=== PATIENT | female | born 1955 | race Caucasian/White ===

== ENCOUNTER 2019-12-04 12:46 | Outpatient (CLI) | payer MEDICARE, SELFPAY ==
--- NOTE | 2019-12-04 12:57 | MM_ITS ---
WS: [id number] BILATERAL DIGITAL SCREENING MAMMOGRAPHY WITH CAD CLINICAL INFORMATION: SCREENING HISTORY: Screening mammogram. No current complaints. COMPARISON: December 12, 2017 TECHNIQUE: Bilateral CC and MLO views. FINDINGS: The breasts are composed of heterogeneous fibroglandular density tissue, which can limit the detectio n of small underlying mass lesions. Lucent centered calcification right breast. No suspicious mass, a symmetry, calcifications, or architectural distortion. No evidence of malignancy. MM/[place] [id number] IMPRESSION: BI-RADS: 2-Benign FOLLOW UP: 1 Year Follow-up Recommend return to annual screening mammography.
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
== END 2019-12-04 12:47 | disposition home or self-care (01) ==
LOC: RADSHAW 12:54
PROVIDERS: Family Provider Family Medicine; PCP Family Medicine; Visit Provider Family Medicine
DX: Z12.31 Encounter for screening mammogram for malignant neoplasm of breast (principal); N95.8 Other specified menopausal and perimenopausal disorders; M85.80 Other specified disorders of bone density and structure, unspecified site
CPT/HCPCS: 77067; 77080

== ENCOUNTER → 2020-04-13 09:37 | Outpatient (BNVA) | payer MEDICARE, SELFPAY | PROVIDERS: Family Provider Family Medicine; PCP Family Medicine; Visit Provider Internal Medicine Rheumatology | DX: M05.9 Rheumatoid arthritis with rheumatoid factor, unspecified (principal); Z79.899 Other long term (current) drug therapy; M20.41 Other hammer toe(s) (acquired), right foot; M20.42 Other hammer toe(s) (acquired), left foot; F17.210 Nicotine dependence, cigarettes, uncomplicated; L84 Corns and callosities | CPT/HCPCS: 36415; 80076; 82565; 85025; 85651; 86140; 99214 ==

== ENCOUNTER → 2021-01-11 14:55 | Outpatient (BNVA) | payer MEDICARE, SELFPAY | PROVIDERS: Family Provider Family Medicine; PCP Family Medicine; Visit Provider Internal Medicine Rheumatology | DX: M06.041 Rheumatoid arthritis without rheumatoid factor, right hand (principal); M06.042 Rheumatoid arthritis without rheumatoid factor, left hand; M20.41 Other hammer toe(s) (acquired), right foot; M20.42 Other hammer toe(s) (acquired), left foot; Z79.899 Other long term (current) drug therapy; F17.210 Nicotine dependence, cigarettes, uncomplicated | CPT/HCPCS: 99214 ==

== ENCOUNTER 2021-09-14 13:34 | Outpatient (CLI) | payer MEDICARE, SELFPAY ==
--- NOTE | 2021-09-14 13:47 | CT_ITS ---
WS: [id number] LDCT LUNG CANCER SCREENING HISTORY: NICOTINE DEPENDENCE,CIGARETTES TECHNIQUE: Axial imaging performed from the apices to 1 cm below the costophrenic angles. Coronal and sagittal reformats are submitted with axial MIP series. All CT scans at [facility] use at least one of these dose optimization techniques: automated exposure control; mA and/or kV adjustment per patient size (includes targeted exams where dose is matched to clinical indication); or iterativ e reconstruction. DLP: 56.17 mGy.cm DIvol: 1.58 mGy COMPARISON: 02/12/2013 Diagnostic quality: Satisfactory Lung Nodules: Stable linear nodule and thickening along the RIGHT minor fissure unchanged since 2012. No additional pulmonary nodule or endobronchial lesions. Lungs: Mild hyperexpansion of the lungs. Heart: Heart is normal size. Mild pericardial thickening. Other findings: Moderate atherosclerosis aorta with ectasia. Normal size pulmonary artery. Cholelithi asis. CT/CT lung screening [id number] IMPRESSION: LUNG-RADS: 1-Negative FOLLOW UP: 12 Month: Continue annual screening with LDCT OTHER FINDINGS (S MODIFIER): None.
== END 2021-09-14 13:35 | disposition home or self-care (01) ==
LOC: CT 13:37
PROVIDERS: PCP Family Medicine; Visit Provider Family Medicine
DX: Z12.2 Encounter for screening for malignant neoplasm of respiratory organs (principal); F17.210 Nicotine dependence, cigarettes, uncomplicated
CPT/HCPCS: 71271

== ENCOUNTER 2021-11-22 17:56 | Emergency (ER) | payer MEDICARE, SELFPAY ==
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
[2021-11-22 18:38] VITALS: BP 165/83; PULSE 80; RESP 18; TEMP 36.8; O2SAT 92; BMI 27.8
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
== END 2021-11-22 19:29 | disposition home or self-care (01) ==
PROVIDERS: Emergency Provider Emergency Medicine; PCP Family Medicine
DX: S13.4XXA Sprain of ligaments of cervical spine, initial encounter (principal); S00.93XA Contusion of unspecified part of head, initial encounter; V89.2XXA Person injured in unspecified motor-vehicle accident, traffic, initial encounter; Y92.410 Unspecified street and highway as the place of occurrence of the external cause; E11.9 Type 2 diabetes mellitus without complications; F17.200 Nicotine dependence, unspecified, uncomplicated; Z79.52 Long term (current) use of systemic steroids; Z79.84 Long term (current) use of oral hypoglycemic drugs; Z79.4 Long term (current) use of insulin
CPT/HCPCS: 70450; 72125; 72128; 72131; 99282

== ENCOUNTER → 2022-05-29 14:50 | Outpatient (BNVA) | payer MEDICARE, SELFPAY | PROVIDERS: PCP Family Medicine; Visit Provider Internal Medicine Rheumatology | DX: M06.041 Rheumatoid arthritis without rheumatoid factor, right hand (principal); M06.042 Rheumatoid arthritis without rheumatoid factor, left hand; Z79.899 Other long term (current) drug therapy; L84 Corns and callosities; M20.40 Other hammer toe(s) (acquired), unspecified foot; F17.200 Nicotine dependence, unspecified, uncomplicated; Z71.89 Other specified counseling | CPT/HCPCS: 36415; 80076; 82565; 85025; 86140; 99214 ==

== ENCOUNTER → 2022-08-27 13:49 | Outpatient (BNVA) | payer MEDICARE, SELFPAY | PROVIDERS: PCP Family Medicine; Visit Provider Internal Medicine Rheumatology | DX: M06.041 Rheumatoid arthritis without rheumatoid factor, right hand (principal); M06.042 Rheumatoid arthritis without rheumatoid factor, left hand; Z79.899 Other long term (current) drug therapy; Z71.89 Other specified counseling; M20.40 Other hammer toe(s) (acquired), unspecified foot; F17.200 Nicotine dependence, unspecified, uncomplicated | CPT/HCPCS: 36415; 80076; 82565; 85025; 86140; 99214 ==

== ENCOUNTER → 2023-02-19 13:06 | Outpatient (BNVA) | payer MEDICARE, SELFPAY | PROVIDERS: PCP Family Medicine; Visit Provider Internal Medicine Rheumatology | DX: Z79.899 Other long term (current) drug therapy (principal); M06.041 Rheumatoid arthritis without rheumatoid factor, right hand; M06.042 Rheumatoid arthritis without rheumatoid factor, left hand; Z71.89 Other specified counseling | CPT/HCPCS: 99214 ==

== ENCOUNTER 2023-02-21 11:39 | Outpatient (CLI) | payer MEDICARE, SELFPAY ==
--- NOTE | 2023-02-21 11:49 | MM_ITS ---
WS: [id number] BILATERAL SCREENING DIGITAL TOMOSYNTHESIS MAMMOGRAM WITH CAD HISTORY: SCREEN COMPARISON: 12/04/2019, 12/12/2017 Bilateral CC and MLO views with tomosynthesis and synthetic mammography submitted. Computer aided det ection analyzed. Breast composition: There are scattered areas of fibroglandular density. No suspicious masses, microc alcifications or architectural distortion. Benign calcifications RIGHT breast. MM/[place] [id number] IMPRESSION: BI-RADS: 2-Benign FOLLOW UP: 1 Year Follow-up
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
== END 2023-02-21 11:40 | disposition home or self-care (01) ==
LOC: RAD 11:43
PROVIDERS: PCP Family Medicine; Visit Provider Family Medicine
DX: Z12.31 Encounter for screening mammogram for malignant neoplasm of breast (principal); Z78.0 Asymptomatic menopausal state
CPT/HCPCS: 77063; 77067; 77080

== ENCOUNTER 2023-03-13 05:44 | Emergency (ER) | payer MEDICARE, SELFPAY ==
[2023-03-13] VITALS (8 sets, daily range): BP systolic 154–196; BP diastolic 55–85; PULSE 70–91; RESP 16–19; TEMP 37; O2SAT 86–93; BMI 25.8
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
[2023-03-13 05:56] LABS: Basophils # 0.1 10^3/uL (0.0-0.1); Basophils % 0.9 %; Eosinophils # 0.1 10^3/uL (0.0-0.8); Eosinophils % 0.9 %; Hematocrit 45.4 % (37.0-47.0); Lymphocytes # 3.5 10^3/uL (0.8-4.8); Lymphocytes % 30.2 %; Mean Corpuscular Hemoglobin 31.3 pg (28.0-34.0); Mean Corpuscular Volume 94.6 fl (81-99); Mean Platelet Volume 10.2 fL (7.4-10.4); Monocytes # 0.5 10^3/uL (0.2-0.9); Monocytes % 4.2 %; Neutrophils # 7.37 10^3/uL (1.8-7.7); Neutrophils % 63.3 %; Nucleated Red Blood Cells % 0 %; Platelet Count 370 10^3/cmm (130-400); Red Cell Distribution Width 13.2 % (12.1-15.1); White Blood Count 11.6 10^3/uL (4.0-10.0)
--- NOTE | 2023-03-13 06:00 | XRR_ITS ---
PROCEDURE INFORMATION: Exam: XR Chest Exam date and time: 03/13/2023 6:07 AM Age: 67 years old Clinical indication: Dyspnea/cough TECHNIQUE: Imaging protocol: Radiologic exam of the chest. Views: 1 view. COMPARISON: CT CHEST 09/14/2021 2:05 PM FINDINGS: Lungs: No focal peripheral lung consolidation, air bronchogram formation, or silhouette sign. Pleural spaces: No pleural effusion or pneumothorax. Heart/Mediastinum: The cardiac silhouette is not enlarged. The mediastinal contours are normal. Bones/joints: No acute osseous abnormality. XR/XR chest 1V portable [id number] IMPRESSION: No sign of pneumonia.
--- NOTE | 2023-03-13 06:05 | ECG_ITS ---
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 Measurements Intervals [place] Rate: 72 P: 44 NV: 192 QRS: 44 QRSD: 96 T: 68 QT: 421 QTc: 462 Interpretive Statements SINUS RHYTHM MINIMAL ST DEPRESSION [0.025+ mV ST DEPRESSION] No previous ECG available for comparison Electronically Signed On 03-13-2023 20:59:53 CDT by Zuri Minaya M.D. [id number]
[2023-03-13 06:13] LABS: Glucose Point of Care 193 mg/dL (70-110)
[2023-03-13 06:15] LABS: Alanine Aminotransferase 33 U/L (0-33); Albumin Level 4.7 g/dL (3.5-5.2); Alkaline Phosphatase 115 U/L (35-105); Anion Gap 17.1 (5-19); Aspartate Amino Transferase 19 U/L (0-32); Blood Urea Nitrogen 12 mg/dL (8-23); Calcium 9.5 mg/dL (8.5-10.5); Carbon Dioxide 26 mmol/L (22-29); Chloride 104 mmol/L (98-107); Globulin 3.1 g/dL (1.3-4.6); Glomerular Filtration Rate 99.7 mL/min (90-130); Glucose 172 mg/dL (65-115); Lipase 25 U/L (13-60); Osmolality Calculated 300 mOsm/kg (285-295); Potassium 4.1 mmol/L (3.5-5.1); Sodium 143 mmol/L (136-145); Total Bilirubin 0.3 mg/dL (0.15-1.2); Total Protein 7.8 g/dL (6.6-8.7)
[2023-03-13] MEDS: labetalol 5 mg/mL SDV 20mL 10 MG IVP (06:25)
[2023-03-13] MEDS: promethazine 25 mg/mL SDV 1 mL IM (06:25)
[2023-03-13 06:26] LABS: Urine Appearance Cloudy (CLEAR); Urine Color Yellow (Yellow)
[2023-03-13 06:29] LABS: Protein Urine Trace (Negative); Specific Gravity, Urine 1.015 (1.005-1.030); pH Urine 8 (5-7)
[2023-03-13 06:30] LABS: Add Urine Culture? Yes; Add Urine Microscopic? YES; Bacteria Urine 3+ /hpf; Bilirubin Urine Neg (Negative); Blood Urine Trace (Negative); Glucose Urine UA 4+ (Normal); Ketones Urine Negative (Negative); Leukocyte Esterase Urine Negative (Negative); Mucus Urine 1+ /hpf; Nitrate Urine Negative (Negative); RBC Urine 0-4 /hpf (0-2); Urobilinogen Urine Neg (Negative); WBC Urine 0-4 /hpf (0-5)
--- NOTE | 2023-03-13 06:30 | CTR_ITS ---
PROCEDURE INFORMATION: Exam: CTA Chest With Contrast Exam date and time: 03/13/2023 6:46 AM Age: 67 years old Clinical indication: Fever and shortness of breath. TECHNIQUE: Imaging protocol: Computed tomographic angiography of the chest with contrast. 3D rendering (Not supervised by radiologist): MIP and/or 3D reconstructed images were created by the technologist. Radiation optimization: All CT scans at this facility use at least one of these dose optimization techniques: automated exposure control; mA and/or kV adjustment per patient size (includes targeted exams where dose is matched to clinical indication); or iterative reconstruction. Contrast material: OMNI 350; Contrast volume: 66 ml; Contrast route: INTRAVENOUS (IV); REPORTING DATA: Count of CT and Cardiac NM exams in prior 12 months: This patient has received 0 known CTs and 0 known cardiac nuclear medicine studies in the 12 months prior to the current study. COMPARISON: 1. CT CHEST 09/14/2021 2:05 PM 2. XR CHEST 03/13/2023 6:07 AM RADIATION DOSE METRICS: Total DLP (mGy-cm): 397.559 FINDINGS: Limitations: The study is technically limited by breathing motion artifact. Pulmonary arteries: No sign of acute pulmonary embolism. Aorta: No thoracic aortic aneurysm or dissection when allowing for motion artifact. Lungs: Bilateral dependent atelectasis. Fibrosis with traction bronchiectasis in the medial right lower lobe adjacent to thoracic spine osteophytes. Pleural spaces: No pleural effusion or pneumothorax. Heart: The heart is not enlarged. Trace pericardial effusion. Coronary arteries: Calcified coronary artery atherosclerotic plaque visualized. Lymph nodes: No pathologically enlarged lymph nodes. Gallbladder and bile ducts: There is cholelithiasis. Bones/joints: There are multilevel bridging osteophytes in the spine. Soft tissues: No acute soft tissue abnormality. CT/CT angio chest PE protcl [id number] IMPRESSION: No sign of acute pulmonary embolism.
[2023-03-13 06:41] LABS: NT Pro B Type Natriuretic Pept 36 pg/mL (0-125)
[2023-03-13] MEDS: iohexol 350 mg/mL 500 mL Btl (per mL) IV (06:59)
--- NOTE | 2023-03-13 07:22 | CT_ITS ---
WS: [id number] CT HEAD TECHNIQUE: Noncontrast CT of the head obtained from the skullbase to the vertex. CLINICAL INFORMATION: headache COMPARISON: CT November 22, 2021 DLP: 1088.[address] scans at [facility] use at least one of these dose optimization techniques: automated e xposure control; mA and/or kV adjustment per patient size (includes targeted exams where dose is matc hed to clinical indication); or iterative reconstruction. FINDINGS: Intracranial contrast from recent PE study. No evidence of intracranial hemorrhage or mass effect. Ventricular system and basal cisterns are cabrera nt. Mild small vessel changes with mild parenchymal volume loss. No extra-axial fluid collections. No evidence of mass or mass effect. Chronic lacunar infarct LEFT caudate. Vascular calcification. Air-fluid levels in the paranasal sinuses compatible with sinusitis. Partial opacification the ethmoi d air cells. Air-fluid levels in the maxillary sinuses. Mastoid air cells well aerated. CT/CT head wo con* [id number] IMPRESSION: 1. No evidence of intracranial hemorrhage or mass effect. 2. Paranasal sinusitis with air-fluid levels. 3. No acute intracranial findings.
[2023-03-13] MEDS: hyDRALAzine 20 mg/mL INJ 1 mL IVP (07:49)
[2023-03-13] MEDS: acetaminophen 500 mg Tablet 1000 MG PO (09:34)
== END 2023-03-13 11:18 | disposition home or self-care (01) ==
PROVIDERS: Emergency Provider Family Medicine; PCP Family Medicine
DX: J44.9 Chronic obstructive pulmonary disease, unspecified (principal); R09.02 Hypoxemia; I10 Essential (primary) hypertension; Z79.84 Long term (current) use of oral hypoglycemic drugs; Z79.4 Long term (current) use of insulin; E11.9 Type 2 diabetes mellitus without complications
CPT/HCPCS: 36416; 70450; 71045; 71275; 80053; 81001; 82962; 83690; 83880; 85025; 87077; 87086; 87186; 93005; 96372; 96374; 96375; 99285; J0360; J2550; J3490; Q9967

== ENCOUNTER 2023-04-19 19:40 | Emergency (ER) | payer MEDICARE, SELFPAY ==
[2023-04-19 19:47] VITALS: BP 147/77; PULSE 60; RESP 15; TEMP 36.8; O2SAT 95
[2023-04-19 20:32] VITALS: BP 175/73; RESP 16; O2SAT 93
--- NOTE | 2023-04-19 20:39 | XRR_ITS ---
PROCEDURE INFORMATION: Exam: XR Left Foot Exam date and time: 04/19/2023 9:03 PM Age: 68 years old Clinical indication: Injury or trauma; Fall; Other: Pain; Injury details: PT states HX L foot 5th metatarsal FX; Additional info: Pain post fall TECHNIQUE: Imaging protocol: Radiologic exam of the left foot. Views: 3 or more views. COMPARISON: No relevant prior studies available. FINDINGS: Bones/joints: Normal. Soft tissues: Normal. XR/XR foot LT min 3V* [id number] IMPRESSION: No acute findings.
--- NOTE | 2023-04-19 21:30 | ED_ITS ---
HPI - Extremity Problem General: Chief complaint: Extremity Injury, Lower Stated complaint: left foot injury Time Seen by Provider: 04/19/23 20:27 History of Present Illness: 68 years old female presents emergency room with left foot pain since 3:30 PM after sustaining a fall while at home. Patient described the pain as sharp throbbing sensation with severity of 7 out of 10 especially weightbearing and movement. Pain is relieved with rest. Patient [place] any head injury no loss of consciousness no neck pain nausea or vomiting. No chest pain or abdominal pain. Denies any numbness or tingling to the lower extremities. Review of Systems General: Reports: 10 or more systems reviewed and unremarkable except in HPI and below Musc: Reports: extremity pain; Denies: deformity PFSH ED PFSH: Medical History Chronic steroid use Diabetes mellitus Foot callus Hammertoes of both feet High risk medication use Immunization counseling Seronegative rheumatoid arthritis of both hands Seropositive rheumatoid arthritis Surgical History No pertinent past surgical history Family History Other Arthritis Cancer Heart disease Stroke Social History Smoking and tobacco status: never smoked Alcohol intake: never Physical Exam Const: COMMON NORMALS: no acute distress HENMT: COMMON NORMALS: normocephalic and external ears normal HEAD & SCALP: normocephalic EXTERNAL EAR: Yes external ears normal Neck/C-Spine: COMMON NORMALS: full ROM Resp: COMMON NORMALS: normal respiratory effort Extremity: LEFT LOWER EXTREMITY: Yes foot & digits Left foot and digits: Yes inspection (No visible deformity open wound), Yes palpation, Yes neurovascular exam (No abnormalities) and Yes tendon exam OTHER: Pain upon palpation on the lateral aspect of the foot Course Vital Signs: Vital signs: Vital Signs Temperature 98.2 F 04/19/23 19:47 Pulse Rate 60 04/19/23 19:47 Respiratory Rate 16 04/19/23 20:32 Blood Pressure 175/73 04/19/23 20:32 Pulse Oximetry 93 04/19/23 20:32 Oxygen Delivery Me thod Room Air 04/19/23 20:32 MDM - Extremity (Nontraumatic) Medical Decision Making Discussed the x-ray findings with the patient. Patient with put in a splint/wal jarret boot for sprain Differential Diagnosis Likely gout (Fracture, sprain, strain, dislocation) Lab Data Radiology Impressions Foot X-Ray 04/19/23 20:39 IMPRESSION: No acute findings. Discharge Plan Discharge Patient Disposition: Home Clinical Impression: Foot sprain, Fall Condition: Stable Prescriptions: New Percocet 2.5-325 mg tablet 1 tab PO Q8H PRN (Reason: pain) Qty: 7 0RF No Action fluoxetine [Prozac] 40 mg capsule 40 mg PO DAILY glipizide 10 mg tablet 10 mg PO DAILY atorvastatin [Lipitor] 80 mg tablet 80 mg PO DAILY lorazepam 0.5 mg tablet 0.5 mg PO DAILY PRN lisinopril 40 mg tablet 40 mg PO DAILY Janumet XR 100-1,000 mg tablet, ER multiphase 24 hr 1 tab PO DAILY Jardiance 10 mg tablet 10 mg PO DAILY ezetimibe [Zetia] 10 mg tablet 10 mg PO DAILY pantoprazole 40 mg tablet,delayed release (DR/EC) 40 mg PO DAILY Qty: 30 3RF insulin degludec SUBCUT Humira Pen 40 mg/0.8 mL pen injector kit 40 mg SUBCUT Q14D Qty: 2 3RF Rx Instructions: 340b methotrexate sodium 2.5 mg tablet See Rx Instructions PO Q7D Qty: 40 3RF Hold Instructions: Doctor's Order Rx Instructions: Split dose...4 tabs in am and 4 tabs in pm on same day once a week. PO every 7 days; diclofenac sodium 1 % gel 4 g topical QID Qty: 100 2RF Rx Instructions: apply to affected area as needed prednisone 5 mg tablet 5 mg PO DAILY Qty: 60 2RF folic acid 1 mg tablet 1 mg PO DAILY Qty: 90 1RF methocarbamol 750 mg tablet 750 mg PO Q6H PRN (Reason: spasms) Qty: 20 0RF Naprosyn 500 mg tablet 500 mg PO BID PRN (Reason: pain) Qty: 20 0RF amlodipine 5 mg tablet 5 mg PO DAILY Qty: 30 0RF Toprol XL 25 mg tablet extended release 24 hr 12.5 mg PO DAILY Qty: 15 0RF Discharge Orders: Discharge ED (Routine); Ordered 04/19/23 Ordered By: Sloane Benjamin Referrals: Arnoldo Avalos MD [Primary Care Provider] - Sloane Benjamin MD [Emergency Provider] - Patient Instructions: Opioid Safety, Pain Management Coding Level of Care Code ED Client Experience Specialist for Chg Geraldo
== END 2023-04-19 23:00 | disposition home or self-care (01) ==
PROVIDERS: Emergency Provider Family Medicine; PCP Family Medicine
DX: S93.602A Unspecified sprain of left foot, initial encounter (principal); Z79.84 Long term (current) use of oral hypoglycemic drugs; Z79.4 Long term (current) use of insulin; E11.9 Type 2 diabetes mellitus without complications; W19.XXXA Unspecified fall, initial encounter
CPT/HCPCS: 73630; 99283

== ENCOUNTER → 2023-07-10 14:57 | Outpatient (BNVA) | payer MEDICARE, SELFPAY | PROVIDERS: PCP Family Medicine; Visit Provider Internal Medicine Rheumatology | DX: M06.041 Rheumatoid arthritis without rheumatoid factor, right hand (principal); M06.042 Rheumatoid arthritis without rheumatoid factor, left hand; Z79.899 Other long term (current) drug therapy; Z71.89 Other specified counseling | CPT/HCPCS: 36415; 80076; 82565; 85025; 86140; 99214 ==

== ENCOUNTER → 2023-10-16 13:45 | Outpatient (BNVA) | payer MEDICARE, SELFPAY | PROVIDERS: PCP Family Medicine; Visit Provider Internal Medicine Rheumatology | DX: Z79.899 Other long term (current) drug therapy (principal); M06.041 Rheumatoid arthritis without rheumatoid factor, right hand; M06.042 Rheumatoid arthritis without rheumatoid factor, left hand; Z71.89 Other specified counseling | CPT/HCPCS: 99214 ==

== ENCOUNTER 2024-02-08 21:33 | Emergency (ER) | payer MEDICARE, SELFPAY ==
[2024-02-08 21:40] VITALS: BP 178/77; PULSE 90; RESP 18; TEMP 36.4; O2SAT 98
--- NOTE | 2024-02-08 22:23 | ED_ITS ---
HPI - Abdominal Pain 2 General: Chief Complaint: Abdominal Pain Stated Complaint: right abdomen pain Time Seen by Provider: 02/08/24 22:22 History of Present Illness: 68-year-old female comes in today with c omplaints of right flank pain radiating to the right abdomen. Patient reports pain started about 11:00 this morning. Patient appears in mild to moderate pain. Patient appears nontoxic. Review of Systems 2 General: Reports: 10 or more systems reviewed and unremarkable except in HPI and below GI: Reports: abdominal pain PFSH ED 2 PFSH: Medical History Chronic steroid use Seronegative rheumatoid arthritis of both hands Hammertoes of both feet Foot callus Diabetes mellitus High risk medication use Immunization counseling Seropositive rheumatoid arthritis Surgical History No pertinent past surgical history Family History Other Arthritis Cancer Heart disease Stroke Social History Smoking and tobacco/nicotine status: never used tobacco/nicotine Alcohol intake: never Physical Exam 2 Const: COMMON NORMALS: alert HENMT: COMMON NORMALS: normocephalic HEAD & SCALP: normocephalic Neck/C-Spine: COMMON NORMALS: full ROM Resp: COMMON NORMALS: normal respiratory effort and clear to auscultation bilaterally AUSCULTATION: clear to auscultation bilaterally Cardio: COMMON NORMALS: regular rate and regular rhythm RATE: regular rate RHYTHM: regular rhythm GI: COMMON NORMALS: Soft to palpation PALPATION: Yes Soft to palpation : BLADDER/KIDNEY EXAM: Yes CVA tenderness on the right Back/Pelvis: COMMON NORMALS: thoracic and lumbar spine normal to inspection GENERAL BACK: Yes CVA tenderness Extremity: COMMON NORMALS: normal to inspection Neuro: SENSORIUM/ORIENTATION: Yes alert Skin: COMMON NORMALS: turgor normal GENERAL SKIN EXAM: turgor normal Course 2 Vital Signs: Vital signs: Vital Signs Temperature 97.6 F 02/08/24 21:40 Pulse Rate 63 02/08/24 23:41 Respiratory Rate 16 02/08/24 23:41 Blood Pressure 141/81 02/08/24 23:41 Pulse Oximetry 94 02/08/24 23:41 Oxygen Delivery Me thod Room Air 02/08/24 23:41 MDM - Abdominal Pain Medical Decision Making Patient comes in today for complaints of right flank pain radiating to the right abdomen. On exam abdomen soft with tenderness in the right upper quadrant. Patient also has positive CVA tenderness. Vital signs are normal except for elevated blood pressure. Differential diagnosis includes pyelonephritis, renal calculi, gallbladder disease, pancreatitis. White blood cell count is 11.6. CMP was unremarkable. Urinalysis had positive nitrates and increased white blood cells on high frequency microscope. CT of the abdomen pelvis noted gallstones but no signs of obstruction. Remainder of exam was unremarkable. Believe the patient might have some mild pyelonephritis we will go ahead and treat with ceftriaxone and recommend cephalexin for home therapy. Patient was offered medication for pain but refused. Discussed gallstones and no signs of obstruction at this time but if patient's pain was to come back or she started having some jaundice she needed to come back in for further evaluation. Patient reported understanding of care plan need for follow-up or return to the ER. Lab Data 02/08/24 23:58 02/08/24 23:58 Labs/Radiology: Radiology Impressions Abdomen/Pelvis CT 02/08/24 23:11 IMPRESSION: 1. No acute disease. 2. No evidence of urolithiasis. 3. Cholelithiasis. Contracted gallbladder. No definitive secondary evidence of acute cholecystitis. Consider right upper quadrant ultrasound in the appropriate clinical setting. 4. Other nonemergent findings above. Laboratory Results WBC 11.67 10^3/uL (3.29-11.43) H 02/08/24 23:58 Corrected WBC Cancelled 02/08/24 23:35 RBC 4.15 10^6/uL (3.85-5.65) 02/08/24 23:58 Hgb 13.20 g/dL (11.27-16.99) 02/08/24 23:58 Hct 39.1 % (36-47) 02/08/24 23:58 MCV 94.2 fl (85-98) 02/08/24 23:58 MCH 31.8 pg (27-33) 02/08/24 23:58 MCHC 33.8 g/dL (30-55) 02/08/24 23:58 RDW 14.9 % (12.1-15.1) 02/08/24 23:58 Plt Count 290 10^3/cmm (157-399) 02/08/24 23:58 MPV 9.6 fL (7.4-10.4) 02/08/24 23:58 Gran % Cancelled 02/08/24 23:35 Neut % (Auto) 58.1 % 02/08/24 23:58 Lymph % (Auto) 34.7 % 02/08/24 23:58 [place] % (Auto) 4.5 % 02/08/24 23:58 Eos % (Auto) 1.4 % 02/08/24 23:58 Baso % (Auto) 1.0 % 02/08/24 23:58 Neut # (Auto) 6.78 10^3/uL (1.8-7.7) 02/08/24 23:58 Lymph # (Auto) 4.1 10^3/uL (0.8-4.8) 02/08/24 23:58 [place] # (Auto) 0.5 10^3/uL (0.2-0.9) 02/08/24 23:58 Eos # (Auto) 0.2 10^3/uL (0.0-0.8) 02/08/24 23:58 Baso # (Auto) 0.1 10^3/uL (0.0-0.1) 02/08/24 23:58 Absolute Gran (auto) Cancelled 02/08/24 23:35 Nucleated RBC % (auto) 0 % 02/08/24 23:58 Nucleated RBCs # 0.0 /100WBC 02/08/24 23:58 Sodium 143 mmol/L (136-145) 02/08/24 23:58 Potassium 3.6 mmol/L (3.5-5.1) 02/08/24 23:58 Chloride 110 mmol/L (98-107) H 02/08/24 23:58 Carbon Dioxide 23 mmol/L (22-29) 02/08/24 23:58 Anion Gap 13.6 (5-19) 02/08/24 23:58 BUN 14 mg/dL (8-23) 02/08/24 23:58 Creatinine 0.6 mg/dL (0.5-0.9) 02/08/24 23:58 GFR Calculation 99.4 mL/min (90-130) 02/08/24 23:58 Glucose 135 mg/dL (65-115) H 02/08/24 23:58 Calculated Osmolality 299 mOsm/kg (285-295) H 02/08/24 23:58 Calcium 9.0 mg/dL (8.5-10.5) 02/08/24 23:58 Total Bilirubin 0.2 mg/dL (0.15-1.2) 02/08/24 23:58 AST 12 U/L (0-32) 02/08/24 23:58 ALT 16 U/L (0-33) 02/08/24 23:58 Alkaline Phosphatase 105 U/L (35-105) 02/08/24 23:58 Total Protein 6.4 g/dL (6.6-8.7) L 02/08/24 23:58 Albumin 3.9 g/dL (3.5-5.2) 02/08/24 23:58 Globulin 2.5 g/dL (1.3-4.6) 02/08/24 23:58 Lipase 27 U/L (13-60) 02/08/24 23:58 Urine Color Yellow (Yellow) 02/08/24 22:00 Urine Appearance Cloudy (CLEAR) A 02/08/24 22:00 Urine pH 5 (5-7) 02/08/24 22:00 Ur Specific [place] 1.020 (1.005-1.030) 02/08/24 22:00 Urine Protein Neg (Negative) 02/08/24 22:00 Urine Glucose (UA) 4+ (Normal) H 02/08/24 22:00 Urine Ketones 1+ (Negative) H 02/08/24 22:00 Urine Blood Trace (Negative) H 02/08/24 22:00 Urine Nitrate Positive (Negative) H 02/08/24 22:00 Urine Bilirubin Neg (Negative) 02/08/24 22:00 Urine Urobilinogen Neg mg/dL (Negative) 02/08/24 22:00 Ur Leukocyte Esterase Negative (Negative) 02/08/24 22:00 Urine RBC 0-4 /hpf (0-2) H 02/08/24 22:00 Urine WBC 5-10 /hpf (0-5) H 02/08/24 22:00 Ur Squamous Epith Cells 5-10 /hpf (0-5) H 02/08/24 22:00 Amorphous Sediment Not Reportable 02/08/24 22:00 Urine Bacteria 3+ /hpf (NONE) H 02/08/24 22:00 All radiology interpretation(s) finalized by discharge Discharge Plan Discharge Patient Disposition: Home Clinical Impression: Acute pyelonephritis Cholelithiasis Qualifiers: Cholelithiasis location: gallbladder Cholecystitis presence: without cholecystitis Biliary obstruction: with biliary obstruction Qualified Code(s): K 80.21 - Calculus of gallbladder without cholecystitis with obstruction Condition: Stable Prescriptions: New cephalexin 500 mg capsule 500 mg PO BID 7 Days Qty: 14 0RF No Action fluoxetine [Prozac] 40 mg capsule 40 mg PO DAILY glipizide 10 mg tablet 10 mg PO DAILY atorvastatin [Lipitor] 80 mg tablet 80 mg PO DAILY lorazepam 0.5 mg tablet 0.5 mg PO DAILY PRN lisinopril 40 mg tablet 40 mg PO DAILY Janumet XR 100-1,000 mg tablet, ER multiphase 24 hr 1 tab PO DAILY Jardiance 10 mg tablet 10 mg PO DAILY ezetimibe [Zetia] 10 mg tablet 10 mg PO DAILY pantoprazole 40 mg tablet,delayed release (DR/EC) 40 mg PO DAILY Qty: 30 3RF insulin degludec SUBCUT diclofenac sodium 1 % gel 4 g topical QID Qty: 100 2RF Rx Instructions: apply to affected area as needed Humira Pen 40 mg/0.8 mL pen injector kit 40 mg SUBCUT Q14D Qty: 2 3RF Rx Instructions: 340b folic acid 1 mg tablet 1 mg PO DAILY Qty: 90 1RF methotrexate sodium 2.5 mg tablet See Rx Instructions PO Q7D Qty: 40 3RF Hold Instructions: Doctor's Order Rx Instructions: Split dose...4 tabs in am and 4 tabs in pm on same day once a week. PO every 7 days; prednisone 5 mg tablet 5 mg PO DAILY Qty: 60 2RF amlodipine 5 mg tablet 5 mg PO DAILY Qty: 30 0RF Toprol XL 25 mg tablet extended release 24 hr 12.5 mg PO DAILY Qty: 15 0RF Discharge Orders: Discharge ED (Routine); Ordered 02/09/24 Ordered By: Kenrick Marroquin Referrals: Avalos,Arnoldo Sidney, MD [Primary Care Provider] - Discharge Diet: Usual diet Discharge Activity: Increase activity as tolerated Patient Instructions: Kidney Infection (ED) Activity Restrictions/Additional Instructions: Take antibiotics as directed. Drink plenty of water and fluids. Continue with routine medications as directed. Follow-up with primary care in 2 to 3 days for recheck. Return to ED for worsening symptoms such as inability to hold fluids down, fever greater than 100.4, uncontrolled pain. Coding Level of Care Code ED Health Technician Hearing for Gloria Chow
[2024-02-08 23:01] LABS: Add Urine Microscopic? YES; Bacteria Urine 3+ /hpf; Bilirubin Urine Neg (Negative); Blood Urine Trace (Negative); Glucose Urine UA 4+ (Normal); Ketones Urine 1+ (Negative); Leukocyte Esterase Urine Negative (Negative); Nitrate Urine Positive (Negative); Protein Urine Neg (Negative); RBC Urine 0-4 /hpf (0-2); Urine Appearance Cloudy (CLEAR); Urine Color Yellow (Yellow); Urobilinogen Urine Neg (Negative); pH Urine 5 (5-7)
[2024-02-08 23:02] LABS: Add Urine Culture? Yes
--- NOTE | 2024-02-08 23:11 | CTR_ITS ---
PROCEDURE INFORMATION: Exam: CT Abdomen And Pelvis Without Contrast Exam date and time: 02/08/2024 11:18 PM Age: 68 years old Clinical indication: Abdominal pain; Right; Prior surgery; Surgery date: 6+ months; Surgery type: Appendectomy. Oophorectomy; Patient HX: C/O RT flank pain; Additional info: Right flank pain TECHNIQUE: Imaging protocol: Computed tomography of the abdomen and pelvis without contrast. Radiation optimization: All CT scans at this facility use at least one of these dose optimization techniques: automated exposure control; mA and/or kV adjustment per patient size (includes targeted exams where dose is matched to clinical indication); or iterative reconstruction. COMPARISON: 1. CT angio chest PE protcl [id number] 03/13/2023 6:[address] L-spine 11/22/2021 RADIATION DOSE METRICS: Total DLP (mGy-cm): 535.85 FINDINGS: Lungs: Mild dependent changes in the posterior lower lobes. Heart: Heart size is within normal limits. There is no pericardial effusion or pericardial thickening. Liver: The liver is normal. No hepatic masses are identified. Gallbladder and bile ducts: Gallstones are identified within a contracted gallbladder. No adjacent inflammatory change. Pancreas: The pancreas is atrophic without obvious abnormality. Spleen: The spleen is normal. Adrenal glands: The adrenal glands are normal. Kidneys and ureters: No renal calcifications are identified. There is no hydronephrosis. Stomach and bowel: Mild colonic diverticulosis without diverticulitis. Moderate retained stool, particularly in the right colon and cecum. There is no large or small bowel obstruction. There is no evidence of bowel wall thickening. Appendix: A normal appendix is not identified. There is no secondary evidence of acute appendicitis. Intraperitoneal space: No inflammatory changes are identified. There is no free fluid or fluid collection seen. There is no pneumoperitoneum. Vasculature: Atherosclerotic calcifications are present. No aneurysm is identified. Lymph nodes: There are no enlarged retroperitoneal or mesenteric lymph nodes. Urinary bladder: The bladder is unremarkable. Reproductive: The uterus is absent. Bones/joints: New height loss enlarged Schmorl's node in superior endplate of L3 when compared to 2021. No acute osseous abnormalities are seen. Soft tissues: Tiny periumbilical hernia containing only fat. The soft tissues are otherwise within normal limits. CT/CT kidney stone [id number] IMPRESSION: 1. No acute disease. 2. No evidence of urolithiasis. 3. Cholelithiasis. Contracted gallbladder. No definitive secondary evidence of acute cholecystitis. Consider right upper quadrant ultrasound in the appropriate clinical setting. 4. Other nonemergent findings above.
[2024-02-08] MEDS: ondansetron 2 mg/ML SDV 2 mL 4 MG IVP (23:36)
[2024-02-08] MEDS: fentaNYL 50 mcg/mL INJ 2mL IVP (23:39)
[2024-02-08] MEDS: ketorolac 30 mg/mL INJ 15 MG IVP (23:39)
[2024-02-08 23:41] VITALS: BP 141/81; PULSE 63; RESP 16; O2SAT 94
[2024-02-09 00:02] LABS: Basophils # 0.1 10^3/uL (0.0-0.1); Eosinophils # 0.2 10^3/uL (0.0-0.8); Eosinophils % 1.4 %; Hematocrit 39.1 % (36-47); Lymphocytes # 4.1 10^3/uL (0.8-4.8); Lymphocytes % 34.7 %; Mean Corpuscular HGB Conc 33.8 g/dL (30-55); Mean Corpuscular Hemoglobin 31.8 pg (27-33); Mean Corpuscular Volume 94.2 fl (85-98); Mean Platelet Volume 9.6 fL (7.4-10.4); Monocytes # 0.5 10^3/uL (0.2-0.9); Monocytes % 4.5 %; Neutrophils # 6.78 10^3/uL (1.8-7.7); Neutrophils % 58.1 %; Nucleated Red Blood Cells % 0 %; Platelet Count 290 10^3/cmm (157-399); Red Blood Count 4.15 10^6/uL (3.85-5.65); Red Cell Distribution Width 14.9 % (12.1-15.1); White Blood Count 11.67 10^3/uL (3.29-11.43)
[2024-02-09 00:22] LABS: Alanine Aminotransferase 16 U/L (0-33); Albumin Level 3.9 g/dL (3.5-5.2); Alkaline Phosphatase 105 U/L (35-105); Anion Gap 13.6 (5-19); Aspartate Amino Transferase 12 U/L (0-32); Blood Urea Nitrogen 14 mg/dL (8-23); Carbon Dioxide 23 mmol/L (22-29); Chloride 110 mmol/L (98-107); Creatinine Clr Calc Pharmacy 71.7732; Globulin 2.5 g/dL (1.3-4.6); Glomerular Filtration Rate 99.4 mL/min (90-130); Glucose 135 mg/dL (65-115); Lipase 27 U/L (13-60); Osmolality Calculated 299 mOsm/kg (285-295); Potassium 3.6 mmol/L (3.5-5.1); Sodium 143 mmol/L (136-145); Total Bilirubin 0.2 mg/dL (0.15-1.2); Total Protein 6.4 g/dL (6.6-8.7)
[2024-02-09] MEDS: cefTRIAXone 1,000 MG in sodium chloride 0.9% (plus) 50 ML 100 MG IV (01:01)
[2024-02-09] MEDS: sodium chloride 0.9% 500 ML 999 ML IV (01:01)
[2024-02-09 01:45] VITALS: BP 129/79; PULSE 63; RESP 16; O2SAT 93
== END 2024-02-09 01:43 | disposition home or self-care (01) ==
PROVIDERS: Emergency Provider Nurse Practitioner Family; PCP Family Medicine
DX: N10 Acute pyelonephritis (principal); K80.21 Calculus of gallbladder without cholecystitis with obstruction; Z79.4 Long term (current) use of insulin; Z79.890 Hormone replacement therapy; E11.9 Type 2 diabetes mellitus without complications
CPT/HCPCS: 36415; 74176; 80053; 81001; 83690; 85025; 87077; 87086; 87186; 96365; 96375; 99285; J0696; J1885; J2405; J3010; J7040

== ENCOUNTER 2024-08-30 10:03 | Inpatient (IN) | payer MEDICARE, SELFPAY ==
[2024-08-30 10:18] VITALS: BP 109/66; PULSE 85; RESP 18; TEMP 37.1; O2SAT 88; BMI 24.3
--- NOTE | 2024-08-30 10:59 | ED_ITS ---
HPI - Weakness 2 General: Chief complaint: Weakness Stated complaint: fatigue, not drinking or eating vomitting Time Seen by Provider: 08/30/24 10:27 History of Present Illness: Patient presents to the ER with complaints of weakness fatigue and inability to eat or drink anything for about the last 3 days. Patient has had nausea vomiting diarrhea. Patient says her balance is worsened. Patient does have a history of COPD but does not wear oxygen. Upon arrival her O2 sat was 88% on room air. Patient denies any abdominal pain. Patient's family says she only has eaten in about 4 days has been about a glass of milk, couple pieces of toast, and half a bottle of Gatorade. Review of Systems 2 General: Reports: 10 or more systems reviewed and unremarkable except in HPI and below PFSH ED 2 PFSH: Medical History Chronic steroid use Seronegative rheumatoid arthritis of both hands Hammertoes of both feet Foot callus Diabetes mellitus High risk medication use Immunization counseling Seropositive rheumatoid arthritis Surgical History No pertinent past surgical history Family History Other Arthritis Cancer Heart disease Stroke Social History Smoking and tobacco/nicotine status: never used tobacco/nicotine Alcohol intake: never Physical Exam 2 Const: COMMON NORMALS: no acute distress, average body habitus, patient oriented x3, no limitations, healthy appearing, alert and well nourished HENMT: COMMON NORMALS: normocephalic, atraumatic, hearing grossly normal bilaterally, external ears normal, Normal external nose present and moist oral mucous membranes HEAD & SCALP: normocephalic and atraumatic NOSE: Normal external nose present EXTERNAL EAR: Yes external ears normal Neck/C-Spine: COMMON NORMALS: full ROM, no lymphadenopathy, supple, no meningeal signs, no JVD and Thyroid normal THYROID: Thyroid normal Chest: COMMONS NORMALS: normal inspection of the chest and normal palpation of entire chest wall Resp: COMMON NORMALS: normal respiratory effort, No retractions, No use of accessory muscles and clear to auscultation bilaterally AUSCULTATION: clear to auscultation bilaterally Cardio: COMMON NORMALS: no JVD, regular rate, regular rhythm, S1 normal heart sound present, S2 normal heart sound present, No gallops present (Cardio), No clicks present (Cardio), No murmurs present (Cardio) and No rub (Cardio) R ATE: regular rate RHYTHM: regular rhythm HEART SOUNDS: S1 normal heart sound present and S2 normal heart sound present GI: COMMON NORMALS: Normal to inspection, nondistended, normoactive bowel sounds present, Soft to palpation, non-tender, No hepatosplenomegaly present and no masses PALPATION: Yes Soft to palpation and Yes No hepatosplenomegaly present Neuro: COMMON NORMALS: patient oriented x3 SENSORIUM/ORIENTATION: Yes alert MENINGEAL SIGNS: Yes no meningeal signs Course 2 Vital Signs: Vital signs: Vital Signs Temperature 100.2 F H 08/30/24 15:54 Pulse Rate 89 08/30/24 15:54 Respiratory Rate 17 08/30/24 15:54 Blood Pressure 129/65 08/30/24 15:54 Pulse Oximetry 93 08/30/24 15:54 Oxygen Delivery Me thod Nasal Cannula 08/30/24 15:54 MDM - Weakness Medical Decision Making Lab work showed white count of 38.5, CPK of approximately 919, chest x-ray showed multifocal pneumonia, patient was given 1 L bolus normal saline, 4 mg of Zofran, 3.375 g of Zosyn, blood cultures was obtained, patient will be discussed with Dr. Onofre, discussed case with Dr. Onofre we will get troponins and place patient on medical floor Medical Records I reviewed the patient's medical records. Lab Data I reviewed the patient's lab results. 08/30/24 11:12 08/30/24 10:49 Radiology Impressions Chest X-Ray 08/30/24 11:23 IMPRESSION: Imaging findings concerning for multifocal pneumonia. Laboratory Results WBC 38.57 10^3/uL (3.29-11.43) H* 08/30/24 11:12 Corrected WBC Cancelled 08/30/24 10:49 RBC 3.47 10^6/uL (3.85-5.65) L 08/30/24 11:12 Hgb 11.10 g/dL (11.27-16.99) L 08/30/24 11:12 Hct 32.8 % (36-47) L 08/30/24 11:12 MCV 94.5 fl (85-98) 08/30/24 11:12 MCH 32.0 pg (27-33) 08/30/24 11:12 MCHC 33.8 g/dL (30-55) 08/30/24 11:12 RDW 14.6 % (12.1-15.1) 08/30/24 11:12 Plt Count 238 10^3/cmm (157-399) 08/30/24 11:12 MPV 9.9 fL (7.4-10.4) 08/30/24 11:12 Gran % Cancelled 08/30/24 10:49 Neut % (Auto) 84.0 % 08/30/24 11:12 Lymph % (Auto) 6.9 % 08/30/24 11:12 [place] % (Auto) 5.2 % 08/30/24 11:12 Eos % (Auto) 0.0 % 08/30/24 11:12 Baso % (Auto) 0.3 % 08/30/24 11:12 Neut # (Auto) 32.41 10^3/uL (1.8-7.7) H 08/30/24 11:12 Lymph # (Auto) 2.7 10^3/uL (0.8-4.8) 08/30/24 11:12 [place] # (Auto) 2.0 10^3/uL (0.2-0.9) H 08/30/24 11:12 Eos # (Auto) 0.0 10^3/uL (0.0-0.8) 08/30/24 11:12 Baso # (Auto) 0.1 10^3/uL (0.0-0.1) 08/30/24 11:12 Absolute Gran (auto) Cancelled 08/30/24 10:49 Nucleated RBC % (auto) 0 % 08/30/24 11:12 Nucleated RBCs # 0.0 /100WBC 08/30/24 11:12 Sodium 131 mmol/L (136-145) L 08/30/24 10:49 Potassium 3.4 mmol/L (3.5-5.1) L 08/30/24 10:49 Chloride 95 mmol/L (98-107) L 08/30/24 10:49 Carbon Dioxide 24 mmol/L (22-29) 08/30/24 10:49 Anion Gap 15.4 (5-19) 08/30/24 10:49 BUN 12 mg/dL (8-23) 08/30/24 10:49 Creatinine 0.6 mg/dL (0.5-0.9) 08/30/24 10:49 GFR Calculation 99.1 mL/min (90-130) 08/30/24 10:49 Glucose 287 mg/dL (65-115) H 08/30/24 10:49 Calculated Osmolality 282 mOsm/kg (285-295) L 08/30/24 10:49 Lactic Acid 1.5 mmol/L (0.5-2.2) 08/30/24 10:49 Calcium 8.7 mg/dL (8.5-10.5) 08/30/24 10:49 Magnesium 1.7 mg/dL (1.7-2.3) 08/30/24 10:49 Total Bilirubin 1.0 mg/dL (0.15-1.2) 08/30/24 10:49 AST 28 U/L (0-32) 08/30/24 10:49 ALT 17 U/L (0-33) 08/30/24 10:49 Alkaline Phosphatase 138 U/L (35-105) H 08/30/24 10:49 Creatine Kinase 919 U/L (26-192) H* 08/30/24 10:49 Total Protein 6.8 g/dL (6.6-8.7) 08/30/24 10:49 Albumin 3.7 g/dL (3.5-5.2) 08/30/24 10:49 Globulin 3.1 g/dL (1.3-4.6) 08/30/24 10:49 Lipase 10 U/L (13-60) L 08/30/24 10:49 Procalcitonin 2.78 ng/mL (0-0.5) H 08/30/24 10:49 Urine Color [place] (Yellow) A 08/30/24 12:51 Urine Appearance Cloudy (CLEAR) A 08/30/24 12:51 Urine pH 5.5 (5-7) 08/30/24 12:51 Ur Specific [place] 1.027 (1.005-1.030) 08/30/24 12:51 Urine Protein 2+ (Negative) A 08/30/24 12:51 Urine Glucose (UA) 1+ (Normal) H 08/30/24 12:51 Urine Ketones Trace (Negative) 08/30/24 12:51 Urine Blood 2+ (Negative) A 08/30/24 12:51 Urine Nitrate Negative (Negative) 08/30/24 12:51 Urine Bilirubin 1+ (Negative) H 08/30/24 12:51 Urine Urobilinogen 1.0 mg/dL (Negative) 08/30/24 12:51 Ur Leukocyte Esterase Trace (Negative) A 08/30/24 12:51 Urine RBC 0-4 /hpf (0-2) H 08/30/24 12:51 Urine WBC 0-4 /hpf (0-5) H 08/30/24 12:51 Ur Squamous Epith Cells 10-15 /hpf (0-5) H 08/30/24 12:51 Amorphous Sediment 2+ /hpf 08/30/24 12:51 Urine Bacteria 1+ /hpf (NONE) H 08/30/24 12:51 Coronavirus (PCR) Negative (Negative) 08/30/24 12:20 Influenza A (PCR) Negative (Negative) 08/30/24 12:20 Influenza Type B (PCR) Negative (Negative) 08/30/24 12:20 RSV (PCR) Negative (Negative) 08/30/24 12:20 All radiology interpretation(s) finalized by discharge Discharge Plan Discharge Patient Disposition: Admitted As Inpatient Admit Provider: Israel Onofre Clinical Impression: Multifocal pneumonia, Generalized weakness Rhabdomyolysis Qualifiers: Rhabdomyolysis type: non-traumatic Qualified Code(s): M62.82 - Rhabdomyolysis Condition: Stable Coding Level of Care Code ED Morgue Keeper for Chg Fwd Related Data Home Medications Medication Instructions Recorded Confirmed atorvastatin 80 mg tablet (Lipitor) 80 mg PO DAILY 04/12/20 10/16/23 empagliflozin 10 mg tablet 10 mg PO DAILY 04/12/20 10/16/23 (Jardiance) ezetimibe 10 mg tablet (Zetia) 10 mg PO DAILY 04/12/20 10/16/23 fluoxetine 40 mg capsule (Prozac) 40 mg PO DAILY 04/12/20 10/16/23 glipizide 10 mg tablet 10 mg PO DAILY 04/12/20 10/16/23 lisinopril 40 mg tablet 40 mg PO DAILY 04/12/20 10/16/23 lorazepam 0.5 mg tablet 0.5 mg PO DAILY PRN 04/12/20 10/16/23 sitagliptin phos 100 mg-metformin 1 tab PO DAILY 04/12/20 10/16/23 ER 1,000 mg tablet,extend rel 24h mp (Janumet XR) insulin degludec [Tresiba SUBCUT 04/13/20 10/16/23 FlexTouch U-100] Previous Rx's Medication Instructions Recorded pantoprazole 40 mg tablet,delayed 40 mg PO DAILY #30 tabs 01/11/21 release prednisone 5 mg tablet 5 mg PO DAILY #60 tabs 08/14/22 diclofenac sodium 1 % topical gel 4 g topical QID #100 grams 02/19/23 amlodipine 5 mg tablet 5 mg PO DAILY #30 tabs 03/13/23 metoprolol succinate 25 mg 12.5 mg (1/2 x 25 mg) PO DAILY #15 03/13/23 tablet,extended release 24 hr tabs (Toprol XL) adalimumab 40 mg/0.8 mL 40 mg (0.8 mL) SUBCUT Q14D #2 ea 10/16/23 subcutaneous pen kit (Humira Pen) folic acid 1 mg tablet 1 mg PO DAILY #90 tabs 10/16/23 methotrexate sodium 2.5 mg tablet See Rx Instructions PO Q7D #40 tabs 10/16/23 Allergies Allergy/AdvReac Type Severity Reaction Status Date / Time aspirin Allergy ADR-Nausea Verified 02/08/24 21:44 codeine Allergy Unknown Verified 02/08/24 21:44 penicillin G AdvReac Intermediate ADR-Headach Unverified 08/30/24 13:55 e
[2024-08-30] MEDS: ondansetron 2 mg/ML SDV 2 mL 4 MG IVP (11:04)
[2024-08-30] MEDS: sodium chloride 0.9% 1,000 ML 999 ML IV (11:10)
[2024-08-30 11:11] LABS: Alanine Aminotransferase 17 U/L (0-33); Albumin Level 3.7 g/dL (3.5-5.2); Alkaline Phosphatase 138 U/L (35-105); Anion Gap 15.4 (5-19); Aspartate Amino Transferase 28 U/L (0-32); Blood Urea Nitrogen 12 mg/dL (8-23); Calcium 8.7 mg/dL (8.5-10.5); Carbon Dioxide 24 mmol/L (22-29); Chloride 95 mmol/L (98-107); Creatinine Clr Calc Pharmacy 70.5864; Globulin 3.1 g/dL (1.3-4.6); Glomerular Filtration Rate 99.1 mL/min (90-130); Glucose 287 mg/dL (65-115); Lipase 10 U/L (13-60); Magnesium 1.7 mg/dL (1.7-2.3); Osmolality Calculated 282 mOsm/kg (285-295); Potassium 3.4 mmol/L (3.5-5.1); Sodium 131 mmol/L (136-145); Total Protein 6.8 g/dL (6.6-8.7)
[2024-08-30 11:19] LABS: Basophils # 0.1 10^3/uL (0.0-0.1); Basophils % 0.3 %; Hematocrit 32.8 % (36-47); Lymphocytes # 2.7 10^3/uL (0.8-4.8); Lymphocytes % 6.9 %; Mean Corpuscular HGB Conc 33.8 g/dL (30-55); Mean Corpuscular Volume 94.5 fl (85-98); Mean Platelet Volume 9.9 fL (7.4-10.4); Monocytes % 5.2 %; Neutrophils # 32.41 10^3/uL (1.8-7.7); Nucleated Red Blood Cells % 0 %; Platelet Count 238 10^3/cmm (157-399); Red Blood Count 3.47 10^6/uL (3.85-5.65); Red Cell Distribution Width 14.6 % (12.1-15.1)
[2024-08-30 11:21] LABS: White Blood Count 38.57 10^3/uL (3.29-11.43)
--- NOTE | 2024-08-30 11:23 | XRR_ITS ---
PROCEDURE INFORMATION: Exam: XR Chest Exam date and time: 08/30/2024 11:30 AM Age: 69 years old Clinical indication: Other: Fatigue TECHNIQUE: Imaging protocol: Radiologic exam of the chest. Views: 1 view. COMPARISON: CT angio chest PE protcl [id number] 03/13/2023 6:46 AM FINDINGS: Lungs: There are patchy airspace opacities in the lower lungs, [id number], concerning for multifocal pneumonia. Pleural spaces: Unremarkable. No pleural effusion. No pneumothorax. Heart/Mediastinum: Stable cardiomediastinal silhouette. Bones/joints: Degenerative changes of the spine seen. XR/XR chest 1V portable [id number] IMPRESSION: Imaging findings concerning for multifocal pneumonia.
[2024-08-30 12:03] LABS: Lactic Sepsis W/Reflex 1.5 mmol/L (0.5-2.2)
[2024-08-30 12:25] LABS: Procalcitonin 2.78 ng/mL (0-0.5)
[2024-08-30 12:27] LABS: Creatine Phosphokinase 919 U/L (26-192)
[2024-08-30 12:32] VITALS: BP 143/86; PULSE 77; O2SAT 98
[2024-08-30] MEDS: piperacillin-tazobactam 3.375 GM in sodium chloride 0.9% (plus) 50 ML IV (13:12)
[2024-08-30 13:18] LABS: Covid PCR NEGATIVE (Negative); Influenza A NEGATIVE (Negative); Influenza B NEGATIVE (Negative); Respiratory Syncytial Virus Ce NEGATIVE (Negative)
--- NOTE | 2024-08-30 13:22 | ECG_ITS ---
[facility] Test Date: 2024-08-30 Pat Name: Palma Gonzalez Department: Room: Gender: Female [employer]: : 1955 Requested By: Delta Covington Order Number: [id number] MD: Zuri Minaya M.D. Measurements Intervals [place] Rate: 79 P: 4 AL: 176 QRS: -16 QRSD: 93 T: 48 QT: 388 QTc: 447 Interpretive Statements SINUS RHYTHM SEPTAL MYOCARDIAL INFARCTION , OF INDETERMINATE AGE [40+ ms Q WAVE IN V1/V2] Compared to ECG 03/13/2023 06:38:04 Myocardial infarct finding now present ST (T wave) deviation no longer present Electronically Signed On 09-01-2024 00:48:50 CDT by Zuri Minaya M.D. [email or web address]
[2024-08-30 13:46] LABS: Bilirubin Urine 1+ (Negative); Blood Urine 2+ (Negative); Glucose Urine UA 1+ (Normal); Ketones Urine Trace (Negative); Leukocyte Esterase Urine Trace (Negative); Nitrate Urine Negative (Negative); Protein Urine 2+ (Negative); Specific Gravity, Urine 1.027 (1.005-1.030); Urine Appearance Cloudy (CLEAR); pH Urine 5.5 (5-7)
[2024-08-30 13:50] LABS: UA Manual Slide Review YES; Urine Color Orange (Yellow)
[2024-08-30 13:59] LABS: Troponin(5th) Baseline 26 ng/L (0-10)
[2024-08-30 14:01] LABS: Add Urine Culture? No; Add Urine Microscopic? YES; Amorphous Sediment Urine 2+ /hpf; Bacteria Urine 1+ /hpf; RBC Urine 0-4 /hpf (0-2); WBC Urine 0-4 /hpf (0-5)
--- NOTE | 2024-08-30 14:03 | P.HP_ITS ---
Providers/Chief Complaint 2 Primary Care Provider: Arnoldo Avalos MD Chief Complaint: fatigue, not drinking or eating vomitting History of Present Illness Pleasant 69-year-old lady with history of rheumatoid arthritis on chronic steroid, diabetes, HLD, HTN, has not been feeling well starting at the later part of this week, including having malaise, body aches, headache, nausea, vomiting, productive cough with purulent appearing sputum with small amount of blood in it, has been too weak to try to get out from her bed. In ER she is afebrile, with leukocytosis 38.57, predominantly neutrophilic 32.41. Hyponatremia 131, potassium 3.4. With CK elevated 919. Procalcitonin 2.78. Chest x-ray with imaging findings concerning for multifocal pneumonia. Review of Systems 2 Const: Reports: chills, body aches, change in appetite, fatigue and malaise; Denies: fever(s) ENMT: Denies: throat pain, oral sores or ear or mastoid pain Card: Denies: chest pain, edema, pre-syncope or dyspnea on exertion Resp: Reports: dyspnea, productive cough and change in phlegm color GI: Denies: abdominal pain, nausea, vomiting, diarrhea, constipation, hematochezia or melena : Denies: flank pain, urinary frequency or hematuria Musc: Denies: back pain, joint swelling or joint redness Skin/Breast: Denies: rash or new lesions Neuro: Reports: headache(s) Medications/Allergies Home Medications Medication Instructions Recorded Confirmed Last Taken Type atorvastatin 80 mg tablet (Lipitor) 80 mg PO DAILY 04/12/20 10/16/23 Unknown History empagliflozin 10 mg tablet 10 mg PO DAILY 04/12/20 10/16/23 Unknown History (Jardiance) ezetimibe 10 mg tablet (Zetia) 10 mg PO DAILY 04/12/20 10/16/23 Unknown History fluoxetine 40 mg capsule (Prozac) 40 mg PO DAILY 04/12/20 10/16/23 Unknown History glipizide 10 mg tablet 10 mg PO DAILY 04/12/20 10/16/23 Unknown History lisinopril 40 mg tablet 40 mg PO DAILY 04/12/20 10/16/23 Unknown History lorazepam 0.5 mg tablet 0.5 mg PO DAILY PRN 04/12/20 10/16/23 Unknown History sitagliptin phos 100 mg-metformin 1 tab PO DAILY 04/12/20 10/16/23 Unknown History ER 1,000 mg tablet,extend rel 24h mp (Janumet XR) insulin degludec [Tresiba SUBCUT 04/13/20 10/16/23 Unknown History FlexTouch U-100] pantoprazole 40 mg tablet,delayed 40 mg PO DAILY #30 tabs 01/11/21 10/16/23 Unknown Rx release prednisone 5 mg tablet 5 mg PO DAILY #60 tabs 08/14/22 10/16/23 Unknown Rx diclofenac sodium 1 % topical gel 4 g topical QID #100 grams 02/19/23 10/16/23 Unknown Rx amlodipine 5 mg tablet 5 mg PO DAILY #30 tabs 03/13/23 10/16/23 Unknown Rx metoprolol succinate 25 mg 12.5 mg (1/2 x 25 mg) PO DAILY #15 03/13/23 10/16/23 Unknown Rx tablet,extended release 24 hr tabs (Toprol XL) adalimumab 40 mg/0.8 mL 40 mg (0.8 mL) SUBCUT Q14D #2 ea 10/16/23 10/16/23 Unknown Rx subcutaneous pen kit (Humira Pen) folic acid 1 mg tablet 1 mg PO DAILY #90 tabs 10/16/23 10/16/23 Unknown Rx methotrexate sodium 2.5 mg tablet See Rx Instructions PO Q7D #40 tabs 10/16/23 10/16/23 Unknown Rx Allergies Allergy/AdvReac Type Severity Reaction Status Date / Time aspirin Allergy ADR-Nausea Verified 02/08/24 21:44 codeine Allergy Unknown Verified 02/08/24 21:44 penicillin G AdvReac Intermediate ADR-Headach Unverified 08/30/24 13:55 e PFSH Acute 2 PFSH: Medical History Chronic steroid use Seronegative rheumatoid arthritis of both hands Hammertoes of both feet Foot callus Diabetes mellitus High risk medication use Immunization counseling Seropositive rheumatoid arthritis Surgical History No pertinent past surgical history Family History Other Arthritis Cancer Heart disease Stroke Social History Smoking and tobacco/nicotine status: never used tobacco/nicotine Alcohol intake: never Vitals/I&O/Wt Last Vital Signs Temp 98.8 F 08/30/24 10:18 Pulse 77 08/30/24 12:32 Resp 18 08/30/24 10:18 BP 143/86 08/30/24 12:32 Pulse Ox 98 08/30/24 12:32 O2 Del Method Room Air 08/30/24 10:18 08/29/24 08/30/24 08/30/24 22:59 06:59 14:59 Intake Total 1000 / 1000 Balance 1000 / 1000 Weight last 48 hrs Weight 72.575 kg Physical Exam 2 Narrative: Accompanied by family Const: COMMON NORMALS: patient oriented x3 and alert GENERAL APPEARANCE: c ooperative ORIENTATION/CONSCIOUSNESS: Yes awake HENMT: COMMON NORMALS: oropharynx normal Neck/C-Spine: COMMON NORMALS: no JVD Resp: OTHER: Coarse Cardio: COMMON NORMALS: no JVD, regular rhythm, S1 normal heart sound present, S2 normal heart sound present and No murmurs present (Cardio) RHYTHM: regular rhythm HEART SOUNDS: S1 normal heart sound present and S2 normal heart sound present GI: COMMON NORMALS: Normal to inspection, nondistended, normoactive bowel sounds present, Soft to palpation and non-tender PALPATION: Yes Soft to palpation Extremity: COMMON NORMALS: no joint enlargement and no pedal edema Neuro: COMMON NORMALS: patient oriented x3 and moves all extremities S ENSORIUM/ORIENTATION: Yes alert Skin: COMMON NORMALS: no rashes or lesions noted GENERAL SKIN EXAM: no rashes or lesions noted Data 08/30/24 11:12 08/30/24 10:49 Micro: Microbiology 08/30/24 12:09 Blood Culture - Preliminary Blood SPECIMEN COLLECTED 08/30/24 12:05 Blood Culture - Preliminary Blood SPECIMEN COLLECTED A&P Assessment and plan (1) Community acquired pneumonia: Immunocompromised lady with rheumatoid arthritis on chronic steroid with rapid decline in health over the last several days with generalized weakness, has been too weak to get out of bed, with severe leukocytosis 38.57, predominant neutrophilic 32.41, with hyponatremia 131, rhabdomyolysis 919, procalcitonin elevated at 2.78. Multifocal pneumonia on chest x-ray. Likely not mounting adequate immune response. Concern for risk of progression to life-threatening sepsis, septic shock. Lactic acid reviewed 1.5. Reviewed vitals, CBC, CMP, magnesium, CK, lipase, procalcitonin, UA, respiratory viral panel, chest x-ray, ED provider note, discussed with ED provider. Viral panel is negative. First dose antibiotic ordered in ER, Zosyyasmin, although she does report headache with past penicillin use, for now we will continue with Levaquin. Obtain sputum cultures, urine bacterial antigens, urine Legionella antigen, MRSA PCR. Monitor oxygenation. With chronic steroid use at risk of adrenal insufficiency, will increase steroid at current time continue prednisone at 10 mg daily. (2) Gastroenteritis: With nausea vomiting and diarrhea. Will check C. difficile. Reviewed COVID-19, influenza, RSV PCR, negative. Bowel rest for now with clear liquid diet as tolerating. Antiemetic as needed. Protonix. (3) Dehydration: Received fluid bolus, continue IV fluid infusion with LR due to ongoing gastroenteritis, nausea vomiting, diarrhea, dehydration with rhabdomyolysis. Monitor for risk of fluid overload. Reassess status, chemistry, CK. (4) Rhabdomyolysis: Reviewed CK, 919, with dehydration, on high-dose statin 80 mg. Hold statin for now. Fluid resuscitation, IV LR, monitor volume status. Recheck CK Additionally assess troponin, EKG series for any ischemia. Troponin with minimal elevation, EKG on my interpretation with sinus rhythm, possible Q waves in V1, V2, pending official read. Qualifiers: Rhabdomyolysis type: non-traumatic Qualified Code(s): M62.82 - Rhabdomyolysis (5) Multifocal pneumonia: In the setting of immunocompromise. As above. (6) Generalized weakness: Generally weak secondary to pneumonia, dehydration, rhabdomyolysis, with physical deconditioning, has not gotten out of bed in several days. Additional treatment of underlying etiologies as above. PT assessment. Case management consultation. (7) Seropositive rheumatoid arthritis: On chronic prednisone. Increase prednisone dose to 10 mg for now. Monitor for risk of adrenal insufficiency. (8) Diabetes mellitus: So far without oral intake. Insulin sliding scale, monitor POC glucose. (9) Chronic steroid use: Increase prednisone dose to 10 mg for now while in acute illness. Resume usual dose with convalescence. Plan Hemoptysis: Per history obtained from her family thick purulent appearing sputum with some blood in there. Monitor for any worsening of hemoptysis. Discontinue Lovenox VTE prophylaxis in case of any worsening. Attestations 2 Medical Necessity Statement*: Admission of over 2 midnights anticipated for assessment and management of multifocal pneumonia, gastroenteritis in a lady with dehydration, rhabdomyolysis, with underlying immunocompromise with rheumatoid arthritis on chronic steroid and diabetes. Diagnoses Community acquired pneumonia J18.9 Gastroenteritis K52.9 Dehydration E86.0 Rhabdomyolysis M62.82 Rhabdomyolysis type: non-traumatic Multifocal pneumonia J18.9 Generalized weakness R53.1 Seropositive rheumatoid arthritis M05.9 Diabetes mellitus E11.9 Chronic steroid use
[2024-08-30 14:34] VITALS: PULSE 71; O2SAT 98
[2024-08-30 14:41] VITALS: BP 143/87; PULSE 72; O2SAT 98
--- NOTE | 2024-08-30 15:22 | ECG_ITS ---
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 Measurements Intervals [place] Rate: 77 P: 7 [place]: 179 QRS: 10 QRSD: 109 T: 49 QT: 397 QTc: 449 Interpretive Statements SINUS RHYTHM Compared to ECG 08/30/2024 13:27:19 Myocardial infarct finding no longer present Electronically Signed On 09-01-2024 01:06:40 CDT by Zuri Minaya M.D. [id number]
[2024-08-30 15:39] LABS: Troponin 5 2HR 28.68 ng/L (0-10); Troponin 5 2HR Delta 2.68 ABS# (0-10)
[2024-08-30 15:54] VITALS: BP 129/65; PULSE 89; RESP 17; TEMP 37.9; O2SAT 93
[2024-08-30] MEDS: lidocaine 1% 5 ML in potassium chloride premix 100 ML 52.5 ML IV (16:00)
[2024-08-30] MEDS: pantoprazole 40 mg SDV IVP (16:06)
[2024-08-30] MEDS: nicotine 21 mg Patch 1 PATCH TRANSDERMA (16:06)
[2024-08-30] MEDS: predniSONE 10 mg Tablet PO (16:06)
[2024-08-30] MEDS: enoxaparin 40 mg/0.4 mL Syringe SUBCUT (16:06)
[2024-08-30 16:55] LABS: Glucose Point of Care 265 mg/dL (70-110)
[2024-08-30] MEDS: lactated ringers 1,000 ML 100 ML IV (16:57)
[2024-08-30] MEDS: levofloxacin-dextrose 5 % 750 MG/150 ML PREMIX 100 MG IV (16:57)
[2024-08-30] MEDS: insulin lispro 100 unit/1 mL SUBCUT ×2 (17:04→21:59)
--- NOTE | 2024-08-30 19:22 | ECG_ITS ---
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 Measurements Intervals [place] Rate: 59 P: 3 [place]: 177 QRS: 9 QRSD: 97 T: 49 QT: 450 QTc: 447 Interpretive Statements SINUS BRADYCARDIA SEPTAL MYOCARDIAL INFARCTION , OF INDETERMINATE AGE [40+ ms Q WAVE IN V1/V2] Compared to ECG 08/30/2024 16:07:52 Myocardial infarct finding now present Sinus rhythm no longer present Electronically Signed On 09-01-2024 01:06:44 CDT by Zuri Minaya M.D. [id number]
[2024-08-30 19:39] LABS: Troponin 5 6HR 29.17 ng/L (0-10); Troponin 5 6HR Delta 3.17 ng/L (0-12)
[2024-08-30 19:58] VITALS: BP 134/67; PULSE 70; RESP 18; TEMP 36.8; O2SAT 90
[2024-08-30 20:42] LABS: MRSA PCR OZH (swab) NOT DETECTED (Not Detecte)
[2024-08-30 20:48] LABS: Glucose Point of Care 146 mg/dL (70-110)
[2024-08-31] VITALS (10 sets, daily range): BP systolic 103–152; BP diastolic 51–80; PULSE 53–86; RESP 16–20; TEMP 36.4–36.7; O2SAT 90–92
[2024-08-31] MEDS: lactated ringers 1,000 ML 100 ML IV ×2 (03:37→12:14)
[2024-08-31 06:02] LABS: Basophils # 0.1 10^3/uL (0.0-0.1); Basophils % 0.2 %; Eosinophils % 0.1 %; Hematocrit 30.7 % (36-47); Lymphocytes % 10.7 %; Mean Corpuscular HGB Conc 33.6 g/dL (30-55); Mean Corpuscular Hemoglobin 32.4 pg (27-33); Mean Corpuscular Volume 96.5 fl (85-98); Mean Platelet Volume 10.4 fL (7.4-10.4); Monocytes # 1.3 10^3/uL (0.2-0.9); Monocytes % 4.6 %; Neutrophils # 23.42 10^3/uL (1.8-7.7); Neutrophils % 83.4 %; Nucleated Red Blood Cells % 0 %; Platelet Count 235 10^3/cmm (157-399); Red Blood Count 3.18 10^6/uL (3.85-5.65); Red Cell Distribution Width 14.5 % (12.1-15.1)
[2024-08-31 06:16] LABS: Alanine Aminotransferase 16 U/L (0-33); Albumin Level 2.9 g/dL (3.5-5.2); Alkaline Phosphatase 117 U/L (35-105); Blood Urea Nitrogen 11 mg/dL (8-23); Calcium 8.3 mg/dL (8.5-10.5); Carbon Dioxide 26 mmol/L (22-29); Chloride 102 mmol/L (98-107); Creatinine Clr Calc Pharmacy 72.0881; Globulin 2.8 g/dL (1.3-4.6); Glomerular Filtration Rate 122.3 mL/min (90-130); Glucose 168 mg/dL (65-115); Magnesium 1.9 mg/dL (1.7-2.3); Osmolality Calculated 285 mOsm/kg (285-295); Sodium 136 mmol/L (136-145); Total Bilirubin 0.5 mg/dL (0.15-1.2); Total Protein 5.7 g/dL (6.6-8.7)
[2024-08-31 06:23] LABS: Glucose Point of Care 213 mg/dL (70-110)
[2024-08-31 06:32] LABS: Creatine Phosphokinase 987 U/L (26-192)
[2024-08-31 06:34] LABS: Anion Gap 11.7 (5-19); Aspartate Amino Transferase 28 U/L (0-32); Potassium 3.7 mmol/L (3.5-5.1)
--- NOTE | 2024-08-31 08:20 | PC.PHAR ---
patient stated she isnt on nearly 1/2 of the list that we had, the fill dates on it were a couple years old so that may be true. main ones that were taken off was jardiance she said that glipizide took its place and no janumet either, removed tresiba. florencia is current but patient states she isnt in pain so hasnt been filling it... I did call [facility] and confirm fill dates on everything
[2024-08-31] MEDS: predniSONE 10 mg Tablet PO (09:17)
[2024-08-31] MEDS: pantoprazole 40 mg SDV IVP (09:18)
[2024-08-31] MEDS: insulin lispro 100 unit/1 mL SUBCUT ×4 (09:20→20:56)
[2024-08-31] MEDS: insulin glargine 100 units/1 mL 5 UNIT SUBCUT (09:21)
[2024-08-31 11:19] LABS: Glucose Point of Care 194 mg/dL (70-110)
--- NOTE | 2024-08-31 12:51 | CTR_ITS ---
PROCEDURE INFORMATION: Exam: CTA Chest With Contrast Exam date and time: 08/31/2024 6:42 PM Age: 69 years old Clinical indication: Shortness of breath; Additional info: Assess for pe TECHNIQUE: Imaging protocol: Computed tomographic angiography of the chest with contrast. Exam focused on the arteries. 3D rendering (Not supervised by radiologist): MIP and/or 3D reconstructed images were created by the technologist. Radiation optimization: All CT scans at this facility use at least one of these dose optimization techniques: automated exposure control; mA and/or kV adjustment per patient size (includes targeted exams where dose is matched to clinical indication); or iterative reconstruction. Contrast material: OMNI 350; Contrast volume: 80 ml; Contrast route: INTRAVENOUS (IV); COMPARISON: CT angio chest PE protcl [id number] 03/13/2023 6:46 AM RADIATION DOSE METRICS: Total DLP (mGy-cm): 379.05 FINDINGS: Pulmonary arteries: Normal. No pulmonary emboli. Aorta: Unremarkable. No aortic aneurysm. No aortic dissection. Lungs: There is an area of dense consolidation involving the right middle lobe. In addition, patchy infiltrates involve both lower lobes. There is prominent bronchial wall thickening and mucous plugging involving both lung bases. Pleural spaces: Tiny pleural effusions are noted bilaterally. Heart: Unremarkable. No cardiomegaly. No pericardial effusion. Lymph nodes: Unremarkable. No enlarged lymph nodes. Bones/joints: Unremarkable. No acute fracture. Soft tissues: Unremarkable. CT/CT angio chest PE protcl [id number] IMPRESSION: Bilateral pneumonia
[2024-08-31] MEDS: piperacillin-tazobactam 3.375 GM in sodium chloride 0.9% (plus) 50 ML IV ×2 (13:43→20:57)
--- NOTE | 2024-08-31 14:26 | P.PN_ITS ---
Subjective 2 Subjective: H&P reviewed. Leukocytosis trending down, however continues to be at 28,000. Patient reports that her symptoms started with URI type symptoms 1 week ago. She thought she had sinusitis if she was taking [id number] antiallergy medications at home. Symptoms continued to progress with development of productive cough over the next week. She lives on the same property as her son there is a daycare onsite. She has occasional contact with preschool-aged children. She has been on Humira previously, has not taken it since May since she did not feel she needed it anymore. Joints have not flared in quite some time. Noted to be bradycardic today with heart rate ranging in the 50s. This appears to be new compared to previously. She is currently on methotrexate 2.5 mg p.o. daily. States she has not taken any steroids in several months, previously has only used steroids with acute flares. Medications: Reviewed: Yes Vitals/I&O/Wt Last Vital Signs Temp 97.7 F 08/31/24 11:38 Pulse 56 L 08/31/24 11:38 Resp 18 08/31/24 11:38 BP 146/80 08/31/24 11:38 Pulse Ox 91 08/31/24 11:38 O2 Del Method Room Air 08/31/24 11:38 08/30/24 08/31/24 08/31/24 22:59 06:59 14:59 Intake Total 375 / 1425 1480 / 2905 1101.667 / 1101.667 Output Total 900 / 900 500 / 500 Balance -525 / 525 1479 601.667 / 601.667 Weight last 48 hrs Weight 76.158 kg Weight 72.575 kg Physical Exam 2 Narrative: General: No acute distress, AO x3, mildly tachypneic in conversation HEENT: PERRLA, pupils bilaterally equal and reactive, pallors not present Chest: Normal vesicular breath sounds, no added sounds, equal good air entry bilaterally CVS: S1-S2 regular, no murmurs, no tachycardia, no gallops, no rubs Abdomen: Soft, nontender, no organomegaly, bowel sounds present Neuro: No focal deficits, no facial deformity, AO x3, power 5/5 in all limbs Data 08/31/24 04:51 08/31/24 04:51 Micro: Microbiology 08/30/24 12:09 Blood Culture - Preliminary Blood NEGATIVE TO DATE 08/30/24 12:05 Blood Culture - Preliminary Blood NEGATIVE TO DATE 08/30/24 19:02 Legionella Urinary Antigen - Final Urine,Voided Bacterial Antigens - Final A&P Assessment and plan (1) Community acquired pneumonia: Immunocompromised lady with rheumatoid arthritis on chronic steroid with rapid decline in health over the last several days with generalized weakness, has been too weak to get out of bed, with severe leukocytosis 38.57, predominant neutrophilic 32.41, with hyponatremia 131, rhabdomyolysis 919, procalcitonin elevated at 2.78. Multifocal pneumonia on chest x-ray. Likely not mounting adequate immune response. Concern for risk of progression to life-threatening sepsis, septic shock. Lactic acid reviewed 1.5. Reviewed vitals, CBC, CMP, magnesium, CK, lipase, procalcitonin, UA, respiratory viral panel, chest x-ray, ED provider note, discussed with ED provider. Viral panel is negative. First dose antibiotic ordered in ER, Melinda, although she does report headache with past penicillin use, for now we will continue with Levaquin. Obtain sputum cultures, urine bacterial antigens, urine Legionella antigen, MRSA PCR. Monitor oxygenation. With chronic steroid use at risk of adrenal insufficiency, will increase steroid at current time continue prednisone at 10 mg daily. (2) Gastroenteritis: With nausea vomiting and diarrhea. Will check C. difficile. Reviewed COVID-19, influenza, RSV PCR, negative. Bowel rest for now with clear liquid diet as tolerating. Antiemetic as needed. Protonix. (3) Dehydration: Received fluid bolus, continue IV fluid infusion with LR due to ongoing gastroenteritis, nausea vomiting, diarrhea, dehydration with rhabdomyolysis. Monitor for risk of fluid overload. Reassess status, chemistry, CK. (4) Rhabdomyolysis: Reviewed CK, 919, with dehydration, on high-dose statin 80 mg. Hold statin for now. Fluid resuscitation, IV LR, monitor volume status. Recheck CK Additionally assess troponin, EKG series for any ischemia. Troponin with minimal elevation, EKG on my interpretation with sinus rhythm, possible Q waves in V1, V2, pending official read. Qualifiers: Rhabdomyolysis type: non-traumatic Qualified Code(s): M62.82 - Rhabdomyolysis (5) Multifocal pneumonia: In the setting of immunocompromise. As above. (6) Generalized weakness: Generally weak secondary to pneumonia, dehydration, rhabdomyolysis, with physical deconditioning, has not gotten out of bed in several days. Additional treatment of underlying etiologies as above. PT assessment. Case management consultation. (7) Seropositive rheumatoid arthritis: On chronic prednisone. Increase prednisone dose to 10 mg for now. Monitor for risk of adrenal insufficiency. (8) Diabetes mellitus: So far without oral intake. Insulin sliding scale, monitor POC glucose. (9) Chronic steroid use: Increase prednisone dose to 10 mg for now while in acute illness. Resume usual dose with convalescence. Plan Hemoptysis: Per history obtained from her family thick purulent appearing sputum with some blood in there. Monitor for any worsening of hemoptysis. Discontinue Lovenox VTE prophylaxis in case of any worsening. Plan for today August 31, 2024. CBC count is improving from 38,000-28,000 today. Urine bacterial and Legionella antigens are negative. Diarrhea is currently resolved. Given that patient had some blood-streaked sputum, new hypoxia, mildly elevated troponins, would want to exclude PE as a possible cause of her symptoms. Chest x-ray is showing bilateral infiltrates. CT would help better characterize these infiltrates. CTA of the chest has been ordered to evaluate for PE. Troponin series 26--> 28-->29 , Delta not significant at 2 hours and 6 hrs. CK continues to be elevated at 987. Patient is immunocompromised by way of being on Humira. Immunocompromising effect can last up to 6 months or more. Given that patient is immunocompromised by virtue of being on Humira and methotrexate would need to include evaluation for opportunistic pneumonia as a cause of her symptoms especially given bilateral presentation. Her last QuantiFERON screen dates back to 2019 at which time it was negative. Will add sputum AFB culture and MTB PCR x 3 on induce sputum, pneumocystis PCR on induce sputum, serum beta glucan, serum galactomannan, serum cryptococcal antigen, sputum culture is already sent and currently being evaluated. Additionally will add serology for Coccidioides, urine histoplasma antigen. Start piperacillin/tazobactam to keep beta-lactam coverage, levofloxacin to continue for atypical coverage, changed from IV to oral if patient able to tolerate oral intake today. Isolation precautions while undergoing TB rule out. Attestations 2 Medical Necessity Statement*: Immunocompromised patient presenting with bilateral pneumonia, needs further evaluation for community-acquired versus opportunistic pneumonia. Continued need for IV antibiotics, IV fluids for rhabdomyolysis. Coding Level of Care Code Acute Code for [facility] Diagnoses Community acquired pneumonia J18.9 Gastroenteritis K52.9 Dehydration E86.0 Rhabdomyolysis M62.82 Rhabdomyolysis type: non-traumatic Multifocal pneumonia J18.9 Generalized weakness R53.1 Seropositive rheumatoid arthritis M05.9 Diabetes mellitus E11.9 Chronic steroid use
[2024-08-31] MEDS: nicotine 21 mg Patch 1 PATCH TRANSDERMA (15:22)
[2024-08-31] MEDS: enoxaparin 40 mg/0.4 mL Syringe SUBCUT (15:22)
[2024-08-31] MEDS: sodium chloride 3.5% neb 4 mL Neb INHALATION ×2 (15:41→20:43)
[2024-08-31 15:57] LABS: Glucose Point of Care 281 mg/dL (70-110)
[2024-08-31] MEDS: iohexol 350 mg/mL 500 mL Btl (per mL) IV (19:05)
[2024-08-31] MEDS: albuterol 2.5 mg/3 mL Neb INHALATION (20:43)
[2024-08-31 21:07] LABS: Glucose Point of Care 232 mg/dL (70-110)
[2024-09-01] VITALS (11 sets, daily range): BP systolic 135–180; BP diastolic 58–82; PULSE 50–80; RESP 16–20; TEMP 36.4–36.9; O2SAT 79–94
[2024-09-01] MEDS: piperacillin-tazobactam 3.375 GM in sodium chloride 0.9% (plus) 50 ML IV ×2 (04:23→12:17)
[2024-09-01 06:29] LABS: Glucose Point of Care 168 mg/dL (70-110)
[2024-09-01 06:30] LABS: Basophils # 0.1 10^3/uL (0.0-0.1); Basophils % 0.5 %; Eosinophils # 0.1 10^3/uL (0.0-0.8); Eosinophils % 0.5 %; Hematocrit 31.6 % (36-47); Lymphocytes # 4.1 10^3/uL (0.8-4.8); Lymphocytes % 33.8 %; Mean Corpuscular HGB Conc 33.5 g/dL (30-55); Mean Corpuscular Hemoglobin 32.3 pg (27-33); Mean Corpuscular Volume 96.3 fl (85-98); Mean Platelet Volume 10.4 fL (7.4-10.4); Monocytes # 0.7 10^3/uL (0.2-0.9); Monocytes % 5.8 %; Neutrophils # 6.94 10^3/uL (1.8-7.7); Neutrophils % 57.6 %; Nucleated Red Blood Cells % 0 %; Platelet Count 280 10^3/cmm (157-399); Red Blood Count 3.28 10^6/uL (3.85-5.65); Red Cell Distribution Width 14.5 % (12.1-15.1); White Blood Count 12.05 10^3/uL (3.29-11.43)
[2024-09-01 06:57] LABS: Alanine Aminotransferase 21 U/L (0-33); Albumin Level 3.2 g/dL (3.5-5.2); Alkaline Phosphatase 101 U/L (35-105); Anion Gap 13.5 (5-19); Aspartate Amino Transferase 36 U/L (0-32); Blood Urea Nitrogen 12 mg/dL (8-23); Calcium 8.2 mg/dL (8.5-10.5); Carbon Dioxide 26 mmol/L (22-29); Chloride 105 mmol/L (98-107); Creatinine Clr Calc Pharmacy 72.6203; Globulin 2.3 g/dL (1.3-4.6); Glomerular Filtration Rate 122.3 mL/min (90-130); Glucose 166 mg/dL (65-115); Osmolality Calculated 296 mOsm/kg (285-295); Potassium 3.5 mmol/L (3.5-5.1); Sodium 141 mmol/L (136-145); Total Bilirubin 0.2 mg/dL (0.15-1.2); Total Protein 5.5 g/dL (6.6-8.7)
[2024-09-01 07:08] LABS: Slide Review Slide Review Perform
[2024-09-01] MEDS: insulin glargine 100 units/1 mL 5 UNIT SUBCUT (08:45)
[2024-09-01] MEDS: lisinopril 20 mg Tablet 40 MG PO (08:46)
[2024-09-01] MEDS: pantoprazole 40 mg SDV IVP (08:46)
[2024-09-01] MEDS: levoFLOXacin 750 mg Tablet PO (08:46)
[2024-09-01] MEDS: predniSONE 10 mg Tablet PO (08:46)
[2024-09-01] MEDS: insulin lispro 100 unit/1 mL SUBCUT ×2 (08:47→12:16)
[2024-09-01 11:23] LABS: Glucose Point of Care 258 mg/dL (70-110)
--- NOTE | 2024-09-01 12:08 | ECG_ITS ---
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 Measurements Intervals [place] Rate: 64 P: 29 [place]: 189 QRS: -11 QRSD: 100 T: 28 QT: 408 QTc: 423 Interpretive Statements SINUS RHYTHM Compared to ECG 08/30/2024 22:06:36 Sinus bradycardia no longer present Electronically Signed On 09-01-2024 16:50:42 CDT by Con Jenkins M.D. [id number]
[2024-09-01] MEDS: hyDRALAzine 20 mg/mL INJ 1 mL 5 MG IVP ×2 (12:51→14:45)
[2024-09-01 13:32] LABS: Creatine Phosphokinase 789 U/L (26-192)
[2024-09-01] MEDS: nicotine 21 mg Patch 1 PATCH TRANSDERMA (14:10)
[2024-09-01] MEDS: enoxaparin 40 mg/0.4 mL Syringe SUBCUT (14:10)
--- NOTE | 2024-09-01 14:59 | P.DS_ITS ---
Discharge Providers Date of Admission: 08/30/24 13:23 Date of Discharge: September 01, 2024 Attending Provider at Admission: Israel Onofre Attending Provider at Discharge: Bella Mcclelland MD Primary Care Provider: Arnoldo Avalos MD Diagnoses at Discharge Discharge Diagnosis (1) Community acquired pneumonia: Status: Acute (2) Gastroenteritis: Status: Acute (3) Dehydration: Status: Acute (4) Rhabdomyolysis: Status: Acute Qualifiers: Rhabdomyolysis type: non-traumatic Qualified Code(s): M62.82 - Rhabdomyolysis (5) Multifocal pneumonia: Status: Acute (6) Generalized weakness: Status: Acute (7) Seropositive rheumatoid arthritis: Status: Acute (8) Diabetes mellitus: Status: Acute (9) Chronic steroid use: Status: Acute Reason for Visit Reason for Visit: fatigue, not drinking or eating vomitting Hospital Course Hospital Course 69-year-old lady who was admitted to the hospital with 1 week of initial symptoms of runny nose cough and sinus congestion which later progressed to cough and expectoration. Patient had subjective fever with chills. She developed multiple episodes of vomiting to the point of not being able to tolerate any p.o. intake and had multiple episodes of diarrhea. She presented to the emergency room with the symptoms. She was found to have bilateral pneumonia on her chest x-ray. Of note patient has a history of rheumatoid arthritis for which she was on Humira until May of this year. Patient is also on methotrexate at her baseline. Given her immunocompromise and bilateral pneumonia with need for supplemental oxygen upon admission she was admitted to the hospital. Her white blood cell count was at 38,000. She had evidence of rhabdomyolysis with CPK ~900, likely from dehydration. She started treatment with IV piperacillin/tazobactam and levofloxacin in the hospital. With this treatment she became afebrile. She is saturating 92% on room air today. WBC count has improved from 38,000-12,000 today. CTA of the chest was done to evaluate for PE given mildly elevated troponins in the 20s range but flat without significant delta. It was negative for PE. Redemonstrated was a bilateral pneumonia. Given that patient is immunocompr omised with a history of being on Humira, opportunistic pneumonia evaluation was being performed. Patient did well with the treatment provided and is being discharged today in a stable/improved condition with recommendations to complete oral Augmentin and levofloxacin for 7-day course as outpatient. Currently pending tests include sputum Gram stain and culture, MTB PCR, AFB culture, urine histoplasma antigen, serum Coccidioides serology, pneumocystis PCR, serum Fungitell and Aspergillus galactomannan. Since patient is otherwise clinically improved, favor community-acquired bacterial pneumonia to be the most likely cause. Will follow-up pending tests post patient discharge and call her with any abnormal results. Blood culture thus far negative to date. Incidentally noted to have sinus bradycardia with heart rate ranging between 53 to 66 bpm. No complaints of dizziness chest pain or dyspnea. EKG shows sinus bradycardia This documentation was created by [employer] dentofacial orthopedics dentist software. Every effort was made to ensure accuracy of dentofacial orthopedics dentist. Any obvious errors or omissions should be clarified with the author of the document. Physical Exam Narrative: General: No acute distress, AO x3 HEENT: PERRLA, pupils bilaterally equal and reactive, pallors not present Chest: Normal vesicular breath sounds, no added sounds, equal good air entry bilaterally CVS: S1-S2 regular, no murmurs, no tachycardia, no gallops, no rubs Abdomen: Soft, nontender, no organomegaly, bowel sounds present Neuro: No focal deficits, no facial deformity, AO x3, power 5/5 in all limbs Discharge Data Studies Completed and Pending Completed Studies During Hospitalization Category Date Time Status CTA PE [CT angio chest PE protcl [id number]] Routine Cat Scan 08/31/24 12:51 Completed XR chest 1V portable [id number] Stat Exams 08/30/24 11:23 Completed Pending at discharge Category Date Time Status AFB [Mycobacteria, Culture w/Fluor] Q8H Lab 08/31/24 12:51 Uncollected AFB [Mycobacteria, Culture w/Fluor] Q8H Lab 08/31/24 20:55 Received AFB [Mycobacteria, Culture w/Fluor] Q8H Lab 09/01/24 04:51 Uncollected Blood Culture Stat Lab 08/30/24 12:09 Results C.Diff PCR (Lab) Routine Lab 08/30/24 15:08 Uncollected Coccidioides AB CF Serum AM LABS Lab 09/01/24 05:18 Received Fungitell Glucan Assay (Blood) AM LABS Lab 09/01/24 05:18 Received GALACTOMANAN [Aspergillus AG,EIA,Serum] AM LABS Lab 09/01/24 05:18 Received Histoplasma Antibody Immunodif DAILY Lab 09/01/24 10:00 Received Histoplasma Quantitative AG Routine Lab 08/31/24 14:40 Received MTB Complex Rifampin PCR Q8H Lab 08/31/24 20:55 Received MTB Complex Rifampin PCR Q8H Lab 09/01/24 04:51 Ordered Pneumocystis jiroveci Qual PCR Routine Lab 08/31/24 20:55 Received Sputum Culture and Gram Stain Routine Lab 08/31/24 16:00 Results Radiology Impressions Chest X-Ray 08/30/24 11:23 IMPRESSION: Imaging findings concerning for multifocal pneumonia. Chest CTA 08/31/24 12:51 IMPRESSION: Bilateral pneumonia Laboratory Results WBC 12.05 10^3/uL (3.29-11.43) H 09/01/24 05:18 Corrected WBC Cancelled 08/30/24 10:49 RBC 3.28 10^6/uL (3.85-5.65) L 09/01/24 05:18 Hgb 10.60 g/dL (11.27-16.99) L 09/01/24 05:18 Hct 31.6 % (36-47) L 09/01/24 05:18 MCV 96.3 fl (85-98) 09/01/24 05:18 MCH 32.3 pg (27-33) 09/01/24 05:18 MCHC 33.5 g/dL (30-55) 09/01/24 05:18 RDW 14.5 % (12.1-15.1) 09/01/24 05:18 Plt Count 280 10^3/cmm (157-399) 09/01/24 05:18 MPV 10.4 fL (7.4-10.4) 09/01/24 05:18 Gran % Cancelled 08/30/24 10:49 Neut % (Auto) 57.6 % 09/01/24 05:18 Lymph % (Auto) 33.8 % 09/01/24 05:18 [place] % (Auto) 5.8 % 09/01/24 05:18 Eos % (Auto) 0.5 % 09/01/24 05:18 Baso % (Auto) 0.5 % 09/01/24 05:18 Neut # (Auto) 6.94 10^3/uL (1.8-7.7) 09/01/24 05:18 Lymph # (Auto) 4.1 10^3/uL (0.8-4.8) 09/01/24 05:18 [place] # (Auto) 0.7 10^3/uL (0.2-0.9) 09/01/24 05:18 Eos # (Auto) 0.1 10^3/uL (0.0-0.8) 09/01/24 05:18 Baso # (Auto) 0.1 10^3/uL (0.0-0.1) 09/01/24 05:18 Absolute Gran (auto) Cancelled 08/30/24 10:49 Nucleated RBC % (auto) 0 % 09/01/24 05:18 Nucleated RBCs # 0.0 /100WBC 09/01/24 05:18 Sodium 141 mmol/L (136-145) 09/01/24 05:18 Potassium 3.5 mmol/L (3.5-5.1) 09/01/24 05:18 Chloride 105 mmol/L (98-107) 09/01/24 05:18 Carbon Dioxide 26 mmol/L (22-29) 09/01/24 05:18 Anion Gap 13.5 (5-19) 09/01/24 05:18 BUN 12 mg/dL (8-23) 09/01/24 05:18 Creatinine 0.5 mg/dL (0.5-0.9) 09/01/24 05:18 GFR Calculation 122.3 mL/min (90-130) 09/01/24 05:18 Glucose 166 mg/dL (65-115) H 09/01/24 05:18 POC Glucose 258 mg/dL (70-110) H 09/01/24 11:17 Calculated Osmolality 296 mOsm/kg (285-295) H 09/01/24 05:18 Lactic Acid 1.5 mmol/L (0.5-2.2) 08/30/24 10:49 Calcium 8.2 mg/dL (8.5-10.5) L 09/01/24 05:18 Magnesium 1.9 mg/dL (1.7-2.3) 08/31/24 04:51 Total Bilirubin 0.2 mg/dL (0.15-1.2) 09/01/24 05:18 AST 36 U/L (0-32) H 09/01/24 05:18 ALT 21 U/L (0-33) 09/01/24 05:18 Alkaline Phosphatase 101 U/L (35-105) 09/01/24 05:18 Creatine Kinase 789 U/L (26-192) H* 09/01/24 05:18 Troponin T Baseline 26 ng/L (0-10) H 08/30/24 13:32 Troponin T 120 Minute 28.68 ng/L (0-10) H 08/30/24 15:11 Delta Troponin T 2.68 ABS# (0-10) 08/30/24 15:11 Troponin T Hi Sens 6Hr 29.17 ng/L (0-10) H 08/30/24 19:01 Troponin T Hi Sens 6Hr Delta 3.17 ng/L (0-12) 08/30/24 19:01 Total Protein 5.5 g/dL (6.6-8.7) L 09/01/24 05:18 Albumin 3.2 g/dL (3.5-5.2) L 09/01/24 05:18 Globulin 2.3 g/dL (1.3-4.6) 09/01/24 05:18 Lipase 10 U/L (13-60) L 08/30/24 10:49 Procalcitonin 2.78 ng/mL (0-0.5) H 08/30/24 10:49 Urine Color [place] (Yellow) A 08/30/24 12:51 Urine Appearance Cloudy (CLEAR) A 08/30/24 12:51 Urine pH 5.5 (5-7) 08/30/24 12:51 Ur Specific [place] 1.027 (1.005-1.030) 08/30/24 12:51 Urine Protein 2+ (Negative) A 08/30/24 12:51 Urine Glucose (UA) 1+ (Normal) H 08/30/24 12:51 Urine Ketones Trace (Negative) 08/30/24 12:51 Urine Blood 2+ (Negative) A 08/30/24 12:51 Urine Nitrate Negative (Negative) 08/30/24 12:51 Urine Bilirubin 1+ (Negative) H 08/30/24 12:51 Urine Urobilinogen 1.0 mg/dL (Negative) 08/30/24 12:51 Ur Leukocyte Esterase Trace (Negative) A 08/30/24 12:51 Urine RBC 0-4 /hpf (0-2) H 08/30/24 12:51 Urine WBC 0-4 /hpf (0-5) H 08/30/24 12:51 Ur Squamous Epith Cells 10-15 /hpf (0-5) H 08/30/24 12:51 Amorphous Sediment 2+ /hpf 08/30/24 12:51 Urine Bacteria 1+ /hpf (NONE) H 08/30/24 12:51 Nasal MRSA (PCR) Not detected (Not Detecte) 08/30/24 18:41 Coronavirus (PCR) Negative (Negative) 08/30/24 12:20 Influenza A (PCR) Negative (Negative) 08/30/24 12:20 Influenza Type B (PCR) Negative (Negative) 08/30/24 12:20 RSV (PCR) Negative (Negative) 08/30/24 12:20 Vitals Last Vital Signs Temp 97.8 F 09/01/24 12:01 Pulse 66 09/01/24 14:09 Resp 19 H 09/01/24 12:01 BP 167/69 09/01/24 14:09 Pulse Ox 92 09/01/24 12:31 O2 Del Method Room Air 09/01/24 12:31 Discharge Plan Discharge Patient Disposition: Home Condition: Stable Prescriptions: New amoxicillin-pot clavulanate 875-125 mg tablet 1 tab PO BID 7 Days Qty: 14 0RF levofloxacin 750 mg Tablet 750 mg PO DAILY 7 Days Qty: 7 0RF Continued glipizide 10 mg tablet 10 mg PO DAILY atorvastatin [Lipitor] 80 mg tablet 80 mg PO DAILY lorazepam 0.5 mg tablet 0.5 mg PO DAILY PRN (Reason: severe anxiety) pantoprazole 40 mg tablet,delayed release (DR/EC) 40 mg PO DAILY Qty: 30 3RF methotrexate sodium 2.5 mg tablet See Rx Instructions PO Q7D Qty: 40 3RF Hold Instructions: Doctor's Order Rx Instructions: Split dose...4 tabs in am and 4 tabs in pm on same day once a week. PO every 7 days; lisinopril 40 mg tablet 40 mg PO DAILY insulin glargine [Basaglar KwikPen U-100 Insulin] 100 unit/mL (3 mL) insulin pen 15 unit SUBCUT DAILY Discontinued Humira Pen 40 mg/0.8 mL pen injector kit 40 mg SUBCUT Q14D Qty: 2 3RF Rx Instructions: 340b Discharge Orders: Discharge Order (Routine); Ordered 09/01/24 Ordered By: Bella Mcclelland Referrals: Arnoldo Avalos MD [Primary Care Provider] - 09/08/24 9:15 am Discharge Diet: Usual diet Discharge Activity: Resume usual activity Patient Instructions: Opioid Safety Plan of Treatment: please take your Antibiotics as precribed. Please follow up with your PCP in one week, drink plenty of fluids over the next week Discharge Attestations Time Spent in Discharge Care*: greater than 30 min Quality Metrics Clinical Quality Measures [ No reported AMI, CVA or VTE this stay] Coding Level of Care Code Acute Code for g Fwd Diagnoses Community acquired pneumonia J18.9 Gastroenteritis K52.9 Dehydration E86.0 Rhabdomyolysis M62.82 Rhabdomyolysis type: non-traumatic Multifocal pneumonia J18.9 Generalized weakness R53.1 Seropositive rheumatoid arthritis M05.9 Diabetes mellitus E11.9 Chronic steroid use
[2024-09-01 15:56] LABS: Glucose Point of Care 519 mg/dL (70-110)
[2024-09-01 15:56] LABS: Glucose Point of Care 337 mg/dL (70-110)
[2024-09-04 18:05] LABS: Coccidioides AB CF Serum <1:2
[2024-09-05 01:14] LABS: Fungitell 1-3-B Glucan Assay <31 pg/ml; Interpretation Negative (Negative)
== END 2024-09-01 17:05 | disposition home or self-care (01) | DRG 194 ==
LOC: ER 13:42 → MEDSURG 14:22
PROVIDERS: Emergency Medicine; Admitting Provider Internal Medicine; Emergency Provider Emergency Medicine; PCP Family Medicine; Visit Provider Student in an Organized Health Care Education/Training Program
DX: J15.9 Unspecified bacterial pneumonia (principal); J44.0 Chronic obstructive pulmonary disease with (acute) lower respiratory infection; R04.2 Hemoptysis; M62.82 Rhabdomyolysis; K52.9 Noninfective gastroenteritis and colitis, unspecified; E86.0 Dehydration; R53.1 Weakness; M05.9 Rheumatoid arthritis with rheumatoid factor, unspecified; R00.1 Bradycardia, unspecified; Z79.84 Long term (current) use of oral hypoglycemic drugs; Z79.631 Long term (current) use of antimetabolite agent; Z79.4 Long term (current) use of insulin; I10 Essential (primary) hypertension; E78.5 Hyperlipidemia, unspecified; E11.9 Type 2 diabetes mellitus without complications; Z11.52 Encounter for screening for COVID-19; F17.200 Nicotine dependence, unspecified, uncomplicated; E87.6 Hypokalemia
CPT/HCPCS: 0241U; 36415; 36416; 71045; 71275; 80053; 81001; 82550; 82962; 83605; 83690; 83735; 84145; 84484; 85025; 86403; 86635; 86698; 87015; 87040; 87070; 87116; 87205; 87206; 87305; 87385; 87449; 87798; 87801; 93005; 94640; 94664; 96365; 96366; 96367; 96372; 96375; 97161; 99285; J0360; J1650; J1815; J1956; J2405; J2470; J2543; J3480; J7030; J7120; J7512; J7613

== ENCOUNTER 2024-12-05 12:08 | Emergency (ER) | payer MEDICARE, OTHER, SELFPAY ==
[2024-12-05] VITALS (16 sets, daily range): BP systolic 153–215; BP diastolic 65–109; PULSE 60–80; RESP 15–25; TEMP 36.6; O2SAT 85–93; BMI 24.0
--- NOTE | 2024-12-05 13:14 | XRR_ITS ---
PROCEDURE INFORMATION: Exam: XR Chest Exam date and time: 12/05/2024 6:22 PM Age: 69 years old Clinical indication: C/O general weakness TECHNIQUE: Imaging protocol: Radiologic exam of the chest. Views: 1 view. COMPARISON: CT angio chest PE protcl [id number] 08/31/2024 6:42 PM FINDINGS: Lungs: Unremarkable. No consolidation. Pleural spaces: Unremarkable. No pleural effusion. No pneumothorax. Heart/Mediastinum: Unremarkable. No cardiomegaly. Bones/joints: Unremarkable. XR/XR chest 1V portable [id number] IMPRESSION: No acute findings.
[2024-12-05 14:00] LABS: Basophils % 0.5 %; Eosinophils % 0.2 %; Hematocrit 40.3 % (36-47); Lymphocytes % 46.3 %; Mean Corpuscular HGB Conc 34.5 g/dL (30-55); Mean Corpuscular Hemoglobin 30.8 pg (27-33); Mean Corpuscular Volume 89.4 fl (85-98); Mean Platelet Volume 10.7 fL (7.4-10.4); Monocytes # 0.4 10^3/uL (0.2-0.9); Monocytes % 6.1 %; Neutrophils # 2.98 10^3/uL (1.8-7.7); Neutrophils % 46.6 %; Nucleated Red Blood Cells % 0 %; Platelet Count 260 10^3/cmm (157-399); Red Blood Count 4.51 10^6/uL (3.85-5.65); Red Cell Distribution Width 12.1 % (12.1-15.1); White Blood Count 6.39 10^3/uL (3.29-11.43)
[2024-12-05 14:24] LABS: Lactic Sepsis W/Reflex 2.2 mmol/L (0.5-2.2)
[2024-12-05 14:25] LABS: Troponin(5th) Baseline 20 ng/L (0-10)
[2024-12-05 14:27] LABS: Covid PCR NEGATIVE (Negative); Influenza A NEGATIVE (Negative); Influenza B NEGATIVE (Negative); Respiratory Syncytial Virus Ce NEGATIVE (Negative)
[2024-12-05 14:30] LABS: Alanine Aminotransferase 18 U/L (0-33); Albumin Level 4.1 g/dL (3.5-5.2); Alkaline Phosphatase 107 U/L (35-105); Anion Gap 16.5 (5-19); Aspartate Amino Transferase 13 U/L (0-32); Blood Urea Nitrogen 13 mg/dL (8-23); Calcium 10.3 mg/dL (8.5-10.5); Carbon Dioxide 26 mmol/L (22-29); Chloride 96 mmol/L (98-107); Creatinine Clr Calc Pharmacy 70.2063; Globulin 2.8 g/dL (1.3-4.6); Glomerular Filtration Rate 122.3 mL/min (90-130); Glucose 423 mg/dL (65-115); NT Pro B Type Natriuretic Pept 306 pg/mL (0-125); Osmolality Calculated 298 mOsm/kg (285-295); Potassium 3.5 mmol/L (3.5-5.1); Sodium 135 mmol/L (136-145); Total Bilirubin 0.4 mg/dL (0.15-1.2); Total Protein 6.9 g/dL (6.6-8.7)
[2024-12-05 15:43] LABS: Reflex Lactate Order REFLEX LACTIC ORDERD
--- NOTE | 2024-12-05 16:40 | ECG_ITS ---
[facility] Date: 2024-12-05 Pat Name: Palma Gonzalez Department: Room: Gender: Female Change Manager: : 1955 Requested By: Marcie Hernadnez Order Number: [id number] Reading MD: Measurements Intervals [place] Rate: 77 P: 12 NM: 172 QRS: -57 QRSD: 92 T: 69 QT: 405 QTc: 459 Interpretive Statements SINUS RHYTHM PATTERN CONSISTENT WITH PULMONARY DISEASE LEFT ANTERIOR FASCICULAR BLOCK [QRS AXIS <= -45, QR IN I, RS IN II] MODERATE ST DEPRESSION [0.05+ mV ST DEPRESSION] [email or web address]
[2024-12-05 17:40] LABS: Bilirubin Urine Negative (Negative); Blood Urine Negative (Negative); Glucose Urine UA 3+ (Normal); Ketones Urine Negative (Negative); Leukocyte Esterase Urine Negative (Negative); Nitrate Urine Negative (Negative); Protein Urine 1+ (Negative); Urine Appearance Clear (CLEAR); Urine Color Yellow (Yellow); Urobilinogen Urine 0.2 mg/dL (Negative)
[2024-12-05 17:45] LABS: Bacteria Urine None Seen /hpf; Hyaline Casts Urine 0-4 /lpf; RBC Urine 0-2 /hpf (0-2); Squamous Epithelial Cell Urine 0-5 /hpf (0-5); WBC Urine 0-5 /hpf (0-5)
[2024-12-05 17:48] LABS: Specific Gravity, Urine 1.034 (1.005-1.030)
--- NOTE | 2024-12-05 18:23 | PC.NURSE ---
Pt placed on 2L NC due to O2 saturations maintaining 87-88% on room air
--- NOTE | 2024-12-05 18:27 | W.ED.WEAKNES ---
Documented by User: [email or web address] Tanner 12/05/24 23:24 HPI - Weakness General: Chief complaint: Weakness Stated complaint: weakness/dizziness Time Seen by Provider: 12/05/24 18:19 History of Present Illness: Patient is a 69-year-old female with a history of rheumatoid arthritis, diabetes, hyperlipidemia, hypertension and GERD who presents to the emergency department with complaints of fatigue, malaise, shortness of breath. Patient reports diagnosed with influenza A 9 days ago. She has been at home with diarrhea and has done little other than laying in bed. She has not been eating and drinking very well and now she is unable to find a position of comfort in bed. She feels panic as if she cannot breathe. She is in no acute distress while here in the emergency department. At triage her oxygen saturation was around 8587 and we increased it to 90 with 2 L of oxygen. Associated symptoms: Reports chills; Denies chest pain, confusion, dysuria, easy bruising, fever(s), headache(s), nausea or vomiting Review of Systems General: Reports: 10 or more systems reviewed and unremarkable except in HPI and below Const: Reports: chills, body aches, change in appetite, fatigue and change in sleep pattern; Denies: fever(s), change in weight or malaise Eyes: Denies: change in vision, eye discomfort, eye discharge or eye redness ENMT: Denies: throat pain, enlarged tonsils, odynophagia, hoarseness, ear or mastoid pain, ear discharge, change in hearing, tinnitus, nasal discharge, nasal congestion, post nasal drip or sinus pain Card: Reports: lightheadedness, dyspnea on exertion and orthopnea; Denies: chest pain, palpitations, irregular heart rhythm, edema or leg pain with exertion Resp: Reports: dyspnea and non-productive cough; Denies: productive cough, wheezing, stridor or chest congestion GI: Reports: diarrhea; Denies: abdominal pain, nausea, vomiting, dysphagia, constipation, bloating, GI cramping or hematochezia : Denies: flank pain, difficulty voiding, dysuria, urinary frequency, urinary urgency, urinary hesitancy, oliguria or hematuria Musc: Denies: neck pain, back pain, extremity pain, joint pain, joint swelling, joint redness, joint warmth or muscle weakness Skin/Breast: Denies: rash, pruritus, erythema, photosensitivity or new lesions Neuro: Denies: headache(s), numbness in extremities, weakness in extremities, sensory changes, lack of coordination, difficulty walking, frequent falls, dizziness, confusion, Slurred speech present, difficulty communicating thoughts, seizure-like activity or involuntary movements Endo: Denies: polyuria, polydipsia or tired all the time [place]/Lymph: Denies: easy bruising or easy bleeding PFSH ED PFSH: Medical History Chronic steroid use Seronegative rheumatoid arthritis of both hands Hammertoes of both feet Foot callus Diabetes mellitus High risk medication use Immunization counseling Seropositive rheumatoid arthritis Surgical History No pertinent past surgical history Family History Other Arthritis Cancer Heart disease Stroke Social History Smoking and tobacco/nicotine status: never used tobacco/nicotine Alcohol intake: never Physical Exam Const: COMMON NORMALS: no acute distress, patient oriented x3 and alert GENERAL APPEARANCE: cooperative ORIENTATION/CONSCIOUSNESS: Yes awake, Yes oriented to person, Yes oriented to place and Yes oriented to time HENMT: COMMON NORMALS: normocephalic and atraumatic HEAD & SCALP: normocephalic and atraumatic FACE & SINUS: normal facial exam MOUTH: Normal oral and palatal mucosa present THROAT: posterior oropharynx normal Eye: COMMON NORMALS: Equal, round and reactive pupils present, EOMs intact bilaterally, conjunctivae normal and no scleral icterus GENERAL EYE: appearance normal, both eyes and all related structures ALIGNMENT: Yes alignment normal PERIORBITAL: periorbital findings normal CONJUNCTIVA: Yes conjunctivae normal PUPIL: Yes Equal, round and reactive pupils present Neck/C-Spine: COMMON NORMALS: full ROM GENERAL: Yes normal visual inspection Lymph: LYMPHATIC: no lymphadenopathy noted Chest: COMMONS NORMALS: normal inspection of the chest Breast/axilla inspection: Yes no chest deformity, asymmetry, normal contours, no nodules, masses, tenderness Resp: COMMON NORMALS: normal respiratory effort, No retractions, No use of accessory muscles and clear to auscultation bilaterally EFFORT & INSPECTION: Yes able to speak in complete sentences and Yes symmetric chest movement AUSCULTATION: clear to auscultation bilaterally Cardio: COMMON NORMALS: regular rate, regular rhythm and Peripheral pulses 2+ throughout RATE: regular rate RHYTHM: regular rhythm PERIPHERAL PULSES: Peripheral pulses 2+ throughout GI: COMMON NORMALS: Normal to inspection, nondistended, normoactive bowel sounds present, Soft to palpation, non-tender and No hepatosplenomegaly present INSPECTION: Yes normal to inspection AUSCULTATION: Yes normoactive bowel sounds PALPATION: Yes Soft to palpation and Yes No hepatosplenomegaly present RECTAL EXAM: deferred Extremity: COMMON NORMALS: normal to inspection GENERAL: Yes normal exam except as noted Neuro: COMMON NORMALS: patient oriented x3 SENSORIUM/ORIENTATION: Yes alert, Yes oriented to person, Yes oriented to place and Yes oriented to time CRANIAL NERVES: Yes CN normal except as noted Psych: COMMON NORMALS: mental status grossly normal, Normal thought process present, cooperative, activity/motor behavior normal, denies homicidal ideation and denies suicidal ideation THOUGHT PROCESS: Normal thought process present Skin: COMMON NORMALS: no rashes or lesions noted, no wounds and turgor normal GENERAL SKIN EXAM: no rashes or lesions noted and turgor normal Course Vital Signs: Vital signs: Vital Signs Temperature 97.9 F 12/05/24 12:58 Pulse Rate 61 12/05/24 23:30 Respiratory Rate 23 H 12/05/24 23:30 Blood Pressure 153/65 12/05/24 23:30 Pulse Oximetry 90 12/05/24 23:30 Oxygen Delivery Me thod Room Air 12/05/24 12:58 Oxygen Flow Rate 4 12/05/24 22:19 MDM - Weakness Medical Decision Making Patient evaluated in the emergency department today with complaints of fatigue, malaise, chills, diarrhea and recent influenza A infection. Patient arrived in the emergency department with reports of increased shortness of breath and inability to lie flat. Feels like she has no energy. She underwent a laboratory evaluation that included a CBC, CMP, troponin series, BNP, procalcitonin, lactic acid. Laboratory evaluation revealed no leukocytosis or anemias. No thrombocytopenia. Electrolytes within normal limits with the exception of her glucose that was 423. She was given 10 units of insulin and it decreased her sugar to be 380 range. She underwent another bolus of insulin which brought her glucose down to 281. Her urinalysis was unremarkable. Troponin series?20 initially with an increase of +0.3 and a 6-hour delta of 5. She had a BNP of 300. She had a negative COVID influenza and RSV test. She underwent an EKG which revealed a supraventricular rhythm, normal sinus rhythm with a rate of 62 beats a minute. No ectopy, ST elevation or abnormal T wave inversion. Her chest x-ray revealed no acute findings. Concern for possible pulmonary embolism she underwent a CTA chest. There was no evidence of PEs but she does have mild diffuse bronchitis without consolidation, mild emphysema, persistent mediastinal lymphadenopathy and a stable aneurysm. She has new dilation of the main pulmonary artery which suggest pulmonary arterial hypertension. Since her arrival patient had been on oxygen, 2 L. Initially her oxygen saturation was 85 on room air. She increased to 91 on 2 L. I consulted respiratory therapy to do a home oxygen evaluation. Upon standing patient became more hypoxic despite increased oxygen delivery. She failed to make it more than 25 feet before becoming too short of breath. I reviewed the case with Dr. Fernandes who agrees admission is necessary. Dr. Browning consulted for admission. Lab Data 12/05/24 13:50 12/05/24 13:50 Radiology Impressions Chest X-Ray 12/05/24 13:14 IMPRESSION: No acute findings. Chest CTA 12/05/24 18:43 IMPRESSION: 1. No evidence of pulmonary embolism. 2. Mild diffuse bronchitis. No focal consolidation.. 3. Dilation of the main pulmonary artery, which suggests pulmonary arterial hypertension. 4. Stable aneurysmal dilation of the ascending aorta measuring up to 4.0 cm, unchanged from the prior study. 5. Moderate coronary artery disease. 6. Mild centrilobular emphysema. 7. Persistent mediastinal lymphadenopathy, mildly decreased compared to the prior study. 8. 1.1 cm left thyroid lobe nodule. COMMENTS: 1. Consistent with the [employer]'s Incidental Findings Committee white paper ([employer] Sarab[employer]it [employer]iol 2015): In patients aged 35 years and older with an incidental thyroid nodule equal to or greater than 1.[address], MRI or extrathyroidal US, further evaluation with dedicated thyroid US is recommended for patients with normal life expectancy and without comorbidities. For smaller nodules without suspicious features, no further evaluation or follow up is recommended. 2. The presence of pulmonary emphysema on CT is an independent risk factor for lung cancer. In the absence of a history or active diagnosis of lung cancer, it is recommended that this patient with emphysema be evaluated for enrollment in a low dose CT lung cancer screening program. Laboratory Results WBC 6.39 10^3/uL (3.29-11.43) 12/05/24 13:50 RBC 4.51 10^6/uL (3.85-5.65) 12/05/24 13:50 Hgb 13.90 g/dL (11.27-16.99) 12/05/24 13:50 Hct 40.3 % (36-47) 12/05/24 13:50 MCV 89.4 fl (85-98) 12/05/24 13:50 MCH 30.8 pg (27-33) 12/05/24 13:50 MCHC 34.5 g/dL (30-55) 12/05/24 13:50 RDW 12.1 % (12.1-15.1) 12/05/24 13:50 Plt Count 260 10^3/cmm (157-399) 12/05/24 13:50 MPV 10.7 fL (7.4-10.4) H 12/05/24 13:50 Neut % (Auto) 46.6 % 12/05/24 13:50 Lymph % (Auto) 46.3 % 12/05/24 13:50 [place] % (Auto) 6.1 % 12/05/24 13:50 Eos % (Auto) 0.2 % 12/05/24 13:50 Baso % (Auto) 0.5 % 12/05/24 13:50 Neut # (Auto) 2.98 10^3/uL (1.8-7.7) 12/05/24 13:50 Lymph # (Auto) 3.0 10^3/uL (0.8-4.8) 12/05/24 13:50 [place] # (Auto) 0.4 10^3/uL (0.2-0.9) 12/05/24 13:50 Eos # (Auto) 0.0 10^3/uL (0.0-0.8) 12/05/24 13:50 Baso # (Auto) 0.0 10^3/uL (0.0-0.1) 12/05/24 13:50 Nucleated RBC % (auto) 0 % 12/05/24 13:50 Nucleated RBCs # 0.0 /100WBC 12/05/24 13:50 Sodium 135 mmol/L (136-145) L 12/05/24 13:50 Potassium 3.5 mmol/L (3.5-5.1) 12/05/24 13:50 Chloride 96 mmol/L (98-107) L 12/05/24 13:50 Carbon Dioxide 26 mmol/L (22-29) 12/05/24 13:50 Anion Gap 16.5 (5-19) 12/05/24 13:50 BUN 13 mg/dL (8-23) 12/05/24 13:50 Creatinine 0.5 mg/dL (0.5-0.9) 12/05/24 13:50 GFR Calculation 122.3 mL/min (90-130) 12/05/24 13:50 Glucose 423 mg/dL (65-115) H 12/05/24 13:50 POC Glucose 343 mg/dL (70-110) H 12/05/24 23:11 Calculated Osmolality 298 mOsm/kg (285-295) H 12/05/24 13:50 Lactic Acid 2.2 mmol/L (0.5-2.2) 12/05/24 13:50 Lactic Acid (Sepsis) 2.2 mmol/L (0.5-2.2) 12/05/24 17:56 Calcium 10.3 mg/dL (8.5-10.5) 12/05/24 13:50 Total Bilirubin 0.4 mg/dL (0.15-1.2) 12/05/24 13:50 AST 13 U/L (0-32) 12/05/24 13:50 ALT 18 U/L (0-33) 12/05/24 13:50 Alkaline Phosphatase 107 U/L (35-105) H 12/05/24 13:50 Troponin T Baseline 20 ng/L (0-10) H 12/05/24 13:50 Troponin T 120 Minute 20.30 ng/L (0-10) H 12/05/24 17:56 Delta Troponin T 0.30 ABS# (0-10) 12/05/24 17:56 Troponin T Hi Sens 6Hr 24.69 ng/L (0-10) H 12/05/24 22:05 Troponin T Hi Sens 6Hr Delta 4.69 ng/L (0-12) 12/05/24 22:05 C-Reactive Protein 3.0 mg/L (0.0-4.9) 12/05/24 13:50 NT-Pro-B Natriuret Pep 306 pg/mL (0-125) H 12/05/24 13:50 Total Protein 6.9 g/dL (6.6-8.7) 12/05/24 13:50 Albumin 4.1 g/dL (3.5-5.2) 12/05/24 13:50 Globulin 2.8 g/dL (1.3-4.6) 12/05/24 13:50 Procalcitonin 0.04 ng/mL (0-0.5) 12/05/24 13:50 Urine Color Yellow (Yellow) 12/05/24 17:26 Urine Appearance Clear (CLEAR) 12/05/24 17:26 Urine pH 6.0 (5-7) 12/05/24 17:26 Ur Specific [place] 1.034 (1.005-1.030) H 12/05/24 17:26 Urine Protein 1+ (Negative) A 12/05/24 17:26 Urine Glucose (UA) 3+ (Normal) H 12/05/24 17:26 Urine Ketones Negative (Negative) 12/05/24 17:26 Urine Blood Negative (Negative) 12/05/24 17:26 Urine Nitrate Negative (Negative) 12/05/24 17:26 Urine Bilirubin Negative (Negative) 12/05/24 17:26 Urine Urobilinogen 0.2 mg/dL (Negative) 12/05/24 17:26 Ur Leukocyte Esterase Negative (Negative) 12/05/24 17:26 Urine RBC 0-2 /hpf (0-2) 12/05/24 17:26 Urine WBC 0-5 /hpf (0-5) 12/05/24 17:26 Ur Squamous Epith Cells 0-5 /hpf (0-5) 12/05/24 17:26 Amorphous Sediment Not Reportable 12/05/24 17:26 Urine Bacteria None seen /hpf (NONE) 12/05/24 17:26 Hyaline Casts 0-4 /lpf H 12/05/24 17:26 Coronavirus (PCR) Negative (Negative) 12/05/24 13:00 Influenza A (PCR) Negative (Negative) 12/05/24 13:00 Influenza Type B (PCR) Negative (Negative) 12/05/24 13:00 RSV (PCR) Negative (Negative) 12/05/24 13:00 All radiology interpretation(s) finalized by discharge Discharge Plan Discharge Patient Disposition: Xfer Short-Term Hosp Clinical Impression: Pulmonary hypertension, Acute exacerbation of chronic obstructive pulmonary disease, Hypoxia, Hyperglycemia, Elevated troponin Condition: Stable Prescriptions: New doxycycline hyclate 100 mg tablet,delayed release (DR/EC) 100 mg PO BID 5 Days Qty: 10 0RF No Action glipizide 10 mg tablet 10 mg PO DAILY atorvastatin [Lipitor] 80 mg tablet 80 mg PO DAILY lorazepam 0.5 mg tablet 0.5 mg PO DAILY PRN (Reason: severe anxiety) pantoprazole 40 mg tablet,delayed release (DR/EC) 40 mg PO DAILY Qty: 30 3RF methotrexate sodium 2.5 mg tablet See Rx Instructions PO Q7D Qty: 40 3RF Hold Instructions: Doctor's Order Rx Instructions: Split dose...4 tabs in am and 4 tabs in pm on same day once a week. PO every 7 days; lisinopril 40 mg tablet 40 mg PO DAILY insulin glargine [Basaglar KwikPen U-100 Insulin] 100 unit/mL (3 mL) insulin pen 15 unit SUBCUT DAILY Discharge Orders: Discharge ED (Routine); Ordered 12/05/24 Ordered By: Sarah Flanagan McTyara Referrals: Arnoldo Avalos MD [Primary Care Provider] - Discharge Diet: Advance as tolerated Discharge Activity: Resume usual activity Patient Instructions: COPD - Emphysema, Chronic Bronchitis (DC), Pulmonary Arterial Hypertension (ED), How Your Lungs Work (ED), Dyspnea Scale and Exercise (ED), High Troponin Levels (ED) Coding Level of Care Code 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 Related Data Home Medications Medication Instructions Recorded Confirmed atorvastatin 80 mg tablet (Lipitor) 80 mg PO DAILY 04/12/20 08/31/24 glipizide 10 mg tablet 10 mg PO DAILY 04/12/20 08/31/24 lorazepam 0.5 mg tablet 0.5 mg PO DAILY PRN severe anxiety 04/12/20 08/31/24 insulin glargine 100 unit/mL (3 15 unit SUBCUT DAILY 08/31/24 08/31/24 mL) subcutaneous pen (Basaglar KwikPen U-100 Insulin) lisinopril 40 mg tablet 40 mg PO DAILY 08/31/24 08/31/24 Previous Rx's Medication Instructions Recorded pantoprazole 40 mg tablet,delayed 40 mg PO DAILY #30 tabs 01/11/21 release methotrexate sodium 2.5 mg tablet See Rx Instructions PO Q7D #40 tabs 10/16/23 doxycycline hyclate 100 mg 100 mg PO BID 5 days #10 tabs 12/05/24 tablet,delayed release Allergies Allergy/AdvReac Type Severity Reaction Status Date / Time aspirin Allergy ADR-Nausea Verified 02/08/24 21:44 codeine Allergy Unknown Verified 02/08/24 21:44 penicillin G AdvReac Intermediate ALGY-Rash Verified 09/01/24 12:35 Documented by User: Lucas Fernandes DO 12/06/24 00:22 HPI - Weakness General: Chief complaint: Weakness Stated complaint: weakness/dizziness Time Seen by Provider: 12/05/24 18:19 PFSH ED PFSH: Medical History Chronic steroid use Seronegative rheumatoid arthritis of both hands Hammertoes of both feet Foot callus Diabetes mellitus High risk medication use Immunization counseling Seropositive rheumatoid arthritis Surgical History No pertinent past surgical history Family History Other Arthritis Cancer Heart disease Stroke Social History Smoking and tobacco/nicotine status: never used tobacco/nicotine Alcohol intake: never Course Vital Signs: Vital signs: Vital Signs Temperature 97.9 F 12/05/24 12:58 Pulse Rate 61 12/05/24 23:30 Respiratory Rate 23 H 12/05/24 23:30 Blood Pressure 153/65 12/05/24 23:30 Pulse Oximetry 90 12/05/24 23:30 Oxygen Delivery Me thod Room Air 12/05/24 12:58 Oxygen Flow Rate 4 12/05/24 22:19 MDM - Weakness Medical Decision Making Patient evaluated in the emergency department today with complaints of fatigue, malaise, chills, diarrhea and recent influenza A infection. Patient arrived in the emergency department with reports of increased shortness of breath and inability to lie flat. Feels like she has no energy. She underwent a laboratory evaluation that included a CBC, CMP, troponin series, BNP, procalcitonin, lactic acid. Laboratory evaluation revealed no leukocytosis or anemias. No thrombocytopenia. Electrolytes within normal limits with the exception of her glucose that was 423. She was given 10 units of insulin and it decreased her sugar to be 380 range. She underwent another bolus of insulin which brought her glucose down to 281. Her urinalysis was unremarkable. Troponin series?20 initially with an increase of +0.3 and a 6-hour delta of 5. She had a BNP of 300. She had a negative COVID influenza and RSV test. She underwent an EKG which revealed a supraventricular rhythm, normal sinus rhythm with a rate of 62 beats a minute. No ectopy, ST elevation or abnormal T wave inversion. Her chest x-ray revealed no acute findings. Concern for possible pulmonary embolism she underwent a CTA chest. There was no evidence of PEs but she does have mild diffuse bronchitis without consolidation, mild emphysema, persistent mediastinal lymphadenopathy and a stable aneurysm. She has new dilation of the main pulmonary artery which suggest pulmonary arterial hypertension. Since her arrival patient had been on oxygen, 2 L. Initially her oxygen saturation was 85 on room air. She increased to 91 on 2 L. I consulted respiratory therapy to do a home oxygen evaluation. Upon standing patient became more hypoxic despite increased oxygen delivery. She failed to make it more than 25 feet before becoming too short of breath. I reviewed the case with Dr. Fernandes who agrees admission is necessary. Dr. Browning consulted for admission. This patient was originally seen by DANYELLE Mares.? I agree with her history, evaluation, and treatment. I agree with above. However, we have no bed availability at this facility currently. We have multiple holds in the emergency department. We have contacted [facility] in [facility] for help regarding this patient. They are willing to take in transfer. She is stable for transfer. Lab Data 12/05/24 13:50 12/05/24 13:50 Radiology Impressions Chest X-Ray 12/05/24 13:14 IMPRESSION: No acute findings. Chest CTA 12/05/24 18:43 IMPRESSION: 1. No evidence of pulmonary embolism. 2. Mild diffuse bronchitis. No focal consolidation.. 3. Dilation of the main pulmonary artery, which suggests pulmonary arterial hypertension. 4. Stable aneurysmal dilation of the ascending aorta measuring up to 4.0 cm, unchanged from the prior study. 5. Moderate coronary artery disease. 6. Mild centrilobular emphysema. 7. Persistent mediastinal lymphadenopathy, mildly decreased compared to the prior study. 8. 1.1 cm left thyroid lobe nodule. COMMENTS: 1. Consistent with the [employer] [employer]'s Incidental Findings Committee white paper ([employer]ab[employer]it [employer]iol 2015): In patients aged 35 years and older with an incidental thyroid nodule equal to or greater than 1.[address], MRI or extrathyroidal US, further evaluation with dedicated thyroid US is recommended for patients with normal life expectancy and without comorbidities. For smaller nodules without suspicious features, no further evaluation or follow up is recommended. 2. The presence of pulmonary emphysema on CT is an independent risk factor for lung cancer. In the absence of a history or active diagnosis of lung cancer, it is recommended that this patient with emphysema be evaluated for enrollment in a low dose CT lung cancer screening program. Laboratory Results WBC 6.39 10^3/uL (3.29-11.43) 12/05/24 13:50 RBC 4.51 10^6/uL (3.85-5.65) 12/05/24 13:50 Hgb 13.90 g/dL (11.27-16.99) 12/05/24 13:50 Hct 40.3 % (36-47) 12/05/24 13:50 MCV 89.4 fl (85-98) 12/05/24 13:50 MCH 30.8 pg (27-33) 12/05/24 13:50 MCHC 34.5 g/dL (30-55) 12/05/24 13:50 RDW 12.1 % (12.1-15.1) 12/05/24 13:50 Plt Count 260 10^3/cmm (157-399) 12/05/24 13:50 MPV 10.7 fL (7.4-10.4) H 12/05/24 13:50 Neut % (Auto) 46.6 % 12/05/24 13:50 Lymph % (Auto) 46.3 % 12/05/24 13:50 [place] % (Auto) 6.1 % 12/05/24 13:50 Eos % (Auto) 0.2 % 12/05/24 13:50 Baso % (Auto) 0.5 % 12/05/24 13:50 Neut # (Auto) 2.98 10^3/uL (1.8-7.7) 12/05/24 13:50 Lymph # (Auto) 3.0 10^3/uL (0.8-4.8) 12/05/24 13:50 [place] # (Auto) 0.4 10^3/uL (0.2-0.9) 12/05/24 13:50 Eos # (Auto) 0.0 10^3/uL (0.0-0.8) 12/05/24 13:50 Baso # (Auto) 0.0 10^3/uL (0.0-0.1) 12/05/24 13:50 Nucleated RBC % (auto) 0 % 12/05/24 13:50 Nucleated RBCs # 0.0 /100WBC 12/05/24 13:50 Sodium 135 mmol/L (136-145) L 12/05/24 13:50 Potassium 3.5 mmol/L (3.5-5.1) 12/05/24 13:50 Chloride 96 mmol/L (98-107) L 12/05/24 13:50 Carbon Dioxide 26 mmol/L (22-29) 12/05/24 13:50 Anion Gap 16.5 (5-19) 12/05/24 13:50 BUN 13 mg/dL (8-23) 12/05/24 13:50 Creatinine 0.5 mg/dL (0.5-0.9) 12/05/24 13:50 GFR Calculation 122.3 mL/min (90-130) 12/05/24 13:50 Glucose 423 mg/dL (65-115) H 12/05/24 13:50 POC Glucose 343 mg/dL (70-110) H 12/05/24 23:11 Calculated Osmolality 298 mOsm/kg (285-295) H 12/05/24 13:50 Lactic Acid 2.2 mmol/L (0.5-2.2) 12/05/24 13:50 Lactic Acid (Sepsis) 2.2 mmol/L (0.5-2.2) 12/05/24 17:56 Calcium 10.3 mg/dL (8.5-10.5) 12/05/24 13:50 Total Bilirubin 0.4 mg/dL (0.15-1.2) 12/05/24 13:50 AST 13 U/L (0-32) 12/05/24 13:50 ALT 18 U/L (0-33) 12/05/24 13:50 Alkaline Phosphatase 107 U/L (35-105) H 12/05/24 13:50 Troponin T Baseline 20 ng/L (0-10) H 12/05/24 13:50 Troponin T 120 Minute 20.30 ng/L (0-10) H 12/05/24 17:56 Delta Troponin T 0.30 ABS# (0-10) 12/05/24 17:56 Troponin T Hi Sens 6Hr 24.69 ng/L (0-10) H 12/05/24 22:05 Troponin T Hi Sens 6Hr Delta 4.69 ng/L (0-12) 12/05/24 22:05 C-Reactive Protein 3.0 mg/L (0.0-4.9) 12/05/24 13:50 NT-Pro-B Natriuret Pep 306 pg/mL (0-125) H 12/05/24 13:50 Total Protein 6.9 g/dL (6.6-8.7) 12/05/24 13:50 Albumin 4.1 g/dL (3.5-5.2) 12/05/24 13:50 Globulin 2.8 g/dL (1.3-4.6) 12/05/24 13:50 Procalcitonin 0.04 ng/mL (0-0.5) 12/05/24 13:50 Urine Color Yellow (Yellow) 12/05/24 17:26 Urine Appearance Clear (CLEAR) 12/05/24 17:26 Urine pH 6.0 (5-7) 12/05/24 17:26 Ur Specific [place] 1.034 (1.005-1.030) H 12/05/24 17:26 Urine Protein 1+ (Negative) A 12/05/24 17:26 Urine Glucose (UA) 3+ (Normal) H 12/05/24 17:26 Urine Ketones Negative (Negative) 12/05/24 17:26 Urine Blood Negative (Negative) 12/05/24 17:26 Urine Nitrate Negative (Negative) 12/05/24 17:26 Urine Bilirubin Negative (Negative) 12/05/24 17:26 Urine Urobilinogen 0.2 mg/dL (Negative) 12/05/24 17:26 Ur Leukocyte Esterase Negative (Negative) 12/05/24 17:26 Urine RBC 0-2 /hpf (0-2) 12/05/24 17:26 Urine WBC 0-5 /hpf (0-5) 12/05/24 17:26 Ur Squamous Epith Cells 0-5 /hpf (0-5) 12/05/24 17:26 Amorphous Sediment Not Reportable 12/05/24 17:26 Urine Bacteria None seen /hpf (NONE) 12/05/24 17:26 Hyaline Casts 0-4 /lpf H 12/05/24 17:26 Coronavirus (PCR) Negative (Negative) 12/05/24 13:00 Influenza A (PCR) Negative (Negative) 12/05/24 13:00 Influenza Type B (PCR) Negative (Negative) 12/05/24 13:00 RSV (PCR) Negative (Negative) 12/05/24 13:00 Discharge Plan Discharge Patient Disposition: Xfer Short-Term Hosp Clinical Impression: Pulmonary hypertension, Acute exacerbation of chronic obstructive pulmonary disease, Hypoxia, Hyperglycemia, Elevated troponin Condition: Stable Prescriptions: New doxycycline hyclate 100 mg tablet,delayed release (DR/EC) 100 mg PO BID 5 Days Qty: 10 0RF No Action glipizide 10 mg tablet 10 mg PO DAILY atorvastatin [Lipitor] 80 mg tablet 80 mg PO DAILY lorazepam 0.5 mg tablet 0.5 mg PO DAILY PRN (Reason: severe anxiety) pantoprazole 40 mg tablet,delayed release (DR/EC) 40 mg PO DAILY Qty: 30 3RF methotrexate sodium 2.5 mg tablet See Rx Instructions PO Q7D Qty: 40 3RF Hold Instructions: Doctor's Order Rx Instructions: Split dose...4 tabs in am and 4 tabs in pm on same day once a week. 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 [facility] Fwd Related Data Home Medications Medication Instructions Recorded Confirmed atorvastatin 80 mg tablet (Lipitor) 80 mg PO DAILY 04/12/20 08/31/24 glipizide 10 mg tablet 10 mg PO DAILY 04/12/20 08/31/24 lorazepam 0.5 mg tablet 0.5 mg PO DAILY PRN severe anxiety 04/12/20 08/31/24 insulin glargine 100 unit/mL (3 15 unit SUBCUT DAILY 08/31/24 08/31/24 mL) subcutaneous pen (Basaglar KwikPen U-100 Insulin) lisinopril 40 mg tablet 40 mg PO DAILY 08/31/24 08/31/24 Previous Rx's Medication Instructions Recorded pantoprazole 40 mg tablet,delayed 40 mg PO DAILY #30 tabs 01/11/21 release methotrexate sodium 2.5 mg tablet See Rx Instructions PO Q7D #40 tabs 10/16/23 doxycycline hyclate 100 mg 100 mg PO BID 5 days #10 tabs 12/05/24 tablet,delayed release Allergies Allergy/AdvReac Type Severity Reaction Status Date / Time aspirin Allergy ADR-Nausea Verified 02/08/24 21:44 codeine Allergy Unknown Verified 02/08/24 21:44 penicillin G AdvReac Intermediate ALGY-Rash Verified 09/01/24 12:35
[2024-12-05 18:29] LABS: Lactic Acid level (Lactate) 2.2 mmol/L (0.5-2.2)
--- NOTE | 2024-12-05 18:43 | CTR_ITS ---
PROCEDURE INFORMATION: Exam: CTA Chest With Contrast Exam date and time: 12/05/2024 7:12 PM Age: 69 years old Clinical indication: Shortness of breath; SOB with hypoxia TECHNIQUE: Imaging protocol: Computed tomographic angiography of the chest with contrast. Exam focused on the arteries. 3D rendering (Not supervised by radiologist): MIP and/or 3D reconstructed images were created by the technologist. Radiation optimization: All CT scans at this facility use at least one of these dose optimization techniques: automated exposure control; mA and/or kV adjustment per patient size (includes targeted exams where dose is matched to clinical indication); or iterative reconstruction. Contrast material: OMNI 350; Contrast volume: 60 ml; Contrast route: INTRAVENOUS (IV); COMPARISON: CT angio chest PE protcl [id number] 08/31/2024 6:42 PM RADIATION DOSE METRICS: Total DLP (mGy-cm): 358.51 FINDINGS: Pulmonary arteries: No evidence of pulmonary embolism. Dilation of the main pulmonary artery up to 3.3 cm, which suggests pulmonary arterial hypertension. Aorta: Stable aneurysmal dilation of the ascending aorta measuring up to 4.0 cm, unchanged from the prior study. Thyroid: 1.1 cm left thyroid lobe nodule. Trachea: The central airways are patent. There are scattered distal impacted small airways. Lungs: Background of mild centrilobular emphysema. Bibasilar atelectasis. Mild diffuse bronchial wall thickening. No focal consolidation. Pleural spaces: No significant pleural effusion. No pneumothorax. Heart: There is mild calcification of the mitral valve annulus. Mild aortic valvular calcifications. The heart is normal in size. No pericardial effusion. Coronary arteries: There are moderate coronary artery calcifications. Lymph nodes: Mediastinal lymphadenopathy, mildly decreased compared to the prior study. Bones/joints: The spine demonstrates mild degenerative changes at multiple levels. Soft tissues: Soft tissues are unremarkable as visualized. CT/CT angio chest PE protcl [id number] IMPRESSION: 1. No evidence of pulmonary embolism. 2. Mild diffuse bronchitis. No focal consolidation.. 3. Dilation of the main pulmonary artery, which suggests pulmonary arterial hypertension. 4. Stable aneurysmal dilation of the ascending aorta measuring up to 4.0 cm, unchanged from the prior study. 5. Moderate coronary artery disease. 6. Mild centrilobular emphysema. 7. Persistent mediastinal lymphadenopathy, mildly decreased compared to the prior study. 8. 1.1 cm left thyroid lobe nodule. COMMENTS: 1. Consistent with the [employer]'s Incidental Findings Committee white paper (J Am Sarabjit Radiol 2015): In patients aged 35 years and older with an incidental thyroid nodule equal to or greater than 1.[address], MRI or extrathyroidal US, further evaluation with dedicated thyroid US is recommended for patients with normal life expectancy and without comorbidities. For smaller nodules without suspicious features, no further evaluation or follow up is recommended. 2. The presence of pulmonary emphysema on CT is an independent risk factor for lung cancer. In the absence of a history or active diagnosis of lung cancer, it is recommended that this patient with emphysema be evaluated for enrollment in a low dose CT lung cancer screening program.
[2024-12-05 18:54] LABS: Procalcitonin 0.04 ng/mL (0-0.5)
--- NOTE | 2024-12-05 19:14 | ECG_ITS ---
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
[2024-12-05] MEDS: iohexol 350 mg/mL 500 mL Btl (per mL) IV (19:16)
[2024-12-05] MEDS: insulin regular-human 100 units/1 mL 10 UNIT IVP (21:14)
[2024-12-05] MEDS: labetalol 5 mg/mL SDV 20mL 10 MG IVP ×2 (21:38→23:13)
[2024-12-05 21:53] LABS: Glucose Point of Care 394 mg/dL (70-110)
[2024-12-05 22:14] LABS: Glucose Point of Care 281 mg/dL (70-110)
[2024-12-05] MEDS: methylPREDNISolone sod succ 125 mg/2 mL INJ IVP (22:49)
[2024-12-05] MEDS: doxycycline 100 mg Tablet PO (22:50)
[2024-12-05 22:55] LABS: Troponin 5 6HR 24.69 ng/L (0-10); Troponin 5 6HR Delta 4.69 ng/L (0-12)
[2024-12-05] MEDS: insulin regular-human 100 units/1 mL 5 UNIT IVP (23:11)
[2024-12-05 23:20] LABS: Glucose Point of Care 343 mg/dL (70-110)
[2024-12-06] VITALS (8 sets, daily range): BP systolic 170–177; BP diastolic 74–96; PULSE 64–70; RESP 17–25; O2SAT 90–91
[2024-12-06 01:15] LABS: Glucose Point of Care 408 mg/dL (70-110)
== END 2024-12-06 01:50 | disposition short-term general hospital (02) ==
PROVIDERS: Emergency Medicine; Emergency Provider Nurse Practitioner; PCP Family Medicine
DX: J44.1 Chronic obstructive pulmonary disease with (acute) exacerbation (principal); R09.02 Hypoxemia; E11.65 Type 2 diabetes mellitus with hyperglycemia; E78.5 Hyperlipidemia, unspecified; I10 Essential (primary) hypertension; R79.89 Other specified abnormal findings of blood chemistry; Z11.52 Encounter for screening for COVID-19; Z79.4 Long term (current) use of insulin
CPT/HCPCS: 36415; 36416; 71045; 71275; 80053; 81001; 82962; 83605; 83880; 84145; 84484; 85025; 86140; 87040; 87637; 93005; 94760; 96374; 96375; 96376; 99285; J1815; J2919; J3490

== ENCOUNTER 2025-03-31 10:13 | Outpatient (CLI) | payer MEDICARE, SELFPAY ==
--- NOTE | 2025-03-31 10:18 | USCV_ITS ---
CarolPalma barr Age: 70 Gender: F : 1955 Exam Date: 03/31/2025 11:09 Ordering Phys: Arnoldo Avalos MD Technologist: Exam Location[place] [facility] [place] Indication: cp sob BP: 150 / 80 HR: 69 Rhythm: Sinus Technical Quality: Adequate MEASUREMENTS (Male / Female) Normal Values 2D ECHO LV Diastolic Diameter PLAX 4.7 cm 4.2 - 5.9 / 3.9 - 5.3 cm IVS Diastolic Thickness 1.3 cm 0.6 - 1.0 / 0.6 - 0.9 cm IVS Systolic Thickness 1.6 cm LVPW Diastolic Thickness 1.5 cm 0.6 - 1.0 / 0.6 - 0.9 cm LVPW Systolic Thickness 1.6 cm LVOT Diameter 2.0 cm LV Ejection Fraction 2D Teich 62.2 % LV Ejection Fraction MOD 4C 57.2 % LV Ejection Fraction MOD 2C 52.4 % LV Ejection Fraction 2C AL 54.3 % LA Diameter 3.6 cm RA Systolic Volume 4C AL 27.7 ml RA Systolic Volume 4C MOD 27.8 ml LA Sys Volume AL 42.1 cm cubed LA Sys Volume Index AL 22.0 cm cubed/m squared Aorta at Sinotubular Diameter 2.8 cm M-MODE LA Ao Ratio MM 1.1 AV Cusp Separation MM 2.1 cm DOPPLER AV Peak Velocity 135.0 cm/s LVOT Peak Velocity 94.0 cm/s AV Area Cont Eq vti 2.6 cm squared AV Area Cont Eq pk 2.2 cm squared MV Peak Velocity 102.0 cm/s MV Area PHT 3.0 cm squared Mitral E to A Ratio 0.8 TV Peak Velocity 180.5 cm/s TR Peak Velocity 187.0 cm/s TR Peak Gradient 14.0 mmHg TV Peak E Velocity 108.0 cm/s PV Peak Velocity 104.0 cm/s FINDINGS Left Ventricle Left ventricle is normal in size. LV systolic function is normal with EF of 50-55%. No regional wall motion abnormalities are seen. Grade 1 diastolic dysfunction. Right Ventricle Normal in size and function Right Atrium Normal in size Left Atrium Normal in size Mitral Valve Mild mitral annular calcification. Trace mitral regurgitation Aortic Valve Aortic valve is thickened. Tricuspid Valve Insufficient TR jet to calculate RVSP. Pulmonic Valve Not well visualized Pericardium Normal Aorta Normal in size IVC Not well visualized CONCLUSIONS LV systolic function is normal with EF of 50-55% Grade 1 diastolic dysfunction Trace mitral regurgitation No comparison studies are available. Michoacano Dickinson MD (Electronically Signed) Final Date: 18 April 2025 15:54 S
--- NOTE | 2025-03-31 10:18 | US_ITS ---
WS: [id number] THYROID ULTRASOUND HISTORY: DOMINANT THYROID NODULE COMPARISON: CT 12/05/2024 Right lobe: 1.2 cm x 1.9 cm x 3.4 cm (w x ap x l). Volume: 3.6 cm3. Gland is heterogeneous but no definite nodules are identified. Slightly lobulated shape of the thyroid without increased vascularity. Left lobe: 1.1 cm x 1.6 cm x 3.2 cm (w x ap x l). Volume: 2.7 cm3. Small caliber gland with mild heterogeneity. There is a hypoechoic nodule measuring 0.7 x 1.2 x 1.0 cm along the LEFT inferior thyroid. This nodule is very close associated with the carotid artery. No echogenic foci or increased vascularity. Isthmus: 0.2 cm. US/US thyroid [id number] IMPRESSION: 1. TI-RADS 5; nodule inferior pole LEFT thyroid is suspicious for neoplasm. Co nsider further evaluation. Due to its location very closely associated with the carotid artery this may be difficult to biopsy by ultrasound guidance. Evaluat ion by ENT versus attempted thyroid biopsy by ultrasound guidance.
== END 2025-03-31 10:14 | disposition home or self-care (01) ==
PROVIDERS: PCP Family Medicine; Visit Provider Family Medicine
DX: E04.1 Nontoxic single thyroid nodule (principal); R93.1 Abnormal findings on diagnostic imaging of heart and coronary circulation; I34.81 Nonrheumatic mitral (valve) annulus calcification; I35.8 Other nonrheumatic aortic valve disorders
CPT/HCPCS: 76536; 93306

== ENCOUNTER 2025-05-29 18:11 | Emergency (ER) | payer MEDICARE, SELFPAY ==
[2025-05-29 18:13] VITALS: BP 210/104; PULSE 85; RESP 18; TEMP 36.3; O2SAT 96; BMI 25.0
--- OUTSIDE RECORDS SUMMARY | 2025-05-29 18:19 | XMS_ITS | Clinical Summary ---
Author Organization [facility] Address [address] [place] [address] Phone Care Team Providers Care Library Sales Consultant Name Role Phone Arnoldo Avalos MD Primary Care Provider [phone] Allergies Active Allergy Reactions Criticality Noted Date Comments Aspirin Nausea and Vomiting Low 12/06/2024 Azithromycin Rash,Itching Low 12/06/2024 Codeine Nausea and Vomiting Low 12/06/2024 Penicillins Other (See Comments) 12/06/2024 Gets a yeast infection from it every times she uses it. Medications glipiZIDE (GLUCOTROL) 10 mg tablet Take 10 mg by mouth 2 times daily with meals. Active atorvastatin (LIPITOR) 80 mg tablet Take 80 mg by mouth daily. Active LORazepam (ATIVAN) 0.5 mg tablet Take 0.5 mg by mouth 2 times daily as needed for Anxiety. Active pantoprazole (PROTONIX) 40 mg Tablet, Delayed Release (E.C.) Take 40 mg by mouth daily. Active methotrexate (RHEUMATREX) 2.5 mg Tablet Take 20 mg by mouth every 7 days. 10 mg in a.m., 10 mg in p.m. every 7 days Active lisinopriL (PRINIVIL) 40 mg tablet Take 40 mg by mouth daily. Active insulin glargine (LANTUS) 100 unit/mL pen syringe Inject 30 Units by subcutaneous injection daily at bedtime. Active PARoxetine HCl (PAXIL) 40 mg tabletIndicatio ns:Takes in the AM Take 40 mg by mouth daily. Active Active Problems Problem Noted Date Diagnosed Date Aneurysm of ascending aorta without rupture 02/2025 Thyroid nodule greater than or equal to 1 cm in diameter incidentally noted on imaging study 12/08/2024 DM (diabetes mellitus), type 2 12/06/2024 Acute hypoxic respiratory failure 12/06/2024 Dyspnea 12/06/2024 Benign hypertension 12/06/2024 Mixed hyperlipidemia 12/06/2024 Continuous dependence on cigarette smoking 12/06 Encounters Date Type Department Care Team Description 05/19/2025 External Device Data [facility] ABSTRACTION Provider, Abstract 05/19/2025 External Device Data [facility] ABSTRACTION Provider, Abstract 04/13/2025 External Device Data [facility] ABSTRACTION Provider, Abstract 03/09/2025 External Device Data [facility]STRACTION Provider, Abstract 03/02/2025 External Device Data [facility] ABSTRACTION Provider, Abstract 03/02/2025 External Device Data [facility] ABSTRACTION Provider, Abstract from Last 3 Months Social History Tobacco Use Types Packs/Day Years Used Date Smoking Tobacco: Every Day Cigarettes Smokeless Tobacco: Never Tobacco Cessation:Ready to Q uit: Not Asked; Counseling Given: Not Answered Alcohol Use Standard Drinks/Week Comments Not Currently 0 (1 standard drink = 0.6 oz pur e alcohol) Comments No Sex and Gender Information Value Date Recorded Sex Assigned at Not on file Legal Sex Female 10:05 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 [employer] Gender Identity Not on file Sexual Orientation Not on file Last Filed Vital Signs Vital Sign Reading Time Taken Comments Blood Pressure 172/57 12/08/2024 7:18 AM [employer] Pulse 86 12/08/2024 7:21 AM MANAGER [employer] Temperature 36.7 C (98 F) 12/08/2024 7:18 AM [employer] Respiratory Rate 18 12/08/2024 7:21 AM MANAGER [employer]ION Oxygen Saturation 97% 12/08/2024 7:18 AM MANAGER [employer] Inhaled Oxygen Concentration - - Weight 71.9 kg (158 lb 9.6 oz) 12/06/2024 4:39 A M MANAGER [employer] Height 172.7 cm (5' 8 ) 12/06/2024 4:39 AM MANAGER [employer] Body Mass Index 24.12 12/06/2024 4:39 AM MANAGER [employer] Plan of Treatment Health Maintenance Due Date Last Done Comments DIABETES ANNUAL FOOT EXAM 1973 DIABETES ANNUAL RETINAL EXAM 1973 DIABETES MICROALBUMIN ANNUAL SCREEN 1973 LDL CHOLESTEROL ANNUAL 1973 DTAP/TDAP/TD VACCINES (1 - Tdap) 1974 PNEUMOCOCCAL VACCINE 50+ YEA RS (1 of 2 - PCV) 1974 BREAST CANCER SCREENING 1995 COLORECTAL SCREENING 2000 Colorectal Cancer Screening 2000 FIT-DNA Q 3 years 2000 FIT/FOBT Q 1 year 2000 Flex Sig/CT Colonography Q 5 years 2000 ZOSTER VACCINE (1 of 2) 2005 RSV VACCINE (60+ or ) (1 - Risk 60-74 years 1-dose series) 2015 OSTEOPOROSIS SCREENING 2020 COVID-19 Vaccine ( - season) 2024 10/13/2021, 03/10/2021, 02/10/2021 INFLUENZA VACCINE (#1) 2025 DIABETES HBA1C Q 6 MONTHS 06/05/2025 12/06/2024 Procedures Procedure Name Priority Date/Time Associated Diagnosis Comments HEMOGLOBIN A1C Routine 12/06/2024 5:45 AM MANAGER [employer] from Last 3 Months or Most Recently Relevant to Health Maintenance Results * (ABNORMAL) HEMOGLOBIN A1C (12/06/2024 5:45 AM MANAGER [employer]) HEMOGLOBIN A1C 9.7(H) <=5.6 % 12/06/2024 7:32 AM [facility] EST. AVG GLUCOSE, A1C 232 mg/dL 12/06/2024 7:32 AM [facility] Blood BLOOD SPECIMEN / Unknown Collection / Unknown 12/06/2024 5:45 AM MANAGER [employer]ION 12/06/2024 6:01 AM MANAGER CON[employer]ION [facility] - 12/06/2024 7:32 AM MANAGER CONVENTION HGB A1C INTERPRETATION NORMAL: <5.7% PRE-DIABETES: 5.7 - 6.4% DIABETES: 6.5% OR GREATER Robert Sharp DO CHEMISTRY ORDERABLES Final Result [facility] CLIA # [id number] [address] [facility] [address] [place] [address] from Last 3 Months or Most Recently Relevant to Health Maintenance Insurance [facility] PPO [facility] Advance Directives For more information, please contact: [phone] * Full Code (Latest Code Status on File) Date Activated Date Inactivated Comments 12/06/2024 6:19 AM 12/08/2024 12:33 PM Care Teams Library Sales Consultant Relationship Specialty Start Date End Date Arnoldo Avalos MD [address] [place] [id number] PCP - General Family Practice 12/06/24
--- OUTSIDE RECORDS SUMMARY | 2025-05-29 18:19 | XMS_ITS | Data Portability ---
Author Organization PRINCESS Cal Mckinney [facility], [facility], [facility] Address [address] [address] Care Team Providers Care Weigh Box Tender Name Role Phone ROBERT HURD Primary Care Provider Assessment Encounter Date Assessment Date Assessment LastModified by Organization Details LastModified Time 12/14/2024 12/14/2024 i will have her sign for hospitalization records. sugar is significantly improved since d/c of prednisone on 12/12/2024. will bring uff for accuracy. CT/CT angio chest PE protcol [id number] IMPRESSION: 1. No evidence of pulmonary embolism. 2. Mild diffuse bronchitis. No focal consolidation.. 3. Dilation of the main pulmonary artery, which suggests pulmonary arterial hypertension. 4. Stable aneurysmal dilation of the ascending aorta measuring up to 4.0 cm, unchanged from the prior study. 5. Moderate coronary artery disease. 6. Mild centrilobular emphysema. 7. Persistent mediastinal lymphadenopathy, mildly decreased compared to the prior study. 8. 1.1 cm left thyroid lobe nodule. [email or web address] Not available 12/14/2024 12:02:02 12/28/2024 12/28/2024 echo is this wee k thyroid u/s is in 2 weeks [email or web address] Not available 12/28/2024 12:31:57 02/08/2025 02/08/2025 I asked her to please check her bp each am and her blood sugar per her usual schedule in order to help me adjust her bp medication and sugar more safely. a1c and so forth are due in march and scheduled she will get appt times and f/u afterward. she is going to do god's will and the things he has asked her to do. once she does these things she feels she will no longer be depressed. so, i will wait and see. i recommended a change or addition to tx and she declines today. [email or web address] Not available 02/08/2025 14:02:34 Plan of Treatment Reminders Order Date Submit Date Provider Last Modified By Organization Details Last Modified Time Details Appointments None recorded. Lab SARS CoV 2 RNA, QL, nasopharynx 2024 025 [facility] ([facility]), [address] [place], [address], 5 12:01:04 rapid flu (A+B), PCR 2024 025 [email or web address] [facility] ([facility]), [address] [place], [address], 5 12:01:04 Referral otolaryngol ogist referral 2024 025 [email or web address] 2 Mao Zeng MD, [address] [place], [address], 5 09:40:04 overnight pulse oximetry referral 2024 025 [email or web address] 4 [facility], [facility] [place], [address], 5 17:13:23 Procedures polysomnogr aphy, titration study (PROC) 2024 025 4 [facility], [address] [place], [address], 5 17:52:28 Surgeries None recorded. Imaging US, echocardiog cindy, w/ contrast 2024 025 [email or web address] 2 [facility] (Scheduling Orders), [address] [place], [address], 5 19:19:55 US, thyroid 2024 025 [email or web address] 2 [facility] (Scheduling Orders), [address] [place], [address], 5 19:20:21 US, echocardiog cindy [email or web address] [facility], [address], [place], [address], 5 15:57:41 US, thyroid [facility] [address] [place], [address], 5 11:21:57 Medication Orders Jardiance 25 mg tablet 2024 025 [facility], [address], [place], [address], 13:15:43 glipizide ER 10 mg tablet, extended release 24 hr 2024 025 [facility], [address], [place], [address], 5 13:55:37 Basaglar KwikPen U-100 Insulin 100 unit/mL (3 mL) subcutaneou s 2024 025 [facility], [address], [place], [address], 5 12:32:12 felodipine ER 5 mg tablet,exte nded release 24 hr 2024 025 [facility], [address], [place], [address], 5 12:32:14 nicotine 21mg/24hr-1 4mg/24hr-7m g/24hr daily transderm patches,seq uentl 2024 025 [facility], [address], [place], [address], 08:10:53 oseltamivir 75 mg capsule 2024 025 [facility], [address], [place], [address], 15:50:05 Patient TargetsNo targets recorded. Patient InstructionsNo instructions recorded. Reason for Referral Overnight Pulse Oximetry Ref erral for Pulmonary hypertension Referring Physician: Robert Hurd [facility], Encounter Date: 12/14/2024 Study Abroad Coordinator Referral fo r Thyroid nodule Referring Physician: Robert Hurd [facility], Encounter Date: 04/05/2025 Results Created Date Observation Date Name Description Value Unit Range Abnormal Flag Note LastModifiedBy Organization Detail LastModifiedTime 11/27/1911/27/2024 rapid flu (A+B) , PCR Influenza A positi ve Not Available [facility] ([facility]) [address] [place], [address], 11/27/2024 11:12:16 11/27/19 25 11/27/2024 rapid flu (A+B) , PCR Influenza B negati ve Not Available [facility] ([facility]) [address] [place], [address], 11/27/2024 11:12:16 11/27/19 25 11/27/2024 SARS CoV 2 RNA, QL, nasop haryn x COVID negati ve Not Available [facility] ([facility]) [address] [place], [address], 11/27/2024 11:12:01 12/15/19 25 12/14/2024 imagi ng/di agnos tic resul t No observ ation record ed. asurface Not Available 2024 12:16:54 02/02/20 25 12/17/2024 pulse oxime try (PROC ) No observ ation record ed. [email or web address] Not Available 02/02 10:11:53 03/31/20 25 03/31/2025 US, thyro id No observ ation record ed. [address] [place], [address], 04/05/2025 13:15:59 04/18/20 25 03/31/2025 US, echoc ardio gram No observ ation record ed. [email or web address] [place] [address] [address], [place], [address], 04/30/2025 12:36:55 04/20/20 25 03/31/2025 US, thyro id No observ ation record ed. [address] (Scheduling Orders) [address] [place], [address], 04/20/2025 15:57:41 Result Notes None recorded. Problems Name Problem SNOMED Code Status Onset Date Resolution Date Notes Provider Name and Address Organization Details Recorded Time Depressive disorder 32230104 Active 2021 ABBEY parson [facility] 4 14:31:05 Generalize d anxiety disorder 82938837 Active 2021 Generalize d Anxiety disorder with Panic Attacks; 08/15/2022 2:06PM by Abbey Evans LPN, Office Visit; Promoted; acuity set as *; Anum parson [facility] 5 12:20:48 Migraine 56211467 Active 2021 Migraine Headache; 08/15/2022 2:06PM by Abbey Evans LPN, Office Visit; Promoted; acuity set as *; Anum parson [facility] 5 12:20:48 Diabetes mellitus 90693773 Active 2022 ABBEY EVANS null, [facility] 3 09:17:40 Essential hypertensi on 69426509 Active 2022 ABBEY EVANS null, [facility] 3 09:17:44 Hyperlipid emia 73154972 Active 2022 ABBEY EVANS null, [facility] 3 09:17:47 Rheumatoid arthritis 18624881 Active 2022 ABBEY EVANS null, [facility] 3 09:17:53 Tobacco dependence syndrome 87449506 Active 2022 Anum parson, [facility] 5 12:20:48 Smoker 53203689 Active 2022 Anum Shepherd null, [facility] 5 12:20:48 Chronic obstructiv e pulmonary disease 44336547 Active 2022 ABBEY EVANS null, [facility] 3 09:17:38 Foot callus 857241584 Active 2022 Anum Shepherd null, [facility] 5 12:20:48 Acquired deformity of ankle AND/OR foot 43549297 Active 2022 Anum Shepherd null, [facility] 5 12:20:48 Acute pyelonephr itis 34717025 Active 2023 Anum Shepherd null, [facility] 5 12:21:15 Nicotine dependence 28198968 Active 2023 [facility] 5 12:20:48 Echocardio gram abnormal 519153187 Active 2024 [facility] 5 09:40:52 Type 2 diabetes mellitus 50500035 Active 2024 [facility] 5 09:40:52 Dominant nodule of thyroid 047488997 Active 2024 [facility] 5 09:40:52 Problem Notes None recorded. Procedures Surgical History Date Name Laterality Status Provider Name and Address Organization Details Recorded Time 12/17/19 20 colonoscopy completed [facility] 07/31/2023 16:42:46 12/04/19 20 bone density scan completed [facility] 07/31/2023 16:43:09 02/16/20 18 [facility] 05/16/2023 09:17:31 hysterectomy completed [facility] 07/31/2023 16:42:04 appendectomy completed [facility] 07/31/2023 16:41:48 Imaging Results None recorded. Procedure Notes None recorded. Medical Equipment None Reported. Allergies Allergen ID Allergen Name Allergen Category Reaction Reaction Severity Criticality Documentation Date Start Date Code Code System Note Provider Name and Address Organization Details Recorded Time 2861 codeine medicatio n Not available Not available Not available 2023 2670 RxNorm [facility] 3 14:21:09 5274 aspirin medicatio n Not available Not available Not available 05/16/2023 1191 RxNorm ABBEY CRISTINA [facility], [facility], ... 3 16:36:52 Medications Name Sig Start Date Stop Date Status Note LastModified by Organization Details LastModified Time atorvasta tin 80 mg tablet TAKE 1 TABLET BY MOUTH AT BEDTIME 2024 active Not Available Not Available Not Avai lable glipizide ER 10 mg tablet, extended release 24 hr TAKE 1 TABLET BY MOUTH TWICE DAILY active Not Available Not Available No t Available prednison e 20 mg tablet TAKE 1 TABLET BY MOUTH ONCE DAILY WITH BREAKFAS T FOR 3 DAYS 12/14 completed Not Available Not Available Not Available felodipin e ER 5 mg tablet,ex tended release 24 hr TAKE 1 TABLET BY MOUTH ONCE DAILY active Not Available Not Available No t Available prednison e 5 mg tablet prn RA flare up 03/02 completed Not Available Not Available Not Available amlodipin e 5 mg tablet Take 1 tablet every day by oral route. 07/31 completed Not Available Not Available Not Available aspirin 81 mg tablet,de layed release Take 1 tablet every day by oral route. active Not Available Not Available No t Available Aleve 220 mg tablet Take 1 tablet every 12 hours by oral route. 12/14 completed Not Available Not Available Not Available garlic 1,000 mg capsule Take by oral route. 07/31 completed Not Available Not Available Not Available potassium 99 mg tablet prn leg cramps active Not Available Not Available No t Available lorazepam 0.5 mg tablet TAKE 1 TABLET BY MOUTH TWICE DAILY NEEDED FOR SEVERE ANXIETY. active Not Available Not Available No t Available methotrex ate sodium 2.5 mg tablet TAKE 4 TABLETS BY MOUTH IN THE MORNING AND FOUR IN THE EVENING ON THE SAME DAY ONCE A WEEK 12/28 completed Not Available Not Available Not Available Tylenol 500 mg tablet Take 2 tablets every 12 hours by oral route. 03/02 completed Not Available Not Available Not Available pantopraz ole 40 mg tablet,de layed release TAKE 1 TABLET BY MOUTH ONCE DAILY active Not Available Not Available No t Available oseltamiv ir 75 mg capsule TAKE 1 CAPSULE BY MOUTH TWICE DAILY FOR 5 DAYS 12/28 completed Not Available Not Available Not Available folic acid 1 mg tablet TAKE 1 TABLET BY MOUTH EVERY DAY active Not Available Not Available No t Available aspirin 81 mg tablet Take by oral route. 03/14 completed Not Available Not Available Not Available metoprolo l succinate ER 25 mg tablet,ex tended release 24 hr Take 0.5 tablets every day by oral route. active Not Available Not Available No t Available bee pollen 1,000 mg chewable tablet QD 03/02 completed Recorded 02/12/20 08 1:19PM by Abbey Evans LPN, Office Visit; Not Available Not Available Not Available levofloxa medina 750 mg tablet TAKE ONE TABLET BY MOUTH DAILY for SEVEN DAYS 09/16 completed Not Available Not Available Not Available albuterol sulfate HFA 90 mcg/actua tion aerosol inhaler INHALE 2 PUFFS BY MOUTH EVERY 6 HOURS active Not Available Not Available No t Available paroxetin e 40 mg tablet TAKE 1 TABLET BY MOUTH ONCE DAILY active Not Available Not Available No t Available lisinopri l 40 mg tablet TAKE 1 TABLET BY MOUTH ONCE DAILY active Not Available Not Available No t Available cefdinir 300 mg capsule TAKE 1 CAPSULE BY MOUTH EVERY 12 HOURS FOR 5 DAYS 12/14 completed Not Available Not Available Not Available doxycycli ne hyclate 100 mg tablet TAKE 1 TABLET BY MOUTH TWICE DAILY FOR 5 DAYS 12/14 completed Not Available Not Available Not Available amoxicill in 875 mg-potass ium clavulana te 125 mg tablet TAKE ONE TABLET BY MOUTH TWICE DAILY for SEVEN DAYS 09/16 completed Not Available Not Available Not Available Fish Oil Concentra te 1,000 mg capsule QD 03/02 completed Recorded 02/12/20 08 1:19PM by Abbey Evans LPN, Office Visit; Not Available Not Available Not Available Zetia 10 mg tablet Take 1 tablet every day by oral route. 03/14 completed Not Available Not Available Not Available nicotine 21mg/24hr -14mg/24h r-7mg/24h r daily transderm patches,s equentl Apply 1 patch every day by transder mal route for 21 days. 04/05 completed Not Available Not Available Not Available cinnamon bark 500 mg capsule QD 03/02 completed Recorded 02/12/20 08 1:21PM by Abbey Evans LPN, Office Visit; Not Available Not Available Not Available vitamin E QD 03/02 completed Recorded 02/12/20 08 1:20PM by Abbey Evans LPN, Office Visit; Not Available Not Available Not Available echinacea 750 03/02 completed Not Available Not Available Not Available garlic QD 07/31 completed Recorded 02/12/20 08 1:20PM by Abbey Evans LPN, Office Visit; Not Available Not Available Not Available Lipitor at bedtime 07/31 completed 436; Recorded 03/20/20 22 12:52PM by Abbey Evans LPN (Authori zed through Robert Hurd MD), Refill Request; Mail Order Quantity : 90 Tablet; Refill Quantity : 100; Tablet; Not Available Not Available Not Available lisinopri l daily 07/31 completed 436; Recorded 05/30/20 22 8:39AM by Abbey Evans LPN (Authori zed through Robert Hurd MD), Refill Request; Refill Quantity : 100; Tablet; Not Available Not Available Not Available paroxetin e HCl daily 07/31 completed 436; Recorded 11/27/19 23 2:22PM by Abbey Evans LPN (Authori zed through Robert Hurd MD), Refill Request; Refill Quantity : 90; Tablet; Not Available Not Available Not Available glipizide two times daily 07/31 completed 436; Recorded 05/30/20 22 8:39AM by Abbey Evans LPN (Authori zed through Robert Hurd MD), Refill Request; Refill Quantity : 180; Tablet; Not Available Not Available Not Available Vitamin D3 1 daily 07/31 completed Not Available Not Available Not Available Aspirin Childrens daily 07/31 completed 0; Recorded 08/15/20 22 2:11PM by Abbey Evans LPN, Office Visit; Not Available Not Available Not Available Humira every 2 weeks 07/31 completed 0; Recorded 08/15/20 22 2:11PM by Abbey Evans LPN, Office Visit; Not Available Not Available Not Available Humira Pen 40 mg/0.8 mL subcutane ous kit INJECT 40MG (0.8ML) SUBCUTAN EOUSLY every 14 days 12/28 completed Not Available Not Available Not Available Lantus Solostar U-100 Insulin 100 unit/mL (3 mL) subcutane ous pen INJECT 32 UNITS SUBCUTAN EOUSLY ONCE DAILY active Not Available Not Available No t Available diclofena c 1 % topical gel APPLY FOUR GRAMS TO AFFECTED AREA FOUR TIMES DAILY NEEDED 03/02 completed Not Available Not Available Not Available vitamin E (dl, acetate) 180 mg (400 unit) capsule Take by oral route. 03/14 completed Not Available Not Available Not Available glipizide ER 10 mg 24 hr tablet,ex tended release Take 1 tablet twice a day by oral route. 03/14 completed Not Available Not Available Not Available Vitamin D3 25 mcg (1,000 unit) chewable tablet Take by oral route. active Not Available Not Available No t Available methotrex ate 2.5 mg tablet Take 8 tablets every 2 weeks by oral route. 03/14 completed Not Available Not Available Not Available Jardiance 25 mg tablet Take 1 tablet by mouth once daily 2024 active Not Available Not Available Not Avai lable Estroven active Not Available Not Avai lable Not Available Basaglar KwikPen U-100 Insulin 30 units daily 03/14 completed Not Available Not Available Not Available Centrum Women 03/02 completed Not Available Not Available Not Available Ozempic 0.25 mg or 0.5 mg (2 mg/1.5 mL) subcutane ous pen injector Inject 0.5 mg every week by subcutan eous route. 03/02 completed Not Available Not Available Not Available Ozempic weekly 07/31 completed dispense a 90 days supply of prefille d injector pens with needles for .5 mg sc once weekly X 90 days.; 436; Recorded 11/23/19 23 8:35AM by Abbey Evans LPN (Authori jayson through Robert Hurd MD), Refill Request; Refill Quantity : 4.5; Millilit er; Not Available Not Available Not Available FreeStyle Klaudia 2 Sensor three times daily 09/16 completed Recorded 11/13/19 22 2:29PM by Amber Torrez LPN, Office Visit; Refill Quantity : 2; Each; Not Available Not Available Not Available FreeStyle Klaudia 2 Jackson three times daily 09/16 completed Recorded 11/13/19 22 2:29PM by Amber Torrez LPN, Office Visit; Refill Quantity : 0; Not Available Not Available Not Available Breztri Aerospher e 160 mcg-9mcg- 4.8mcg/ac tuation HFA aerosol inhaler Inhale 2 puffs twice a day by inhalati on route for 9 days. 03/14 completed Not Available Not Available Not Available Trelegy Ellipta 200 mcg-62.5 mcg-25 mcg powder for inhalatio n Inhale 1 puff every day by inhalati on route. 07/31 completed sample given Not Available Not Available Not Available Ozempic 0.25 mg or 0.5 mg (2 mg/3 mL) subcutane ous pen injector INJECT 0.5 MG SUBCUTAN EOUSLY ONCE A WEEK 09/08 completed Not Available Not Available Not Available Vitals Date Recorded Body height Body mass index (BMI) Body weight Body temperature Heart rate Oxygen saturation Oxygen saturation in Arterial blood by Pulse oximetry Systolic And Diastolic Provider Name and Address Organization Details Last Updated DateTime 5 168.91 cm 25.9 kg/m2 37638.5 6 g 99.5 [degF] 91 /min 93 % 93 % 162/68 mm[Hg] ABBEY EVANS [facility] 5 11:08:33 Date Recorded Body height Body mass index (BMI) Body weight Body temperature Heart rate Oxygen saturation Oxygen saturation in Arterial blood by Pulse oximetry Systolic And Diastolic Provider Name and Address Organization Details Last Updated DateTime 5 168.91 cm 26.4 kg/m2 36737.3 3 g 98.1 [degF] 60 /min 91 % 91 % 158/92 mm[Hg] Anum Shepherd [facility] 5 11:28:23 Date Recorded Body height Body mass index (BMI) Body weight Body temperature Heart rate Oxygen saturation Oxygen saturation in Arterial blood by Pulse oximetry Systolic And Diastolic Provider Name and Address Organization Details Last Updated DateTime 5 168.91 cm 26.6 kg/m2 27324.9 3 g 97.8 [degF] 76 /min 91 % 91 % 168/84 mm[Hg] [facility] 5 12:18:42 Date Recorded Body height Body mass index (BMI) Body weight Body temperature Heart rate Oxygen saturation Oxygen saturation in Arterial blood by Pulse oximetry Systolic And Diastolic Provider Name and Address Organization Details Last Updated DateTime 5 168.91 cm 26.9 kg/m2 31128.1 1 g 97.4 [degF] 71 /min 94 % 94 % 162/98 mm[Hg] [facility] 5 13:11:47 Date Recorded Body height Body mass index (BMI) Body weight Body temperature Heart rate Systolic And Diastolic Provider Name and Address Organization Details Last Updated DateTime 5 168.91 cm 27.3 kg/m2 62068.8 9 g 97.9 [degF] 79 /min 148/78 mm[Hg] [facility] 5 13:04:22 Social History Question Answer Notes LastModified by Organizat ion Details LastModified Time Tobacco Smoking Status Current Every Day [facility]/13/2023 14:08:17 What Is Your Relationship Status? [email or web address] Information not available 03/02/2024 How Much Tobacco Do You Smoke? 1 PPD [email or web address] Information not available 02/13/2023 Sex: Unknown Functional Status Question Answer Note LastModified by Organization D etails LastModified Time What is your level of alcohol consumption? None [email or web address] Information not available 02/13/2023 Are you able to care for yourself independently? Yes [email or web address] Information not available 03/02/2024 Mental Status None recorded. Family History Relationship Description Onset Age of this Age Resolved Age Notes LastModified by Organization Details LastModified Time Father Rheumatoid arthritis [email or web address] Not available 07/31 16:38:17 Father Coronary atherosclero sis [email or web address] Not available 07/31 16:38:59 Father Diabetes mellitus [email or web address] Not available 07/31 16:39:31 Maternal Uncle Cerebrovascu lar accident [email or web address] Not available 16:38:35 Sister Coronary atherosclero sis Not available 07/31 16:38:59 Brother Coronary atherosclero sis [email or web address] Not available 07/31 16:38:59 Mother Diabetes mellitus [email or web address] Not available 07/31 16:39:31 Maternal Grandfather Diabetes mellitus [email or web address] Not available 07/31 16:39:31 Maternal Grandmother Diabetes mellitus [email or web address] Not available 07/31 16:39:31 Medical History No medical history recorded. Gynecological HistoryNo gynecological history recorded. Obstetrics History GPAL:G 0 P 0 0 0 0 Immunizations Vaccine Type Date Status Note Provider Nam e and Address Organization Details Recorded Time COVID-19, mRNA, LNP-S, PF, 100 mcg/0.5mL dose or 50 mcg/0.25mL dose 1 completed Not Available [facility] 06/01/2023 02:48:45 COVID-19, mRNA, LNP-S, PF, 100 mcg/0.5mL dose or 50 mcg/0.25mL dose 1 completed Not Available [facility] 06/01/2023 02:48:45 COVID-19, mRNA, LNP-S, PF, 100 mcg/0.5mL dose or 50 mcg/0.25mL dose 1 completed Not Available [facility] 06/01/2023 02:48:45 Influenza, split virus, trivalent, preservative 1 completed Not Available [facility] 06/01/2023 02:48:46 Influenza, split virus, trivalent, preservative 1 completed Not Available [facility] 06/01/2023 02:48:46 SARS-COV-2 (COVID-19) vaccine, UNSPECIFIED 1 completed NAUN parson, [facility] 05/16/2023 09:14:36 SARS-COV-2 (COVID-19) vaccine, UNSPECIFIED 1 completed NAUN CORONADO null, [facility] 05/16/2023 09:14:55 SARS-COV-2 (COVID-19) vaccine, UNSPECIFIED 1 completed NAUN TRINOFJOYCELYN null, [facility] 05/16/2023 09:15:18 pneumococcal polysaccharide PPV23 1 completed NAUN parson, [facility] 05/16/2023 09:15:51 zoster live 1 completed NAUN parson, [facility] 05/16/2023 09:16:20 Past Encounters Encounter ID Performer Location Encounter Start Date Encounter Closed Date Diagnosis/Indication Diagnosis SNOMED-CT Code Diagnosis ICD10 Code Diagnosis Note [id number] Robert Hurd MD [facility] ([facility]) [address] [place] [address] [id number] 02/13/2023 13:41:35 02/14/2023 08:53:25 Diabetes mellitus 34911423 E11.65 Hyperlipidemia 95835366 E78.5 Essential hypertension 50440001 I10 Rheumatoid arthritis 698 86215 M06.9 Obstructiv e sleep apnea syndrome 94675852 G47.33 Tobacco de pendence syndrome 65860324 F17.200 Screening mammography 24 682484 Z12.31 Screening for osteoporosis 301851282 Z13.820 Smoker 89711071 F17.200 Chronic ob structive pulmonary disease 76500327 J44.9 Foot callus 861434362 L8 4 Acquired d eformity of ankle AND/OR foot 54676160 M21.969 [id number] Robert Hurd MD [facility] ([facility]) [address] [place] [address] [id number] 2023 13:45:19 2023 15:44:16 Chronic obstructive pulmonary disease 46111875 J44.9 improved.c ontinue trelegy Essential hypertension 44625851 I10 controlled report home bp saturday [id number] Robert Hurd MD [facility] [facility] ([facility]) [address] [place] [address] [phone] 5 07/31/2023 14:40:01 07/31/2023 17:42:39 Diabetes mellitus 18269207 E11.65 Acquired d eformity of ankle AND/OR foot 62593481 M21.969 Diabetic p eripheral neuropathy 888186579 E11.40 [id number] Robert Hurd MD [facility] ([facility]) [address] [place] [address] [phone] 09/16/2023 14:56:42 09/17/2023 12:09:46 Diabetes mellitus 17764608 E11.65 [id number] Robert Hurd MD [facility] ([facility]) [address] [place] [address] [phone] 5 02/24/2024 11:53:01 02/25/2024 10:04:31 Diabetes mellitus 44688660 E11.65 Essential hypertension 23160216 I10 controlled report home bp saturday Hyperlipidemia 86299854 E78.5 Screening for osteoporosis 441445038 Z13.883 [id number] Robert Hurd MD [facility] ([facility]) [address] [place] [address] [phone] 03/02/2024 14:25:15 03/02/2024 15:47:47 Chronic obstructive pulmonary disease 48692482 J44.9 Diabetes mellitus 605446 09 E11.69 Essential hypertension 09783010 I10 controlled report home bp saturday Hyperlipidemia 50682815 E78.5 Rheumatoid arthritis 698 02561 M06.9 Depressive disorder 3548 9007 F32.A Nicotine dependence 5629 4008 F17.200 Type 2 bryanna betes mellitus 75942216 E11.9 [id number] Robert Hurd MD [facility] ([facility]) [address] [place] [address] [phone] 5 08/25/2024 11:21:21 08/26/2024 11:54:54 Diabetes mellitus 79515940 E11.69 [id number] Robert Hurd MD [facility] ([facility]) [address] [place] [address] [phone] 09/08/2024 10:11:10 09/10/2024 08:24:01 Type 2 diabetes mellitus 11738019 E11.9 Community acquired pneumonia 392703568 J18.9 she is remarkably improved will work on sugar control as she did not tolerate ozempic and d/c that. her sugars are not controlled . [id number] Robert Hurd MD [facility] ([facility]) [address] [place] [address] [phone] 09/16/2024 13:47:20 09/17/2024 11:11:08 Type 2 diabetes mellitus 60694191 E11.9 she will call with sugars in 5 days or sooner if low. [id number] Robert Hurd MD [facility] ([facility]) [address] [place] [address] [phone] 11/27/2024 10:59:17 12/02/2024 11:02:02 Acute exacerbation of chronic obstructive pulmonary disease 541041942 J44.1 to er if short of breath or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
--- NOTE | 2025-05-29 19:13 | CTR_ITS ---
PROCEDURE INFORMATION: Exam: CT Head Without Contrast Exam date and time: 05/29/2025 7:22 PM Age: 70 years old Clinical indication: Pain; Headache; MARTIN with hypertension; Additional info: Headache HTN TECHNIQUE: Imaging protocol: Computed tomography of the head without contrast. Radiation optimization: All CT scans at this facility use at least one of these dose optimization techniques: automated exposure control; mA and/or kV adjustment per patient size (includes targeted exams where dose is matched to clinical indication); or iterative reconstruction. COMPARISON: CT head wo con* [id number] 03/13/2023 7:51 AM RADIATION DOSE METRICS: Total DLP (mGy-cm): 1026.05 FINDINGS: Brain: No acute intra-axial hemorrhage. No masses. Normal jefferson-white matter differentiation. No midline shift or mass effect. Moderate patchy hypodensity in hemispheric white matter bilaterally most likely due to chronic microangiopathy. Cerebral ventricles: No ventriculomegaly. Pituitary gland and sella: Incidentally noted empty sella. Paranasal sinuses: Visualized sinuses are unremarkable. No fluid levels. Mastoid air cells: Visualized mastoid air cells are well aerated. Bones: Unremarkable. No acute fracture. Soft tissues: Unremarkable. CT/CT head wo con* [id number] IMPRESSION: No acute intracranial abnormality.
--- NOTE | 2025-05-29 19:17 | ED_ITS ---
HPI - Headache 2 General: Chief Complaint: Headache Stated Complaint: headache Time Seen by Provider: 05/29/25 18:58 History of Present Illness: 70-year-old female with a history of lc dunne. She says she has had her headache since this morning. Is been quite severe. She says it is hard to find a comfortable position for her head. Her neck is not stiff. Headache is on both sides of her head and in the back of her head. Her neck does not hurt. She feels like she needs to vomit, but she cannot. She denies fever. No diarrhea or cough. No chest discomfort. She perhaps had some mild visual changes that are nonspecific this morning, but the bed has since resolved. She has had intermittent mild confusion which has since resolved. She states the last time she had a headache like this was after her son was born when she had spinal anesthesia 50 some years ago. Related Data Home Medications ?Medication ?Instructions ?Recorded ?Confirmed atorvastatin 80 mg tablet (Lipitor) 80 mg PO DAILY 07/2408/31/24 glipizide 10 mg tablet 10 mg PO DAILY 04/12/2008/05 lorazepam 0.5 mg tablet 0.5 mg PO DAILY PRN severe a nxiety 04/12/20 08/31/24 insulin glargine 100 unit/mL (3 15 unit SUBCUT DAILY 1 08/31/24 mL) subcutaneous pen (Basaglar KwikPen U-100 Insulin) lisinopril 40 mg tablet 40 mg PO DAILY 08/31/2408/05 Previous Rx's ?Medication ?Instructions ?Recorded pantoprazole 40 mg tablet,delayed 40 mg PO DAILY #30 t abs 01/11/21 release methotrexate sodium 2.5 mg tablet See Rx Instructions PO Q7D #40 tabs 10/16/23 amlodipine 10 mg tablet 10 mg PO DAILY #30 tabs 05/05 04/28 Allergies Allergy/AdvReac Type Severity Reaction Status Date / Time aspirin Allergy ADR-Nausea Verified 02/08/24 21:44 codeine Allergy Unknown Verified 02/08/24 21:44 penicillin G AdvReac Intermediate ALGY-Rash Verified 09/01/24 12:35 PFS ED 2 PFSH: Medical History Chronic steroid use Seronegative rheumatoid arthritis of both hands Hammertoes of both feet Foot callus Diabetes mellitus High risk medication use Immunization counseling Seropositive rheumatoid arthritis Surgical History (Updated 09/02/24 @ 00:02 by BRYON Shea) No pertinent past surgical history Family History Other Arthritis Cancer Heart disease Stroke Social History Smoking and tobacco/nicotine status: never used tobacco/nicotine Alcohol intake: never Physical Exam 2 Const: COMMON NORMALS: alert GENERAL APPEARANCE: cooperative; not frail appearing ORIENTATION/CONSCIOUSNESS: Yes oriented to person, Yes oriented to place and Yes oriented to time HENMT: COMMON NORMALS: normocephalic, atraumatic and Normal external nose present HEAD & SCALP: normocephalic and atraumatic FACE & SINUS: normal facial exam and face symmetric NOSE: Normal external nose present Eye: COMMON NORMALS: Equal, round and reactive pupils present and EOMs intact bilaterally PUPIL: Yes Equal, round and reactive pupils present Neck/C-Spine: COMMON NORMALS: no meningeal signs GENERAL: Yes trachea midline Chest: CHEST: Yes Symmetrical chest wall rise Resp: COMMON NORMALS: normal respiratory effort, No retractions, No use of accessory muscles and clear to auscultation bilaterally AUSCULTATION: clear to auscultation bilaterally Cardio: COMMON NORMALS: regular rate and regular rhythm RATE: regular rate RHYTHM: regular rhythm GI: COMMON NORMALS: Normal to inspection, nondistended, normoactive bowel sounds present Extremity: COMMON NORMALS: no pedal edema Neuro: TEREZA COMA SCALE: document GCS findings Berthold coma scale eye opening: Spontaneous Tereza coma scale verbal response: Orientated Berthold coma scale motor response: Obey commands Tereza coma scale total score: 15 S ENSORIUM/ORIENTATION: Yes alert, Yes oriented to person, Yes oriented to place and Yes oriented to time MENINGEAL SIGNS: Yes no meningeal signs and No nuccal rigidity COORDINATION/BALANCE: [id number]-[id number] test normal and jbyr-yz-ormk test normal SPEECH: speech normal SENSORY EXAM: Yes extremities (intact) MOTOR EXAM: Pronator motor function not present C OORDINATION: lsvdtz-ls-zbxy test normal and izwd-rc-[id number] test normal Psych: COMMON NORMALS: speech normal SPEECH: Yes normal speech Skin: COMMON NORMALS: no rashes or lesions noted GENERAL SKIN EXAM: no rashes or lesions noted Course 2 Vital Signs: Vital signs: Vital Signs Temperature 97.4 F L 05/29/25 18:13 Pulse Rate 59 L 05/29/25 21:25 Respiratory Rate 16 05/29/25 21:25 Blood Pressure 140/70 05/29/25 21:25 Pulse Oximetry 97 05/29/25 21:25 Oxygen Delivery Me thod Room Air 05/29/25 20:58 MDM - Headache Medical Decision Making Headache with significant hypertension and a 70-year-old female who does not normally have headaches. Hypertension improved after medication. Headache resolved. CT is negative for any acute disease. No hemorrhage. CBC and BMP are not remarkable. Urinalysis is not remarkable. Other laboratory benign. With resolution of her symptoms, improvement in her blood pressure, she will be discharged. She will log her blood pressures twice daily starting tomorrow. Amlodipine for hypertension if needed. Close outpatient follow-up. Return for new or worsening symptoms. Lab Data 05/29/25 19:47 05/29/25 19:[address] 05/29/25 19:13 IMPRESSION: No acute intracranial abnormality. Laboratory Results WBC 10.82 10^3/uL (3.29-11.43) 05/29/25 19:47 RBC 5.17 10^6/uL (3.85-5.65) 05/29/25 19:47 Hgb 15.30 g/dL (11.27-16.99) 05/29/25 19:47 Hct 46.4 % (36-47) 05/29/25 19:47 MCV 89.7 fl (85-98) 05/29/25 19:47 MCH 29.6 pg (27-33) 05/29/25 19:47 MCHC 33.0 g/dL (30-55) 05/29/25 19:47 RDW 13.4 % (12.1-15.1) 05/29/25 19:47 Plt Count 332 10^3/cmm (157-399) 05/29/25 19:47 MPV 10.3 fL (7.4-10.4) 05/29/25 19:47 Neut % (Auto) 60.8 % 05/29/25 19:47 Lymph % (Auto) 31.0 % 05/29/25 19:47 [place] % (Auto) 5.5 % 05/29/25 19:47 Eos % (Auto) 1.0 % 05/29/25 19:47 Baso % (Auto) 1.4 % 05/29/25 19:47 Neut # (Auto) 6.59 10^3/uL (1.8-7.7) 05/29/25 19:47 Lymph # (Auto) 3.4 10^3/uL (0.8-4.8) 05/29/25 19:47 [place] # (Auto) 0.6 10^3/uL (0.2-0.9) 05/29/25 19:47 Eos # (Auto) 0.1 10^3/uL (0.0-0.8) 05/29/25 19:47 Baso # (Auto) 0.2 10^3/uL (0.0-0.1) H 05/29/25 19:47 Nucleated RBC % (auto) 0 % 05/29/25 19:47 Nucleated RBCs # 0.0 /100WBC 05/29/25 19:47 PT 12.90 SECONDS (12.1-14.9) 05/29/25 19:47 INR 0.91 (0.8-1.2) 05/29/25 19:47 APTT 25.9 SECONDS (23.9-36.7) 05/29/25 19:47 Sodium 139 mmol/L (136-145) 05/29/25 19:47 Potassium 3.7 mmol/L (3.5-5.1) 05/29/25 19:47 Chloride 101 mmol/L (98-107) 05/29/25 19:47 Carbon Dioxide 26 mmol/L (22-29) 05/29/25 19:47 Anion Gap 15.7 (5-19) 05/29/25 19:47 BUN 8 mg/dL (8-23) 05/29/25 19:47 Creatinine 0.6 mg/dL (0.5-0.9) 05/29/25 19:47 GFR Calculation 98.8 mL/min (90-130) 05/29/25 19:47 Glucose 176 mg/dL (65-115) H 05/29/25 19:47 Calculated Osmolality 291 mOsm/kg (285-295) 05/29/25 19:47 Calcium 9.1 mg/dL (8.5-10.5) 05/29/25 19:47 Total Bilirubin 0.3 mg/dL (0.15-1.2) 05/29/25 19:47 AST 10 U/L (0-32) 05/29/25 19:47 ALT 11 U/L (0-33) 05/29/25 19:47 Alkaline Phosphatase 153 U/L (35-105) H 05/29/25 19:47 Total Protein 8.1 g/dL (6.6-8.7) 05/29/25 19:47 Albumin 4.5 g/dL (3.5-5.2) 05/29/25 19:47 Globulin 3.6 g/dL (1.3-4.6) 05/29/25 19:47 Urine Color Yellow (Yellow) 05/29/25 20:41 Urine Appearance Clear (CLEAR) 05/29/25 20:41 Urine pH 7.0 (5-7) 05/29/25 20:41 Ur Specific [place] 1.018 (1.005-1.030) 05/29/25 20:41 Urine Protein Trace (Negative) A 05/29/25 20:41 Urine Glucose (UA) Trace (Normal) H 05/29/25 20:41 Urine Ketones Negative (Negative) 05/29/25 20:41 Urine Blood Negative (Negative) 05/29/25 20:41 Urine Nitrate Negative (Negative) 05/29/25 20:41 Urine Bilirubin Negative (Negative) 05/29/25 20:41 Urine Urobilinogen 1.0 mg/dL (Negative) 05/29/25 20:41 Ur Leukocyte Esterase Negative (Negative) 05/29/25 20:41 Urine RBC 0-4 /hpf (0-2) H 05/29/25 20:41 Urine WBC 0-4 /hpf (0-5) H 05/29/25 20:41 Ur Squamous Epith Cells 5-10 /hpf (0-5) H 05/29/25 20:41 Amorphous Sediment Not Reportable 05/29/25 20:41 Urine Bacteria Trace /hpf (NONE) 05/29/25 20:41 All radiology interpretation(s) finalized by discharge Discharge Plan Discharge Patient Disposition: Home Clinical Impression: Headache, Hypertension Condition: Stable Prescriptions: New amlodipine 10 mg tablet 10 mg PO DAILY Qty: 30 0RF No Action glipizide 10 mg tablet 10 mg PO DAILY atorvastatin [Lipitor] 80 mg tablet 80 mg PO DAILY lorazepam 0.5 mg tablet 0.5 mg PO DAILY PRN (Reason: severe anxiety) pantoprazole 40 mg tablet,delayed release (DR/EC) 40 mg PO DAILY Qty: 30 3RF methotrexate sodium 2.5 mg tablet See Rx Instructions PO Q7D Qty: 40 3RF Rx Instructions: Split dose...4 tabs in am and 4 tabs in pm on same day once a week. PO every 7 days; lisinopril 40 mg tablet 40 mg PO DAILY insulin glargine [Basaglar KwikPen U-100 Insulin] 100 unit/mL (3 mL) insulin pen 15 unit SUBCUT DAILY Discharge Orders: Discharge ED (Routine); Ordered 05/29/25 Ordered By: Lucas Fernandes Referrals: Arnoldo Avalos MD [Primary Care Provider, [facility]] - 1-3 days Patient Instructions: Acute Headache (ED), Hypertension (ED), Opioid Safety, Pain Management, Patient Portal & Teresa Instructions Activity Restrictions/Additional Instructions: Do not check your blood pressure tonight. Check your blood pressure twice daily starting tomorrow. If your blood pressure is greater than 150/90, you may take the medication you were prescribed this evening. If it is not, you do not have to take the medication. Return for uncontrolled blood pressure despite the above, worsening headache, mental status changes, vision or language changes, any other concerning symptoms. Call your doctor on Saturday for a follow-up appointment. Print Language: Turkmen Coding Level of Care Code ED Technical Services Consultant for Gloria Chow
[2025-05-29] MEDS: ondansetron 2 mg/ML SDV 2 mL 4 MG IVP (19:54)
[2025-05-29] MEDS: metoclopramide 5 mg/mL SDV 2 mL 10 MG IVP (19:55)
[2025-05-29] MEDS: fentaNYL 50 mcg/mL INJ 2mL IVP (20:00)
[2025-05-29] MEDS: labetalol 5 mg/mL SDV 20mL 20 MG IVP (20:01)
[2025-05-29 20:02] VITALS: BP 205/84; PULSE 67; RESP 16; O2SAT 99
[2025-05-29 20:17] LABS: Hematocrit 46.4 % (36-47); Hemoglobin 15.30 g/dL (11.27-16.99); Mean Corpuscular HGB Conc 33.0 g/dL (30-55); Mean Corpuscular Hemoglobin 29.6 pg (27-33); Mean Corpuscular Volume 89.7 fl (85-98); Nucleated Red Blood Cells % 0 %; Platelet Count 332 10^3/cmm (157-399); Red Blood Count 5.17 10^6/uL (3.85-5.65); White Blood Count 10.82 10^3/uL (3.29-11.43)
[2025-05-29 20:28] LABS: INR 0.91 (0.8-1.2); Prothrombin Time 12.90 SECONDS (12.1-14.9)
[2025-05-29 20:29] LABS: Partial Thromboplastin Time 25.9 SECONDS (23.9-36.7)
[2025-05-29 20:33] LABS: Alanine Aminotransferase 11 U/L (0-33); Albumin Level 4.5 g/dL (3.5-5.2); Alkaline Phosphatase 153 U/L (35-105); Anion Gap 15.7 (5-19); Aspartate Amino Transferase 10 U/L (0-32); Blood Urea Nitrogen 8 mg/dL (8-23); Calcium 9.1 mg/dL (8.5-10.5); Carbon Dioxide 26 mmol/L (22-29); Chloride 101 mmol/L (98-107); Creatinine Clr Calc Pharmacy 70.5294; Globulin 3.6 g/dL (1.3-4.6); Glucose 176 mg/dL (65-115); Osmolality Calculated 291 mOsm/kg (285-295); Potassium 3.7 mmol/L (3.5-5.1); Sodium 139 mmol/L (136-145); Total Protein 8.1 g/dL (6.6-8.7)
[2025-05-29 20:51] LABS: Glucose Urine UA Trace (Normal); Nitrate Urine Negative (Negative); Specific Gravity, Urine 1.018 (1.005-1.030)
[2025-05-29 20:58] VITALS: BP 150/74; PULSE 58; RESP 16; O2SAT 99
[2025-05-29 21:08] LABS: Add Urine Microscopic? YES; UA Manual Slide Review YES
[2025-05-29 21:25] VITALS: BP 140/70; PULSE 59; RESP 16; O2SAT 97
== END 2025-05-29 21:33 | disposition home or self-care (01) ==
PROVIDERS: Emergency Provider Emergency Medicine; PCP Family Medicine
DX: R51.9 Headache, unspecified (principal); I10 Essential (primary) hypertension; Z79.4 Long term (current) use of insulin; E11.9 Type 2 diabetes mellitus without complications
CPT/HCPCS: 36415; 70450; 80053; 81001; 85025; 85610; 85730; 96374; 96375; 99285; J2405; J2765; J3010; J3490; J9999

== ENCOUNTER 2025-06-11 12:01 | Outpatient (CLI) | payer MEDICARE, SELFPAY ==
--- NOTE | 2025-06-11 12:13 | USCV_ITS ---
MaribellPalma Sage Age: 70 Gender: F : 1955 Exam Date: 06/11/2025 12:48 Ordering Phys: Arnoldo Avalos MD Technologist: SHARA [place] [facility] [place]: abnormal findings of diagnostic imaging of heart BP: 138 / 84 HR: 65 Rhythm: Sinus Technical Quality: Adequate MEASUREMENTS (Male / Female) Normal Values 2D ECHO LV Diastolic Diameter PLAX 5.0 cm 4.2 - 5.9 / 3.9 - 5.3 cm IVS Diastolic Thickness 1.1 cm 0.6 - 1.0 / 0.6 - 0.9 cm IVS Systolic Thickness 1.5 cm LVPW Diastolic Thickness 1.2 cm 0.6 - 1.0 / 0.6 - 0.9 cm LVPW Systolic Thickness 1.7 cm LVOT Diameter 2.0 cm LV Ejection Fraction 2D Teich 63.9 % LV Ejection Fraction MOD 4C 68.6 % LV Ejection Fraction MOD 2C 68.4 % LV Ejection Fraction 2C AL 69.1 % LA Diameter 3.5 cm RA Systolic Volume 4C AL 32.5 ml RA Systolic Volume 4C MOD 32.0 ml LA Sys Volume AL 42.1 cm cubed LA Sys Volume Index AL 21.2 cm cubed/m squared Aorta at Sinotubular Diameter 2.3 cm IVC Diameter 1.5 cm M-MODE LA Ao Ratio MM 1.6 AV Cusp Separation MM 1.6 cm DOPPLER AV Peak Velocity 138.0 cm/s LVOT Peak Velocity 122.0 cm/s AV Area Cont Eq vti 2.5 cm squared AV Area Cont Eq pk 2.9 cm squared MV Peak Velocity 100.0 cm/s MV Area PHT 3.5 cm squared Mitral E to A Ratio 0.6 PV Peak Velocity 112.0 cm/s RV Ejection Time 0.3 s FINDINGS Left Ventricle Normal left ventricular size, systolic function and wall thickness, with no regional wall motion abnormalities. Left ventricular ejection fraction is estimated at 60 %. Grade I/IV diastolic dysfunction (abnormal relaxation filling pattern), normal to mildly elevated filling pressures. Right Ventricle The right ventricle is normal in size and function. Right Atrium The right atrium is normal in size. Left Atrium The left atrium is normal in size. Mitral Valve Moderately thickened mitral valve. Moderate mitral annular calcification. No mitral valve stenosis. Aortic Valve Mild aortic valve calcification. No aortic valve stenosis. Trace aortic valve regurgitation. Tricuspid Valve Structurally normal tricuspid valve without significant stenosis or regurgitation. Pulmonary artery systolic pressure is normal. Pulmonic Valve Structurally normal pulmonic valve without significant stenosis. There is no pulmonic regurgitation. Pericardium Normal pericardium without effusion. Aorta Normal ascending aorta dimension. IVC The inferior vena cava appears normal. CONCLUSIONS Normal left ventricular size, systolic function and wall thickness, with no regional wall motion abnormalities. Left ventricular ejection fraction is estimated at 60 %. Grade I/IV diastolic dysfunction (abnormal relaxation filling pattern), normal to mildly elevated filling pressures. No significant valve abnormalities. There is no pericardial effusion. Right atrial pressure is around 5 mm of mercury. Sil Pat MD (Electronically Signed) Final Date: 11 June 2025 19:59 S
[2025-06-11] MEDS: perflutren protein-a microsphr 0.22 mg/mL SDV 3 mL IV (13:40)
== END 2025-06-11 12:02 | disposition home or self-care (01) ==
LOC: RAD 12:04
PROVIDERS: PCP Family Medicine; Visit Provider Family Medicine
DX: R93.1 Abnormal findings on diagnostic imaging of heart and coronary circulation (principal); I50.30 Unspecified diastolic (congestive) heart failure
CPT/HCPCS: C8929